=== PATIENT | female | born 1940 | race Caucasian/White ===

== ENCOUNTER 2016-06-12 11:41 | Day surgery (SDC) | payer OTHER, BC ==
[2016-06-12] VITALS (8 sets, daily range): BP systolic 108–136; BP diastolic 51–63; PULSE 60–67; TEMP 36.4–36.7; O2SAT 94–99; Ht 170.2 cm; Wt 59.0 kg
[~2016-06-12] VITALS: Ht 170.2 cm; Wt 59.0 kg
[~2016-06-12 11:41] MED LIST: CEFAZOLIN 1000MG/55 ML D5W IV SCH; CYTM25 PO; FOSAMAX; LACTATED RINGER'S 1000ML 1,000 ML IV SCH; LITH300T2 PO; SYN100 PO
[2016-06-12] MEDS ORDERED: MULT-506 PO (12:14)
[2016-06-12] MEDS ORDERED: CYAN100073 PO (12:14)
[2016-06-12 12:57] LABS: HEMATOCRIT 35.7 % (37-47); MEAN CELL VOLUME 89.7 fL (80-100); MEAN CORPUSCULAR HEMOGLOBIN 29.6 pg (25-34); PLATELET COUNT 189 K/uL (130-400); RED BLOOD COUNT 3.98 M/uL (4.2-5.4); WHITE BLOOD COUNT 7.19 K/uL (4.8-10.8)
[2016-06-12 13:12] LABS: PARTIAL THROMBOPLASTIN RATIO 1.1
[2016-06-12 13:18] LABS: MEAN CORPUSCULAR HGB CONC 33.1 g/dl (32-36)
[2016-06-12 13:20] LABS: BUN/CREATININE RATIO 25.8 (10-20); CALCIUM 9.2 mg/dl (8.5-10.1); CREATININE 0.73 mg/dl (0.60-1.20); POTASSIUM 4.4 mmol/L (3.5-5.1)
[2016-06-12] MEDS ORDERED: BACITRACIN 50000 UNIT VIAL ONE (13:53)
[2016-06-12] MEDS ORDERED: BACITRACIN OINT 0.9 GM PKT ONE (13:53)
[2016-06-12] MEDS ORDERED: LIDOCAINE HCL 1% 20 ML VIAL ONE (13:53)
--- NOTE | 2016-06-12 14:09 | Procedure Note ---
Pre-Mod Sedation Assessment General Date of Moderate Sedation: Jun 12, 2016. Vital Signs: Vital Signs Past 12 Hours Date Time Temp Pulse Resp B/P Pulse Ox O2 Delivery O2 Flow Rate FiO2 06/12/16 11:45 36.4 67 18 108/53 94 Room Air Review Cardiovascular: regular rate, rhythm Abdomen: normal bowel sounds Lungs: lungs clear Pre-Sedation Airway Assessment Oral Cavity: Capped Teeth Smoking Status: Never Smoker Procedure Planning Contraindications-for Mod Sed: None Yes Notes The planned sedation has been discussed with the patient and consent obtained. I have identified the patient, determined the appropriateness of sedation and have assessed the patient immediately prior to the procedure. All medicine(s) and interventions are by my order.
--- NOTE | 2016-06-12 14:09 | History & Physical Bridge Note ---
H&P Re-Evaluation Bridge Note: I have examined the patient, reviewed the History & Physical and in the interval since the performance of the History & Physical I have noted the following changes of clinical significance: No changes noted
[2016-06-12] MEDS ORDERED: MIDAZOLAM HCL 5 MG/ML 1 ML VIAL ONE (14:17)
[2016-06-12] MEDS ORDERED: FENTANYL CITRATE INJ 50 MCG/1 ML 2 ML VIAL ONE (14:17)
--- NOTE | 2016-06-12 15:12 | Procedure Note ---
Post-Mod Sedation Assessment General Date of Moderate Sedation Jun 12, 2016. Vital Signs: Vital Signs Past 12 Hours Date Time Temp Pulse Resp B/P Pulse Ox O2 Delivery O2 Flow Rate FiO2 06/12/16 11:45 36.4 67 18 108/53 94 Room Air Review - Discharge Criteria Vital Signs Stable: Yes Alert/Oriented/Conversant: Yes Returned to Baseline Mental St: Yes Nausea Absent/Minimal: Yes Pain/Discomfort/Absent/Minimal: Yes Normal/Baseline Respirations: Yes Active Bleeding?: No
[2016-06-12] MEDS ORDERED: KETOROLAC TROMETHAMINE 10 MG TAB PO PRN (15:15)
[2016-06-12] MEDS ORDERED: ACETAMINOPHEN 325 MG TAB PO PRN (15:15)
--- NOTE | 2016-06-12 15:15 | Cardiology Procedure Brief Nt ---
Preliminary Cardiology Note Procedure Date Jun 12, 2016. Pre-Procedure Diagnosis pacemaker GURMEET, lateral pacemaker position Post-Procedure Diagnosis same Procedure(s) Performed 1. Dual-chamber pacemaker replacement 2. Pacemaker relocation medially Gold [employer] Dr. Arora Mold Sander(s) none Estimated Blood Loss 10 cc Preliminary Findings Good chronic lead measurements Recommendations Monitor briefly and discharge Specimens Old pacemaker, return to Medtronic Anesthesia local with sedation Complication(s) None Disposition MTU
--- NOTE | 2016-06-12 16:13 | OPERATIVE REPORT ---
DATE OF OPERATION: 06/12/2016 DATE OF PROCEDURE: 06/12/2016. PREOPERATIVE DIAGNOSES: 1. Pacemaker at elective replacement indicator. 2. Pacemaker located laterally in the chest wall causing discomfort. POSTOPERATIVE DIAGNOSIS: Same. PROCEDURE: 1. Dual chamber pacemaker replacement. 2. Pocket location moved medial. SURGEON: Kvng Aorra M.D. ANESTHESIA: Local with sedation. HISTORY OF PRESENT ILLNESS: This is a 76-year-old woman who has a history of sick sinus syndrome for which she had a dual chamber pacemaker implanted 12/05/2007. That device reached recommended replacement time on 02/16/2016. She has been feeling fatigued with exertion since, most likely due to lack of rate response. She is brought to the laboratory for device replacement. She also notes that when she holds an against her chest she has discomfort at her pacemaker site which is nearly touching her left humerus in the lateral position. She is therefore brought to the laboratory for device replacement and moving the pacemaker more medial. OPERATION: After obtaining informed consent for the procedure, she was brought to the laboratory on the afternoon of 06/12/2016 being n.p.o. after midnight. She was identified in the laboratory, prepped and draped in standard sterile manner for a left-sided pacemaker revision. The left prepectoral region was anesthetized with 1% lidocaine local anesthetic and a 5 cm incision was made through the old scar and carried down to the pacemaker generator. The generator was dissected free of tissue and explanted. The pacemaker was disconnected from the leads. The old pacemaker was confirmed to be a Medtronic model ADDR01, serial number [id number], implanted 12/05/2007. This device will be returned to [employer]. The atrial lead is a Medtronic model 5076, serial number [id number] implanted 12/05/2007. This lead was evaluated in bipolar configuration at a pulse width of 0.5 milliseconds. Final atrial pacing threshold was 0.7 volts with a current of 1.6 milliamp, 5-volt lead impedance was 411 ohms and P-waves were sensed at 1.2 millivolts. This is a good threshold and this lead can be used. The ventricular lead is a Medtronic model 4092, serial number [id number], implanted 12/05/2007. This lead was evaluated in bipolar configuration at a pulse width of 0.5 milliseconds. The pacing threshold was 1.7 volts with a current of 4.3 milliamp, 5-volt lead impedance was 485 ohms and R-waves were sensed at 6.1 millivolts. Diaphragmatic pacing was not evaluated. This is a good threshold and this lead can be used. A new pacemaker (Medtronic Adapta) was attached to the leads and found to be functioning normally. The pacemaker pocket was enlarged in the medial direction about 3 cm through the pacemaker pocket. The pacemaker was then placed in the new pocket and the pocket was closed on the lateral end of the pacemaker to ensure that it did not migrate laterally. This was done with a 3-0 Vicryl suture. The incision was then closed with a running double subcutaneous closure of 3-0 Vicryl followed by running subcuticular skin closure of 4-0 Vicryl. Bacitracin ointment was placed on incision and a pressure dressing applied. The patient tolerated the procedure well, there were no complications and estimated blood loss was 10 mL. The patient was transferred to the ambulatory unit for brief monitoring and discharged. Details of the explanted pacemaker and the chronic leads are noted above. The new pacemaker is a Medtronic Adapta ADDR01, serial number [id number]. The lead was reprogrammed in the laboratory to final settings which are identical to her last device. This is not an MRI compatible system due to the presence of a timed ventricular lead. JAMSHID
[2016-06-12] MEDS ORDERED: CEPH500C2 PO (18:42)
--- NOTE | 2016-06-12 18:46 | Discharge Instructions ---
Discharge Instructions Admission Reason for Admission: Pacer GURMEET Discharge Discharge Diagnosis / Problem: Pacer replacement Discharge Goals Goal(s): Improve disease control Activity Recommendations Activity Limitations: resume your previous activity . Instructions / Follow-Up Instructions / Follow-Up ACTIVITY RECOMMENDATIONS: * Do not raise affected arm over head for 2 weeks. SPECIAL CARE INSTRUCTIONS: * If bleeding occurs, apply direct pressure to area for 5 minutes. * Call your doctor if you have severe pain, fever, drainage or bleeding at site. * Keep dressing on and dry.. * Keep any scheduled doctor's appointment. * Implant Card - hand held device with website information given. SKIN IRRITATION: * You may experience some redness and/or swelling in the area where radiation was administered. If any skin irritation occurs, please contact your family physician. FOLLOW UP VISIT: Dr. Arora Monday June 13, 2016 1:00 PM Current Hospital Diet Patient's current hospital diet: AHA Diet (Heart Healthy) Discharge Diet Recommended Diet: AHA Diet (Heart Healthy) Pending Studies Studies pending at discharge: no Medical Emergencies . Who to Call and When: Medical Emergencies: If at any time you feel your situation is an emergency, please call 911 immediately. . Non-Emergent Contact Non-Emergency issues call your: Primary Care Provider . . "Provider Documentation" section prepared by Kvng Arora. VTE Core Measure Inpt VTE Proph given/why not?: Treatment not indicated
[2016-10-17] MEDS ORDERED: CHOL100010 PO (08:43)
[2016-10-17] MEDS ORDERED: CYAN10005 PO (08:43)
[2016-10-17] MEDS ORDERED: LITHIUM PO (08:43)
[2016-10-17] MEDS ORDERED: B-CO1TAB53 PO (08:43)
[2016-10-17] MEDS ORDERED: LEVO112T4 PO (08:43)
[2016-10-17] MEDS ORDERED: CETI10TA84 PO (08:44)
== END 2016-06-12 18:55 | disposition home or self-care (01) ==
LOC: C.ACU 11:41
PROVIDERS: ATTEND Internal Medicine Cardiovascular Disease
DX: R07.89 Other chest pain (principal); Z95.0 Presence of cardiac pacemaker; I49.5 Sick sinus syndrome; F30.9 Manic episode, unspecified; E03.9 Hypothyroidism, unspecified; M85.80 Other specified disorders of bone density and structure, unspecified site; Z80.3 Family history of malignant neoplasm of breast; Z82.3 Family history of stroke

== ENCOUNTER → 2016-07-12 | Outpatient (CLI) | payer OTHER, BC ==
[~2016-07-12] MED LIST changes: +B-CO1TAB53 PO; -CEFAZOLIN 1000MG/55 ML D5W IV SCH; +CEPH500C2 PO; +CETI10TA84 PO; +CHOL100010 PO; +CYAN10005 PO; +CYAN100073 PO; -CYTM25 PO; -FOSAMAX; -LACTATED RINGER'S 1000ML 1,000 ML IV SCH; +LEVO112T4 PO; +LITHIUM PO; +MULT-506 PO
[2016-07-12 09:43] LABS: BASO % 0.2 %; BASO ABS # 0.01 K/uL (0-0.2); COMPLETE YES; EOS % 6.3 %; HEMATOCRIT 39.8 % (37-47); IG% 0.2 %; MEAN CELL VOLUME 92.1 fL (80-100); MEAN CORPUSCULAR HEMOGLOBIN 29.2 pg (25-34); MEAN CORPUSCULAR HGB CONC 31.7 g/dl (32-36); MEAN PLATELET VOLUME 10.8 fL (7.4-10.4); NEUT % 55.3 %; PLATELET COUNT 190 K/uL (130-400); RED BLOOD COUNT 4.32 M/uL (4.2-5.4); WHITE BLOOD COUNT 6.07 K/uL (4.8-10.8)
[2016-07-12 09:59] LABS: ESTIMATED AVERAGE GLUCOSE 97 mg/dl; HA1C FLAG Normal (Normal)
[2016-07-12 10:01] LABS: ALB/GLOB RATIO 1.1 (0.9-2); ALKALINE PHOSPHATASE 60 U/L (45-117); ALT/SGPT 25 U/L (12-78); AST/SGOT 16 U/L (15-37); BLOOD UREA NITROGEN 23 mg/dl (7-18); BUN/CREATININE RATIO 28.2 (10-20); CALCIUM 9.1 mg/dl (8.5-10.1); CARBON DIOXIDE 25 mmol/L (21-32); CHLORIDE 111 mmol/L (98-107); CHOLESTEROL 233 mg/dl (0-200); CHOLESTEROL/HDL RATIO 2.9; CREATININE 0.83 mg/dl (0.60-1.20); GLUCOSE 77 mg/dl (70-99); HDL CHOLESTEROL 79 mg/dl; LDL CHOLESTEROL CALCULATED 139 mg/dl; PHOSPHORUS 2.7 mg/dl (2.5-4.9); SODIUM 143 mmol/L (136-145); TRIGLYCERIDES 77 mg/dl (0-150); VERY LOW DENSITY LIPOPROT CALC 15 mg/dl
[2016-07-12 10:04] LABS: THYROID STIMULATING HORMONE 0.068 uIu/ml (0.300-4.500)
[2016-07-13 11:01] LABS: C-REACTIVE PROT HIGHSEN 1.1 MG/L
== END | disposition home or self-care (01) ==
LOC: C.LAB 07:18
PROVIDERS: ATTEND Family Medicine
DX: F06.31 Mood disorder due to known physiological condition with depressive features (principal); R73.09 Other abnormal glucose

== ENCOUNTER → 2016-10-11 | Outpatient (CLI) | payer OTHER, BC ==
[2016-10-11 07:58] LABS: BASO % 0.3 %; BASO ABS # 0.02 K/uL (0-0.2); COMPLETE YES; EOS % 6.8 %; HEMATOCRIT 39.6 % (37-47); IG% 0.3 %; LYMPH % 24.1 %; LYMPH ABS # 1.46 K/uL (1.2-3.4); MEAN CELL VOLUME 92.5 fL (80-100); MEAN CORPUSCULAR HEMOGLOBIN 29.4 pg (25-34); MEAN CORPUSCULAR HGB CONC 31.8 g/dl (32-36); MONO % 9.6 %; NEUT % 58.9 %; PLATELET COUNT 218 K/uL (130-400); RED BLOOD COUNT 4.28 M/uL (4.2-5.4); WHITE BLOOD COUNT 6.07 K/uL (4.8-10.8)
[2016-10-11 08:30] LABS: ALT/SGPT 20 U/L (12-78); BLOOD UREA NITROGEN 18 mg/dl (7-18); BUN/CREATININE RATIO 23.3 (10-20); CARBON DIOXIDE 27 mmol/L (21-32); CHLORIDE 110 mmol/L (98-107); CHOLESTEROL 227 mg/dl (0-200); CREATININE 0.79 mg/dl (0.60-1.20); GLUCOSE 80 mg/dl (70-99); POTASSIUM 4.2 mmol/L (3.5-5.1); SODIUM 142 mmol/L (136-145); TRIGLYCERIDES 81 mg/dl (0-150); VERY LOW DENSITY LIPOPROT CALC 16 mg/dl
[2016-10-11 08:40] LABS: ALKALINE PHOSPHATASE 63 U/L (45-117); AST/SGOT 14 U/L (15-37); CHOLESTEROL/HDL RATIO 3.2; HDL CHOLESTEROL 70 mg/dl; LDL CHOLESTEROL CALCULATED 141 mg/dl; THYROID STIMULATING HORMONE 0.024 uIu/ml (0.300-4.500)
== END | disposition home or self-care (01) ==
LOC: C.LAB 06:36
PROVIDERS: ATTEND Family Medicine
DX: E03.9 Hypothyroidism, unspecified (principal); M81.0 Age-related osteoporosis without current pathological fracture; F31.9 Bipolar disorder, unspecified

== ENCOUNTER → 2017-03-06 | Outpatient (CLI) | payer OTHER, BC ==
[~2017-03-06] MED LIST changes: -CEPH500C2 PO; -CYAN100073 PO; -LITH300T2 PO; -MULT-506 PO; -SYN100 PO
[2017-03-06 09:36] LABS: BASO % 0.4 %; BASO ABS # 0.02 K/uL (0-0.2); COMPLETE YES; EOS % 6.6 %; HEMATOCRIT 37.2 % (37-47); IG% 0.2 %; LYMPH % 24.6 %; MEAN CELL VOLUME 93.5 fL (80-100); MEAN CORPUSCULAR HEMOGLOBIN 29.4 pg (25-34); MEAN CORPUSCULAR HGB CONC 31.5 g/dl (32-36); MEAN PLATELET VOLUME 10.3 fL (7.4-10.4); MONO % 8.7 %; NEUT % 59.5 %; PLATELET COUNT 203 K/uL (130-400); RED BLOOD COUNT 3.98 M/uL (4.2-5.4); WHITE BLOOD COUNT 5.29 K/uL (4.8-10.8)
[2017-03-06 09:45] LABS: INR 0.9 (0.9-1.1); PARTIAL THROMBOPLASTIN RATIO 1.1
[2017-03-06 09:49] LABS: ALT/SGPT 17 U/L (12-78); BLOOD UREA NITROGEN 17 mg/dl (7-18); CALCIUM 9.5 mg/dl (8.5-10.1); CARBON DIOXIDE 24 mmol/L (21-32); CHLORIDE 113 mmol/L (98-107); CHOLESTEROL 191 mg/dl (0-200); CREATININE 0.74 mg/dl (0.60-1.20); GLUCOSE 84 mg/dl (70-99); POTASSIUM 4.2 mmol/L (3.5-5.1); SODIUM 142 mmol/L (136-145); TRIGLYCERIDES 66 mg/dl (0-150); URIC ACID 4.3 mg/dl (2.6-7.2); VERY LOW DENSITY LIPOPROT CALC 13 mg/dl
[2017-03-06 09:59] LABS: ALKALINE PHOSPHATASE 61 U/L (45-117); AST/SGOT 12 U/L (15-37); CHOLESTEROL/HDL RATIO 2.9; HDL CHOLESTEROL 67 mg/dl; LDL CHOLESTEROL CALCULATED 111 mg/dl; THYROID STIMULATING HORMONE 0.032 uIu/ml (0.300-4.500); TOTAL IRON BINDING CAPACITY 233 mcg/dl (250-450)
[2017-03-06 10:03] LABS: ESTIMATED AVERAGE GLUCOSE 103 mg/dl; HA1C FLAG Normal (Normal)
== END | disposition home or self-care (01) ==
LOC: C.LAB 07:04
PROVIDERS: ATTEND Family Medicine
DX: Z01.818 Encounter for other preprocedural examination (principal); R73.09 Other abnormal glucose; E55.9 Vitamin D deficiency, unspecified; D51.9 Vitamin B12 deficiency anemia, unspecified; E78.9 Disorder of lipoprotein metabolism, unspecified; R53.83 Other fatigue; Z51.81 Encounter for therapeutic drug level monitoring; Z79.899 Other long term (current) drug therapy

== ENCOUNTER → 2017-05-29 | Day surgery (SDC) | payer OTHER, BC ==
[2016-10-17 08:43] VITALS: BMI 19.0
[2017-05-21 13:00] VITALS: Ht 170.2 cm; Wt 55.5 kg
[~2017-05-29] VITALS: Ht 170.2 cm; Wt 55.5 kg
[~2017-05-29] MED LIST changes: -B-CO1TAB53 PO; -CETI10TA84 PO; -CHOL100010 PO; -CYAN10005 PO; +GLUC10007 PO; +LIDOCAINE HCL 2% 2 ML VIAL (20MG/ML) ONE; +LITH150C PO; -LITHIUM PO; +MIDAZOLAM HCL 1 MG/ML 2ML VIAL ONE; +ONDANSETRON INJ 2 MG/ML 2 ML VIAL ONE; +PROPOFOL IV EMULSION 10 MG/ML 20 ML VIAL IV ONE; +SODIUM CHLORIDE 0.9% 500ML 500 ML IV ONE; +VITAMIN B12 PO; +VITAMIN D PO
--- NOTE | 2017-05-29 14:50 | Endo History and Physical ---
History & Physical Date of Service: May 29, 2017. Chief Complaint: Screening colonoscopy. Referring Physician: Dr. Noel History of Present Illness 77 yo CF who presents for screening colonoscopy. Past Surgical History Hx Cardiac Surgery: No Hx Internal Defibrillator: No Hx Pacemaker: Yes (8 YEAR AGO AND BATTERY REPLACEMENT -2016) Hx Abdominal Surgery: No Hx of Implantable Prosthesis: No Hx Post-Op Nausea and Vomiting: No Hx Cancer Surgery: No Hx Thoracic Surgery: No Hx Orthopedic: No Hx Urinary Tract Surgery: No Family History None Social History Smoking Status: Never Smoker Hx Substance Use: No Hx Alcohol Use: No Allergies Coded Allergies: NO KNOWN DRUG ALLERGIES (Verified Allergy, Unknown, ., 05/21/17) Current Medications Reported Home Medications Medications Dose Route/Sig Max Daily Dose Days Date Category [Vitamin B12] 1 Tab PO HS 05/21/17 Reported Glucosamine (Glucosamine Sulfate) 1,000 Mg Tab 1,000 Mg PO HS 05/21/17 Reported [Vitamin D] 1 Tab PO HS 05/21/17 Reported Levothyroxine Sodium 112 Mcg Tab 1 Tab PO HS 05/21/17 Reported [place] Carbonate 150 Mg Cap 1 Cap PO BID 05/21/17 Reported Vital Signs Weight (Kilograms): 55.45 Height (Feet): 5 Height (Inches): 7 Physical Exam General Appearance: WD/WN, no apparent distress Respiratory/Chest: Auscultation: breath sounds normal Cardiovascular: Heart Auscultation: RRR Abdomen: Bowel Sounds: normal Inspection & Palpation: soft, non-distended, no tenderness, guarding & rebound Assessment and Plan Assessment: 77 yo CF who presents for screening colonoscopy. Plan: Proceed with colonoscopy.
--- NOTE | 2017-05-29 15:35 | GI REPORT ---
Procedure Date: 05/29/2017 2:47 PM Procedure: Colonoscopy Indications: Screening for colorectal malignant neoplasm Medicines: Monitored Anesthesia Care Complications: No immediate complications. Estimated Blood Loss: Estimated blood loss: none. Procedure: Pre-Anesthesia Assessment: - Prior to the procedure, a History and Physical was performed, and patient medications and allergies were reviewed. The patient's tolerance of previous anesthesia was also reviewed. The risks and benefits of the procedure and the sedation options and risks were discussed with the patient. All questions were answered, and informed consent was obtained. Prior Anticoagulants: The patient has taken no previous anticoagulant or antiplatelet agents. ASA Grade Assessment: III - A patient with severe systemic disease. After reviewing the risks and benefits, the patient was deemed in satisfactory condition to undergo the procedure. After I obtained informed consent, the scope was passed under direct vision. Throughout the procedure, the patient's blood pressure, pulse, and oxygen saturations were monitored continuously. The scope was introduced through the anus and advanced to the terminal ileum. The colonoscopy was performed without difficulty. The patient tolerated the procedure well. The quality of the bowel preparation was good. The terminal ileum, ileocecal valve, appendiceal orifice, and rectum were photographed. Findings: The perianal and digital rectal examinations were normal. Multiple small-mouthed diverticula were found in the sigmoid colon. Non-bleeding internal hemorrhoids were found during retroflexion. The hemorrhoids were small. Impression: - Diverticulosis in the sigmoid colon. - Non-bleeding internal hemorrhoids. - No specimens collected. Recommendation: - Resume previous diet. - Continue present medications. - No repeat colonoscopy due to age and the absence of advanced adenomas. - Return to primary care physician as previously scheduled. Saurabh Colbert, 05/29/2017 3:35:42 PM This report has been signed electronically. Note Initiated On: 05/29/2017 2:47 PM I attest to the content of the Intraoperative Record and orders documented therein, exceptions below
--- NOTE | 2017-05-29 15:37 | Discharge Instructions ---
Endoscopy Patient Instructions Date / Procedure(s) Performed May 29, 2017. Colonoscopy Allergy Information Coded Allergies: NO KNOWN DRUG ALLERGIES (Verified Allergy, Unknown, ., 05/21/17) Discharge Date / Findings May 29, 2017. Diverticulosis Internal hemorrhoids Medication Instructions OK to resume all medications today as prescribed Reported Home Medications Medications Dose Route/Sig Max Daily Dose Days Date Category [Vitamin B12] 1 Tab PO HS 05/21/17 Reported Glucosamine (Glucosamine Sulfate) 1,000 Mg Tab 1,000 Mg PO HS 05/21/17 Reported [Vitamin D] 1 Tab PO HS 05/21/17 Reported Levothyroxine Sodium 112 Mcg Tab 1 Tab PO HS 05/21/17 Reported [place] Carbonate 150 Mg Cap 1 Cap PO BID 05/21/17 Reported Provider Instructions Activity Restrictions - No exercising or heavy lifting for 24 hours. - Do not drink alcohol the day of the procedure. - Do not drive a car or operate machinery until the day after the procedure. - Do not make any important decisions or sign important papers in 24 hours after the procedure. Following Day: - Return to full activity which may include returning to work/school. Diet Start your diet with liquids and light foods (jello, soup, juice, toast). Then eat your usual diet if not nauseated. Treatment For Common After Affects For mild abdominal pain, bloating, or excessive gas: - Rest - Eat lightly - Lie on right side Follow-Up Information Follow-up with Dr Noel as scheduled Anesthesia Information What You Should Know You have had a procedure that required some medicine to reduce anxiety and discomfort. This treatment is called moderate sedation. After receiving the treatment, you may be sleepy, but you will be able to breathe on your own. The effects of the treatment may last for several hours. Follow these instructions along with Activity/Diet recommendations noted above: * Do NOT do anything where dizziness or clumsiness would be dangerous. * Rest quietly at home today, then you can be up and about tomorrow. * Have a responsible person stay with you the rest of today. * You may have had an I.V. today. If so, you may take the dressing off later today. Recommendations Call your doctor if: * Trouble breathing * Continuous vomiting for more than 24 hours * Temperature above 101 degrees * Severe abdominal pain or bloating * Pain not relieved by pain medicine ordered * There is increased drainage or redness from any incision * A large amount of rectal bleeding greater than 2-3 tablespoons. (If you had a polyp/s removed or have hemorrhoids, a small amount of blood - from the rectum is to be expected.) * You have any unanswered questions or concerns. IN THE EVENT OF A SERIOUS EMERGENCY, GO TO THE NEAREST EMERGENCY ROOM Your discharge instructions were prepared by provider Saurabh Colbert. Patient Instructions Signature Page Sonia Carey Patient (or Guardian) Signature/Date: I have read and understand the instructions given to me by my caregivers. Caregiver/RN/Doctor Signature/Date: The above-named patient and/or guardian has received patient instructions on this date. + Original Patient Signature Page (only) stays with chart. Please make copy for patient.
--- NOTE | 2017-05-29 15:42 | Anesthesiology Progress Note ---
Anesthesia Post Op Note Date & Time May 29, 2017 at 15:42 Vital Signs Vital Signs Past 12 Hours Date Time Temp Pulse Resp B/P (MAP) Pulse Ox O2 Delivery O2 Flow Rate FiO2 05/29/17 15:35 66 2 125/59 (81) 99 Room Air 05/29/17 14:53 36.7 66 18 121/61 (81) 99 Room Air Notes Mental Status: alert / awake / arousable, participated in evaluation Pt Amnestic to Procedure: Yes Nausea / Vomiting: adequately controlled Pain: adequately controlled Airway Patency, RR, SpO2: stable & adequate BP & HR: stable & adequate Hydration State: stable & adequate Anesthetic Complications: no major complications apparent
[2017-05-29 16:05] VITALS: BP 119/52; PULSE 66; O2SAT 99
== END | disposition home or self-care (01) ==
LOC: C.GI 14:18
PROVIDERS: ATTEND Internal Medicine
DX: Z12.11 Encounter for screening for malignant neoplasm of colon (principal); K57.30 Diverticulosis of large intestine without perforation or abscess without bleeding; K64.8 Other hemorrhoids; Z95.0 Presence of cardiac pacemaker; K21.9 Gastro-esophageal reflux disease without esophagitis; M19.90 Unspecified osteoarthritis, unspecified site; E03.9 Hypothyroidism, unspecified; F31.9 Bipolar disorder, unspecified

== ENCOUNTER → 2017-09-18 | Outpatient (CLI) | payer OTHER, BC ==
[~2017-09-18] MED LIST changes: -LIDOCAINE HCL 2% 2 ML VIAL (20MG/ML) ONE; -MIDAZOLAM HCL 1 MG/ML 2ML VIAL ONE; -ONDANSETRON INJ 2 MG/ML 2 ML VIAL ONE; -PROPOFOL IV EMULSION 10 MG/ML 20 ML VIAL IV ONE; -SODIUM CHLORIDE 0.9% 500ML 500 ML IV ONE
[2017-09-18 09:37] LABS: BASO % 0.2 %; BASO ABS # 0.01 K/uL (0-0.2); EOS % 4.8 %; EOS ABS # 0.29 K/uL (0-0.5); HEMATOCRIT 40.1 % (37-47); HEMOGLOBIN 12.9 g/dL (12.0-16.0); IG# 0.01 K/uL (0.00-0.02); LYMPH % 22.6 %; LYMPH ABS # 1.35 K/uL (1.2-3.4); MEAN CELL VOLUME 92.4 fL (80-100); MEAN CORPUSCULAR HEMOGLOBIN 29.7 pg (25-34); MEAN CORPUSCULAR HGB CONC 32.2 g/dl (32-36); MEAN PLATELET VOLUME 10.6 fL (7.4-10.4); MONO % 9.7 %; MONO ABS # 0.58 K/uL (0.11-0.59); NEUT % 62.5 %; NEUT ABS # 3.74 K/uL (1.4-6.5); PLATELET COUNT 189 K/uL (130-400); RED CELL DISTRIBUTION WIDTH SD 47.7 fL (36.4-46.3); WHITE BLOOD COUNT 5.98 K/uL (4.8-10.8)
[2017-09-18 09:49] LABS: ALBUMIN 3.7 gm/dl (3.4-5.0); ALT/SGPT 19 U/L (12-78); AST/SGOT 13 U/L (15-37); BLOOD UREA NITROGEN 21 mg/dl (7-18); CALCIUM 9.5 mg/dl (8.5-10.1); CARBON DIOXIDE 24 mmol/L (21-32); CHOLESTEROL 218 mg/dl (0-200); CREATININE 0.83 mg/dl (0.60-1.20); GLUCOSE 75 mg/dl (70-99); POTASSIUM 4.2 mmol/L (3.5-5.1); SODIUM 139 mmol/L (136-145); URIC ACID 4.2 mg/dl (2.6-7.2)
[2017-09-18 09:54] LABS: HEMOGLOBIN A1C 5.2 % (4.5-5.6)
[2017-09-18 09:58] LABS: ALKALINE PHOSPHATASE 58 U/L (45-117); LDL CHOLESTEROL CALCULATED 128 mg/dl; TOTAL PROTEIN 6.8 gm/dl (6.4-8.2); TRANSFERRIN 242 mg/dl (200-360)
== END | disposition home or self-care (01) ==
LOC: C.LAB 07:08
PROVIDERS: ATTEND Family Medicine
DX: E88.81 Metabolic syndrome and other insulin resistance (principal); E55.9 Vitamin D deficiency, unspecified; D51.9 Vitamin B12 deficiency anemia, unspecified; E78.9 Disorder of lipoprotein metabolism, unspecified; R53.83 Other fatigue

== ENCOUNTER → 2017-10-22 | Outpatient (CLI) | payer OTHER, BC | END | disposition home or self-care (01) | LOC: C.MAMM 08:24 | PROVIDERS: ATTEND Family Medicine | DX: M85.88 Other specified disorders of bone density and structure, other site (principal) ==

== ENCOUNTER → 2017-10-28 | Outpatient (CLI) | payer OTHER, BC ==
--- NOTE | 2017-10-29 13:18 | MAMMOGRAPHY REPORT ---
BILATERAL DIGITAL SCREENING MAMMOGRAM TOMOSYNTHESIS WITH CAD: 10/28/2017 CLINICAL HISTORY: Routine screening. Patient has no complaints. TECHNIQUE: Breast tomosynthesis in addition to standard 2D mammography was performed. Current study was also evaluated with a Computer Aided Detection (CAD) system. COMPARISON: Comparison is made to exams dated: 10/13/2015 mammogram, 09/27/2014 mammogram, 09/21/2013 ma mmogram, 08/15/2012 mammogram, 07/25/2011 mammogram - [facility], and 11/24/2008. BREAST COMPOSITION: There are scattered areas of fibroglandular density in both breasts. FINDINGS: A metallic cardiac device projects over the superior left pectoralis muscle on the MLO view . There are stable grouped round and stable nodular asymmetry in the slightly medial, posterior left breast on the cc view. Punctate microcalcifications in the left upper outer quadrant. No suspiciou s mass, architectural distortion or new cluster of microcalcifications is seen. IMPRESSION: ACR BI-RADS CATEGORY 1: NEGATIVE There is no mammographic evidence of malignancy. A 1 year screening mammogram is recommended. The pa tient will receive written notification of the results. Approximately 10% of breast cancers are not detected with mammography. A negative mammographic report should not delay biopsy if a clinically suggestive mass is present. Loretta Pollock M.D. ay/:10/28/2017 16:46:09 Toe Puncher: Do VIRAMONTES)(Luiza), [facility] letter sent: Normal 1/2 BI-RADS Code: ACR BI-RADS Category 1: Negative
== END | disposition home or self-care (01) ==
LOC: C.MAMM 13:35
PROVIDERS: ATTEND Family Medicine
DX: Z12.31 Encounter for screening mammogram for malignant neoplasm of breast (principal)

== ENCOUNTER 2020-10-05 13:47 | Inpatient (IN) ==
[2020-10-05] MEDS ORDERED: DIPHTHERIA/TETANUS/PERTUSSIS 0.5 ML SYR/VIAL IM ONE (14:02)
[2020-10-05] MEDS ORDERED: fentaNYL citrate 100 MCG/2 ML VIAL IV STA (14:02)
[2020-10-05] MEDS ORDERED: ceFAZolin 2000MG 2,000 MG/15 ML SYR IV STA (14:02)
--- NOTE | 2020-10-05 14:10 | Emergency Department Note ---
History of Present Illness General Chief complaint: Wrist Pain Stated complaint: RIGHT WRIST PAIN Time Seen by Provider: 10/05/20 13:56 Source: patient Mode of arrival: ambulatory Limitations: no limitations History of Present Illness Maximum Pain Intensity: 8 This patient is a 80-year-old female who presents to the emergency department for evaluation of a right wrist injury. Patient states that she was walking w ith friends and was not looking at the ground, causing her to trip and fall. She injured her right wrist/hand. She denies striking her head or any other injuries. There is a laceration to the wrist and significant pain in the wrist. She is not able to move it. She rates her pain an 8/10. The injury occurred about 30 minutes prior to arrival. She is unsure when her last tetanus vaccine was. Denies numbness. Home Medications Medication Instructions Recorded Confirmed Type levothyroxine 112 mcg tablet 112 mcg PO DAILY #90 tab 03/13/19 10/05/20 History alendronate 70 mg PO WK 10/05/20 10/05/20 History lithium carbonate 150 mg PO DAILY 10/05/20 10/05/20 History lithium carbonate 300 mg PO DAILY 10/05/20 10/05/20 History acetaminophen 1,000 mg PO Q8 #30 tab 10/07/20 Rx docusate sodium 100 mg PO BID #20 cap 10/07/20 Rx tramadol 50 - 100 mg PO Q4H PRN #10 tab 10/07/20 Rx Allergies Allergy/AdvReac Type Severity Reaction Status Date / Time No Known Drug Allergies Allergy Unknown . Verified 10/05/20 14:57 Past Med/Surg History Medical History Cardiac pacemaker Hypothyroidism Social History Smoking Status: Never smoker Hx Alcohol Use: No Hx Substance Use: No Preferred Language: Albanian Communication Ability: Effective Beliefs That Will Affect Care: None Current Living Situation: Spouse Feels Safe at Home: Yes Assistive Devices: Brace/Splint/Immobilizer Review of Systems A total of 10 systems reviewed and were otherwise negative Physical Exam Vital Signs Vital Signs - 24 hr 10/05/20 13:51 10/05/20 14:02 10/05/20 14:46 Temperature 36.9 C Temperature Source Temporal Artery Scan Pulse Rate 76 Pulse Rate [Apical] 61 Pulse Rhythm [Apical] Regular Respiratory Rate 20 14 Respiratory Effort / Characteristics Non-Labored Respiratory Depth Normal Respiratory Pattern Regular Blood Pressure 134/71 Blood Pressure [Left Arm] 118/68 Blood Pressure Mean 92 Blood Pressure Mean [Left Arm] 84 Blood Pressure Position [Left Arm] Lying Pulse Oximetry 99 98 Oxygen Delivery Method Room Air Room Air Room Air Sepsis Recent Fever Within 48 Hours No Sepsis New/Unexplained Change in Mental Status No Sepsis Action Taken by Nursing No Action Required 10/05/20 16:04 Temperature Temperature Source Pulse Rate Pulse Rate [Apical] 64 Pulse Rhythm [Apical] Respiratory Rate 16 Respiratory Effort / Characteristics Non-Labored Respiratory Depth Normal Respiratory Pattern Blood Pressure Blood Pressure [Left Arm] 118/69 Blood Pressure Mean Blood Pressure Mean [Left Arm] 85 Blood Pressure Position [Left Arm] Pulse Oximetry 97 Oxygen Delivery Method Room Air Sepsis Recent Fever Within 48 Hours Sepsis New/Unexplained Change in Mental Status Sepsis Action Taken by Nursing VITALS: Vitals are noted on the nurse's note and reviewed by myself. GENERAL: This is a 80-year-old female, in no acute distress but uncomfortable appearing, well-developed well-nourished. SKIN: There is a small, 1 cm laceration to the ventral aspect of the right wrist with mild oozing bleeding. EYES: PERRLA, EOMs intact. EARS: No hemotympanum. MOUTH: Mucous membranes moist, normal oropharynx. NECK: No cervical spine tenderness. HEART: Regular rate and rhythm, no murmurs, gallops or rubs. LUNGS: Clear to auscultation throughout all lung verdugo. ABDOMEN: Soft, nontender to palpation. MUSCULOSKELETAL: Obvious deformity of the right wrist with significant tenderness to palpation of the wrist. Full range of motion of the fingers. Minimal tenderness of the right elbow. Laceration to the ventral aspect of the wrist as described in the skin section. NEURO: Patient was alert and oriented to person place and time. Distal sensation is intact. Course Course Splint placement: Splint: Ortho-Glass volar right wrist splint Indication: Open right wrist fracture Ortho-Glass splint was applied by the ED bone density technician under my supervision. Neurovascular status reassessed by myself status post splint placement and was intact. Consultations Consultation #1: Dr. Gillis - [facility] Dr. Gillis recommended placing a dressing and splint on the wrist and will send someone to evaluate the patient. Administered Medications Discontinued Medications Acetaminophen (Acetaminophen 500 Mg Tab) 1,000 mg PO Q8 PETER Stop: 11/04/20 21:59 Last Admin: 10/07/20 06:26 Dose: 1,000 mg Documented by: [id number] Admin: 10/06/20 21:09 Dose: 1,000 mg Documented by: [id number] Admin: 10/06/20 14:00 Dose: 1,000 mg Documented by: [id number] Admin: 10/06/20 05:35 Dose: 1,000 mg Documented by: [id number] Admin: 10/05/20 22:17 Dose: 1,000 mg Documented by: [id number] Bupivacaine HCl (Bupivacaine 0.5 % 5 Mg/1 Ml Mpf 30ml Vial) Confirm Administered Dose 30 ml .ROUTE .STK-MED ONE Stop: 10/05/20 16:12 Last Admin: 10/05/20 20:08 Dose: 10 ml Documented by: [id number] Dexamethasone (Dexamethasone 4 Mg Tab) 8 mg PO TODAY@08 PETER Stop: 10/06/20 08:01 Last Admin: 10/06/20 08:40 Dose: 8 mg Documented by: [id number] Diphenhydramine HCl (Diphenhydramine 50 Mg/Ml Vial) 25 mg IV Q8H PRN PRN Reason: Itching Stop: 11/04/20 20:28 Last Admin: 10/06/20 23:31 Dose: 25 mg Documented by: [id number] Diphtheria/Pertussis/Tetanus Vacc (Diphtheria/Tetanus/Pertussis 0.5 Ml Syr/Vial) 0.5 ml IM .ONCE ONE Stop: 10/05/20 14:03 Last Admin: 10/05/20 14:30 Dose: 0.5 ml Documented by: [id number] Docusate Sodium (Docusate Sodium 100 Mg Cap) 100 mg PO BID PETER Stop: 11/04/20 20:59 Last Admin: 10/07/20 07:58 Dose: Not Given Documented by: [id number] Admin: 10/06/20 21:10 Dose: Not Given Documented by: [id number] Admin: 10/06/20 08:41 Dose: 100 mg Documented by: [id number] Admin: 10/05/20 22:17 Dose: 100 mg Documented by: [id number] Ergocalciferol (Ergocalciferol 50,000 Units 1250 Mcg Cap) 50,000 units PO NOW ONE Stop: 10/06/20 13:31 Last Admin: 10/06/20 19:45 Dose: 50,000 units Documented by: [id number] Fentanyl Citrate (Fentanyl Citrate 100 Mcg/2 Ml Vial) 50 mcg IV NOW STA Stop: 10/05/20 14:03 Last Admin: 10/05/20 14:27 Dose: 50 mcg Documented by: [id number] Cefazolin Sodium (Ancef 2000mg) 2,000 mg in 15 mls @ 3.75 mls/min IV NOW STA Stop: 10/05/20 14:05 Last Admin: 10/05/20 14:32 Dose: 3.75 mls/min Documented by: [id number] Lactated Ringer's (Lr) 1,000 mls @ 60 mls/hr IV .[id number] PETER Stop: 10/06/20 10:09 Last Admin: 10/05/20 23:52 Dose: Not Given Documented by: [id number] Cefazolin Sodium (Ancef 1000mg) 1,000 mg in 7.5 mls @ 2.5 mls/min IV PREOP PETER; Protocol Stop: 10/05/20 20:00 Last Admin: 10/05/20 17:53 Dose: 2.5 mls/min Documented by: [id number] Sodium Chloride (Nss 1000ml) 1,000 mls @ 100 mls/hr IV .Q10H PETER Stop: 10/06/20 06:00 Last Infusion: 10/06/20 05:41 Dose: 0 mls/hr Documented by: [id number] Admin: 10/05/20 22:16 Dose: 100 mls/hr Documented by: [id number] Cefazolin Sodium (Ancef 1000mg) 1,000 mg in 7.5 mls @ 2.5 mls/min IV Q8H PETER; Protocol Stop: 10/06/20 18:02 Last Admin: 10/06/20 18:26 Dose: 2.5 mls/min Documented by: [id number] Admin: 10/06/20 11:37 Dose: 2.5 mls/min Documented by: [id number] Admin: 10/06/20 01:38 Dose: 2.5 mls/min Documented by: [id number] Levothyroxine Sodium (Levothyroxine Sodium 112 Mcg Tablet) 112 mcg PO DAILYBB [facility] Stop: 11/05/20 06:29 Last Admin: 10/07/20 06:26 Dose: 112 mcg Documented by: [id number] Admin: 10/06/20 05:35 Dose: 112 mcg Documented by: [id number] Lidocaine HCl (Lidocaine Hcl 1% 20 Ml Vial) Confirm Administered Dose 20 ml .ROUTE .STK-MED ONE Stop: 10/05/20 17:49 Last Admin: 10/05/20 20:08 Dose: 10 ml Documented by: [id number] Mesic Carbonate (Mesic Carbonate 300 Mg Tab) 450 mg PO DAILY PETER Stop: 11/05/20 08:59 Last Admin: 10/07/20 07:59 Dose: 450 mg Documented by: [id number] Admin: 10/06/20 08:41 Dose: 450 mg Documented by: [id number] Morphine Sulfate (Morphine Sulfate 4 Mg/Ml 1 Ml Carp\Vial) 4 mg IV NOW STA Stop: 10/05/20 15:18 Last Admin: 10/05/20 15:24 Dose: 4 mg Documented by: [id number] Multivitamins (Multivitamin Tab) 1 tab PO QAM [facility] Stop: 11/05/20 08:59 Last Admin: 10/07/20 07:59 Dose: 1 tab Documented by: [id number] Admin: 10/06/20 08:41 Dose: 1 tab Documented by: [id number] Ondansetron HCl (Ondansetron Inj 2 Mg/Ml 2 Ml Vial) 4 mg IV NOW STA Stop: 10/05/20 15:18 Last Admin: 10/05/20 15:24 Dose: 4 mg Documented by: [id number] Sennosides (Senna 8.6 Mg Tab) 17.2 mg PO HS [facility] Stop: 11/04/20 20:59 Last Admin: 10/06/20 21:10 Dose: Not Given Documented by: [id number] Admin: 10/05/20 22:17 Dose: 17.2 mg Documented by: [id number] Medical Decision Making Differential Diagnosis Differential diagnosis includes radius fracture, ulnar fracture, contusion, dislocation, open fracture, among others. Home Medications Current Medication List: was personally reviewed by me Laboratory Data Attestation: I reviewed the patient's lab results. Result diagrams: 10/06/20 06:58 10/06/20 06:58 Lab Results 10/05/20 10/05/20 10/05/20 Range/Units 14:15 14:15 15:03 WBC 8.51 (4.8-10.8) K/uL RBC 4.10 L (4.2-5.4) M/uL Hgb 12.3 (12.0-16.0) g/dL Hct 38.3 (37-47) % MCV 93.4 (80-100) fL MCH 30.0 (25-34) pg MCHC 32.1 (32-36) g/dL RDW Std Deviation 49.0 H (36.4-46.3) fL RDW Coeff of Aly 14.2 (11.5-14.5) % Plt Count 242 (130-400) K/uL MPV 11.0 H (7.4-10.4) fL Immature Gran % (Auto) 0.1 % Neut % (Auto) 62.8 % Lymph % (Auto) 25.3 % Brown % (Auto) 8.2 % Eos % (Auto) 3.4 % Baso % (Auto) 0.2 % Neut # (Auto) 5.34 (1.4-6.5) K/uL Lymph # (Auto) 2.15 (1.2-3.4) K/uL Brown # (Auto) 0.70 H (0.11-0.59) K/uL Eos # (Auto) 0.29 (0-0.5) K/uL Baso # (Auto) 0.02 (0-0.2) K/uL Immature Gran # (Auto) 0.01 (0.00-0.02) K/uL Sodium 139 (136-145) mmol/L Potassium 4.7 (3.5-5.1) mmol/L Chloride 112 H (98-107) mmol/L Carbon Dioxide 24 (21-32) mmol/L Anion Gap 3.0 (3-11) BUN 31 H (7-18) mg/dl Creatinine 1.16 (0.6-1.2) mg/dl Est Cr Clr Drug Dosing 36.6 ml/min Est GFR ( Amer) 51.9 Est GFR (Non-Af Amer) 44.7 BUN/Creatinine Ratio 26.4 H (10-20) Glucose 101 H (70-99) mg/dl Calcium 10.3 H (8.5-10.1) mg/dl Total Bilirubin 0.3 (0.2-1) mg/dl AST 25 (15-37) U/L ALT 33 (12-78) U/L Alkaline Phosphatase 60 (45-117) U/L Total Protein 6.9 (6.4-8.2) gm/dl Albumin 3.8 (3.4-5.0) gm/dl Globulin 3.1 (2.5-4.0) gm/dl Albumin/Globulin Ratio 1.2 (0.9-2) COVID-19 Eval Order CovFluRsv at [facility] SARS-CoV-2 (PCR) (Negative) Influenza Type A (PCR) (Neg) Influenza Type B (PCR) (Neg) RSV (RT-PCR) (Neg) Blood Type Antibody Screen 10/05/20 10/05/20 10/05/20 Range/Units 15:03 16:25 16:25 WBC (4.8-10.8) K/uL RBC (4.2-5.4) M/uL Hgb (12.0-16.0) g/dL Hct (37-47) % MCV (80-100) fL MCH (25-34) pg MCHC (32-36) g/dL RDW Std Deviation (36.4-46.3) fL RDW Coeff of Aly (11.5-14.5) % Plt Count (130-400) K/uL MPV (7.4-10.4) fL Immature Gran % (Auto) % Neut % (Auto) % Lymph % (Auto) % Brown % (Auto) % Eos % (Auto) % Baso % (Auto) % Neut # (Auto) (1.4-6.5) K/uL Lymph # (Auto) (1.2-3.4) K/uL Brown # (Auto) (0.11-0.59) K/uL Eos # (Auto) (0-0.5) K/uL Baso # (Auto) (0-0.2) K/uL Immature Gran # (Auto) (0.00-0.02) K/uL Sodium (136-145) mmol/L Potassium (3.5-5.1) mmol/L Chloride (98-107) mmol/L Carbon Dioxide (21-32) mmol/L Anion Gap (3-11) BUN (7-18) mg/dl Creatinine (0.6-1.2) mg/dl Est Cr Clr Drug Dosing ml/min Est GFR ( Amer) Est GFR (Non-Af Amer) BUN/Creatinine Ratio (10-20) Glucose (70-99) mg/dl Calcium (8.5-10.1) mg/dl Total Bilirubin (0.2-1) mg/dl AST (15-37) U/L ALT (12-78) U/L Alkaline Phosphatase (45-117) U/L Total Protein (6.4-8.2) gm/dl Albumin (3.4-5.0) gm/dl Globulin (2.5-4.0) gm/dl Albumin/Globulin Ratio (0.9-2) COVID-19 Eval Order SARS-CoV-2 (PCR) NEGATIVE (Negative) Influenza Type A (PCR) Negative (Neg) Influenza Type B (PCR) Negative (Neg) RSV (RT-PCR) Negative (Neg) Blood Type O Positive Cancelled Antibody Screen NEGATIVE Cancelled Imaging Data Attestation: I personally reviewed and interpreted this imaging study as follows: Radiologist's Impression: Wrist X-Ray 10/05/20 14:02 XR wrist RT 2V CLINICAL HISTORY: right wrist injury, deformity COMPARISON: None FINDINGS: There is a markedly displaced, comminuted distal right radial fracture with intra-articular extension. Multiple bone fragments are present. There is dorsal tilt of the distal component. There is also a displaced fracture of the ulnar styloid. No carpal bone fracture is present. Wrist soft tissue swelling is present. Note is made of multiple locules of gas within the forearm and wrist. This could be due to a displaced fracture fragment along the palmar aspect of the wrist. IMPRESSION: 1. Markedly displaced, comminuted distal right radial fracture with multiple locules of soft tissue gas suggestive of an open fracture. 2. Displaced fracture of the ulnar styloid. ACT 112: Negative or not required by law. Electronically signed by: Saturnino Thrasher M.D. 10/05/2020 2:32 PM Elbow X-Ray 10/05/20 14:04 XR elbow RT 2V, XR forearm RT 2V HISTORY: 80 years-old Female right arm injury acute pain of the right elbow and forearm status post trauma COMPARISON: Right wrist radiographs of same day TECHNIQUE: 2 views of the right forearm and 2 views of the right elbow FINDINGS: ELBOW: Demineralized appearance of the bones. Mild marginal spurring of the elbow. No acute fracture or dislocation. No opaque foreign body. FOREARM: Demineralized appearance of the bones. There is an acute comminuted, displaced, angulated and impacted fracture of the distal radius with fracture components approximating the volar skin surface. Subcutaneous emphysema deep tissue air the forearm suggests open fracture component. Acute mildly displaced fracture of the ulnar styloid. IMPRESSION: 1. Acute distal radial fracture with suggested open component. 2. No acute fracture of the right elbow or proximal forearm. ACT 112: Negative or not required by law. The above report was generated using voice recognition software. It may contain grammatical, syntax or spelling errors. Electronically signed by: Kin Ayala M.D. 10/05/2020 2:34 PM Forearm X-Ray 10/05/20 14:04 XR elbow RT 2V, XR forearm RT 2V HISTORY: 80 years-old Female right arm injury acute pain of the right elbow and forearm status post trauma COMPARISON: Right wrist radiographs of same day TECHNIQUE: 2 views of the right forearm and 2 views of the right elbow FINDINGS: ELBOW: Demineralized appearance of the bones. Mild marginal spurring of the elbow. No acute fracture or dislocation. No opaque foreign body. FOREARM: Demineralized appearance of the bones. There is an acute comminuted, displaced, angulated and impacted fracture of the distal radius with fracture components approximating the volar skin surface. Subcutaneous emphysema deep tissue air the forearm suggests open fracture component. Acute mildly displaced fracture of the ulnar styloid. IMPRESSION: 1. Acute distal radial fracture with suggested open component. 2. No acute fracture of the right elbow or proximal forearm. ACT 112: Negative or not required by law. The above report was generated using voice recognition software. It may contain grammatical, syntax or spelling errors. Electronically signed by: Kin Ayala M.D. 10/05/2020 2:34 PM MDM Narrative This patient is a 80-year-old female who presents to the emergency department for evaluation of a right wrist injury. Further evaluation reveals an open fracture of the right wrist with significant displacement and angulation. Patient was given a tetanus vaccine, IV Ancef and IV pain medication. Dressing and splint were applied. Orthopedics was consulted and did come to the ER to evaluate the patient. They elected to take the patient for operative management of the fracture. Covid testing performed was negative. Impression & Plan Open fracture of right radius, Fracture of distal end of right ulna Discharge Plan Visit Data Chief Complaint: Wrist Pain Stated Complaint: RIGHT WRIST PAIN ED Provider: Rashid Montgomery ED Midlevel Provider: Sandie Clement Discharge Problem: Open fracture of right radius, Fracture of distal end of right ulna Patient Disposition: Still a Patient Discharge Instructions Interventions: ED Discharge Assessment Last Done: 10/05/20 16:53 Discharge Problem: Open fracture of right radius Qualifiers: Encounter type: initial encounter Radius location: distal
--- NOTE | 2020-10-05 14:30 | Emergency Department Note ---
ED Visit Note I have seen and examined this patient with Sandie Perez and generally agree with the treatment plan as discussed. . : Open fracture of right radius Qualifiers: Encounter type: initial encounter Radius location: distal
--- NOTE | 2020-10-05 14:33 | XRay Report ---
XR wrist RT 2V CLINICAL HISTORY: right wrist injury, deformity COMPARISON: None FINDINGS: There is a markedly displaced, comminuted distal right radial fracture with intra-articula r extension. Multiple bone fragments are present. There is dorsal tilt of the distal component. There is also a displaced fracture of the ulnar styloid. No carpal bone fracture is present. Wrist soft ti ssue swelling is present. Note is made of multiple locules of gas within the forearm and wrist. This could be due to a displaced fracture fragment along the palmar aspect of the wrist. IMPRESSION: 1. Markedly displaced, comminuted distal right radial fracture with multiple locules of soft tissue g as suggestive of an open fracture. 2. Displaced fracture of the ulnar styloid. ACT 112: Negative or not required by law. Electronically signed by: Saturnino Thrasher M.D. 10/05/2020 2:32 PM
--- NOTE | 2020-10-05 14:36 | XRay Report ---
XR elbow RT 2V, XR forearm RT 2V HISTORY: 80 years-old Female right arm injury acute pain of the right elbow and forearm status post trauma COMPARISON: Right wrist radiographs of same day TECHNIQUE: 2 views of the right forearm and 2 views of the right elbow FINDINGS: ELBOW: Demineralized appearance of the bones. Mild marginal spurring of the elbow. No acute fracture or disl ocation. No opaque foreign body. FOREARM: Demineralized appearance of the bones. There is an acute comminuted, displaced, angulated and impacte d fracture of the distal radius with fracture components approximating the volar skin surface. Subcut aneous emphysema deep tissue air the forearm suggests open fracture component. Acute mildly displaced fracture of the ulnar styloid. IMPRESSION: 1. Acute distal radial fracture with suggested open component. 2. No acute fracture of the right elbow or proximal forearm. ACT 112: Negative or not required by law. The above report was generated using voice recognition software. It may contain grammatical, syntax o r spelling errors. Electronically signed by: Kin Ayala M.D. 10/05/2020 2:34 PM
[2020-10-05] MEDS ORDERED: ONDANSETRON INJ 2 MG/ML 2 ML VIAL IV STA (15:17)
[2020-10-05] MEDS ORDERED: MoRPHine SULFATE 4 MG/ML 1 ML CARP\\VIAL IV STA (15:17)
[2020-10-05 15:49] LABS: Influenza A virus by PCR Negative (Neg); Influenza B virus by PCR Negative (Neg); RSV by PCR Negative (Neg); SARS CoV2 RNA(COVID-19) InHosp NEGATIVE (Negative)
[2020-10-05] MEDS ORDERED: BUPIVACAINE 0.5 % 5 MG/1 ML MPF 30ML VIAL ONE (16:11)
--- NOTE | 2020-10-05 16:36 | History & Physical Report ---
Date of Service October 05, 2020 Assessment & Plan Admission and Anticipated Discharge Date Admission Date: Procedure: Open reduction internal fixation versus closed reduction external fixation of open right distal radius fracture with irrigation and debridement. Plan: Discussed options with the patient in the emergency department today and she requests to have surgical intervention as soon as possible. OR was contacted and room was booked for the surgical procedure stated above. Dr. Noah Gillis will be the attending physician. Risks and complications of the procedure were discussed with the patient. These will again be reviewed with the patient by Dr. Gillis and informed consent will be signed with him present. Patient will most likely be admitted for overnight stay for pain control. We will obtain a set of x-rays in the recovery room following the procedure. History of Present Illness Chief Complaint: Open right distal radius fracture Primary Care Provider: Marcin Noel MD This 80-year-old female was seen in the emergency department this afternoon. Patient states that she was walking in [facility] earlier today and tripped on a rock causing her to fall on her outstretched right upper extremity. Patient states that she had an obvious deformity of her wrist and they proceeded to the emergency department for evaluation. Patient does not think that she struck her head she states that most of her pain is in her wrist. She is unable to move the wrists since the injury. She states she is able to move her fingers. She denies numbness or tingling in her right hand. She states she seems to have full movement of her elbow. Currently she denies chest pain, raoul rtness of breath, fever, chills, sweats, lethargy or weakness. Patient states that she would like to have this fracture fixed as soon as possible. Allergies Allergy/AdvReac Type Severity Reaction Status Date / Time No Known Drug Allergies Allergy Unknown . Verified 10/05/20 14:57 Home Medications Medication Instructions Recorded Confirmed Type levothyroxine 112 mcg tablet 112 mcg PO DAILY #90 tab 03/13/19 10/05/20 History alendronate 70 mg PO WK 10/05/20 10/05/20 History lithium carbonate 150 mg PO DAILY 10/05/20 10/05/20 History lithium carbonate 300 mg PO DAILY 10/05/20 10/05/20 History Past Med/Surg History Medical History Cardiac pacemaker Hypothyroidism Social History Smoking Status: Never smoker Feels Safe at Home: Yes Review of Systems All systems reviewed & are unremarkable except as noted in Subjective Physical Exam Constitutional: well developed, well nourished, + thin and healthy appearing Eyes: PERRL, conjunctivae normal, anicteric sclerae EOM intact bilaterally Respiratory: normal respiratory effort, lungs clear to auscultation Auscultation: lungs clear to auscultation bilaterally Cardiovascular: RRR, no murmur, no edema Extremities: normal capillary refill Gastrointestinal (Abdomen): normal bowel sounds, soft, nontender, no hepatosplenomegaly Musculoskeletal: Right wrist: Splint in place. There is visible deformity about the distal radius. Patient has exquisite tenderness to palpation over the dorsum of the wrist. She has full range of motion her elbow. Appropriate dexterity of her fingers. She is able to depict light sensation to touch over the pads of all digits. Capillary refill is less than 2 seconds. Patient is neurovascularly intact in the right upper extremity. Skin: Per nursing there is a small 1 cm laceration over the dorsal surface of the wrist with slight venous bleeding. I was not able to visualize this laceration due to the placement of the splint. Neurologic: CN's II-XI intact bilaterally Psychiatric: A+Ox3, euthymic affect Results & Data ([facility]) Vital Signs (Past 12 Hours) Vital Signs Temp Pulse Pulse Resp BP BP Pulse Ox 10/05/20 16:04 64 16 118/69 97 10/05/20 14:46 61 14 118/68 98 10/05/20 13:51 36.9 C 76 20 134/71 99 Laboratory Results Lab Results 10/05/20 10/05/20 Range/Units 15:03 15:03 COVID-19 Eval Order [facility] at [facility] SARS-CoV-2 (PCR) NEGATIVE (Negative) Influenza Type A (PCR) Negative (Neg) Influenza Type B (PCR) Negative (Neg) RSV (RT-PCR) Negative (Neg)
[2020-10-05] MEDS ORDERED: fentaNYL citrate 100 MCG/2 ML VIAL ONE ×2 (16:43→18:39)
[2020-10-05] MEDS ORDERED: ONDANSETRON INJ 2 MG/ML 2 ML VIAL ONE (16:43)
[2020-10-05] MEDS ORDERED: DEXAMETHASONE SOD INJ 4 MG/ML VIAL ONE (16:43)
[2020-10-05] MEDS ORDERED: MIDAZOLAM HCL 1 MG/ML 2ML VIAL ONE (16:43)
[2020-10-05] MEDS ORDERED: LIDOCAINE HCL 2% 2 ML VIAL/AMP(20MG/ML) INFIL ONE (16:43)
[2020-10-05] MEDS ORDERED: PROPOFOL IV EMULSION 10 MG/ML 20 ML VIAL IV ONE (16:43)
[2020-10-05 16:44] LABS: Albumin Level 3.8 gm/dl (3.4-5.0); BUN Creatinine Ratio 26.4 (10-20); Calcium 10.3 mg/dl (8.5-10.1); Creatinine Clr Calc Pharmacy 36.6 ml/min; Est GFR (African American) 51.9; Est GFR (Non-African American) 44.7; Potassium 4.7 mmol/L (3.5-5.1)
[2020-10-05 16:47] LABS: Albumin Globulin Ratio 1.2 (0.9-2); Bilirubin,Total 0.3 mg/dl (0.2-1); Globulin 3.1 gm/dl (2.5-4.0); Total Protein 6.9 gm/dl (6.4-8.2)
--- NOTE | 2020-10-05 17:19 | Orthopedic Consultation ---
Date of Consultation October 05, 2020 History of Present Illness History of Present Illness Sonia is 80. She was walking and fell injuring her right dominant wrist earlier today. She was brought to the ER where she was diagnosed with an open distal radius fracture. She has no prior history of wrist injuries. She denies any other injuries and has no tingling or numbness. Her past medical history significant for osteoporosis hypothyroidism and cardiac arrhythmia status post pacemaker. In terms of review of systems she is not had cancer diabetes lung disease heart attack stroke blood clots embolisms bleeding problems. She is not allergic to anything including metals. She has not had MRSA. Other than her pacemaker she has not had surgery. On examination there is a 1 cm wound on the volar central aspect of the wrist which is bleeding. She has a grossly deformed wrist. Capillary refill less than 2 seconds. She has 4 out of 5 palmar abduction of the thumb. 4 out of 5 finger abduction. 4-5 thumb extension. Radial pulses 1+. There is tenderness and deformity of the wrist. Finger movement is limited. There is no tenderness of the forearm elbow humerus or shoulder. Radiographs of the elbow forearm and wrist reviewed. There is a comminuted and displaced fracture of the distal radius otherwise the forearm and elbow are negative. Reports noted. She has a a grade 1 open fracture of her right distal radius. Operative treatment is recommended with irrigation debridement and fixation. This will likely be an external fixator due to the comminuted nature of this injury. She will be hospitalized afterwards for intravenous antibiotics. She is educated about the treatment options we talked about risks benefits rehab and recovery and she agreed to proceed. She has gotten tetanus. Ancef and splint. Her labs done so far are acceptable and she has a CBC type and screen chest x-ray EKG pending. Her Covid test is negative. Informed consent was obtained. Allergies Allergy/AdvReac Type Severity Reaction Status Date / Time No Known Drug Allergies Allergy Unknown . Verified 10/05/20 14:57 Home Medications Medication Instructions Recorded Confirmed Type levothyroxine 112 mcg tablet 112 mcg PO DAILY #90 tab 03/13/19 10/05/20 History alendronate 70 mg PO WK 10/05/20 10/05/20 History lithium carbonate 150 mg PO DAILY 10/05/20 10/05/20 History lithium carbonate 300 mg PO DAILY 10/05/20 10/05/20 History Patient History Medical History Cardiac pacemaker Hypothyroidism Social History Smoking Status: Never smoker Feels Safe at Home: Yes Results & Data ([facility] [place]) Vital Signs (Past 12 Hours) Vital Signs Temp Pulse Pulse Resp BP BP Pulse Ox 10/05/20 16:04 64 16 118/69 97 10/05/20 14:46 61 14 118/68 98 10/05/20 13:51 36.9 C 76 20 134/71 99
--- NOTE | 2020-10-05 17:29 | XRay Report ---
XR chest 1V portable CLINICAL HISTORY: preop COMPARISON STUDY: Chest radiograph December 30, 2009. FINDINGS: Lung volumes are normal. Lungs are clear. There is no pneumothorax or pleural effusion. Car diac size is normal. Mediastinal contours are normal. There is no evidence for pulmonary edema. Left subclavian pacer remains in place. IMPRESSION: No acute cardiopulmonary findings. ACT 112: Negative or not required by law. Electronically signed by: Saturnino Thrasher M.D. 10/05/2020 5:27 PM
[2020-10-05] MEDS ORDERED: LACTATED RINGER'S 1,000 ML IV SCH (17:30)
[2020-10-05] MEDS ORDERED: ceFAZolin 1000MG 1,000 MG/7.5 ML SYR IV SCH (17:30)
--- NOTE | 2020-10-05 17:36 | Anesthesiology Consultation ---
Date of Service October 05, 2020 Assessment & Plan Chart Review Chart Review: Acceptable Risk for Surgery Consults Requested none History Surgery Operation Date: 10/05/20 08:50 Proposed Procedures p Right Wrist Open Reduction Internal Fixation Versus - Noah Gillis MD s External Fixator Application - Noah Gillis MD Height/Weight Height: 5 ft 6 in Weight: 59 kg Allergies Allergy/AdvReac Type Severity Reaction Status Date / Time No Known Drug Allergies Allergy Unknown . Verified 10/05/20 14:57 Medications Home Medications Medication Instructions Recorded Confirmed Last Taken levothyroxine 112 mcg tablet 112 mcg PO DAILY #90 tab 03/13/19 10/05/20 Unknown alendronate 70 mg PO WK 10/05/20 10/05/20 Unknown lithium carbonate 150 mg PO DAILY 10/05/20 10/05/20 Unknown lithium carbonate 300 mg PO DAILY 10/05/20 10/05/20 Unknown NPO Date Last Intake of Fluids: 10/05/20 Time Last Intake of Fluids: 11:30 Date Last Intake of Solids: 10/05/20 Time Last Intake of Solids: 11:30 Past Medical History Medical History Cardiac pacemaker Hypothyroidism Social History Smoking Status: Never smoker Hx Alcohol Use: No Hx Substance Use: No Physical Exam Vital Signs Last Vital Signs Temp 36.6 C 10/05/20 17:18 Pulse 64 10/05/20 17:18 Resp 22 10/05/20 17:18 BP 118/68 10/05/20 17:18 Pulse Ox 95 10/05/20 17:18 Testing Laboratory Results 10/05/20 14:15
[2020-10-05] MEDS ORDERED: LIDOCAINE HCL 1% 20 ML VIAL ONE (17:48)
[2020-10-05] MEDS ORDERED: LARYING-O-JET KIT (LTA) ONE (18:14)
[2020-10-05] MEDS ORDERED: METOCLOPRAMIDE HCL INJ 5 MG/ML 2 ML VIAL IV PRN ×2 (18:14→20:29)
[2020-10-05] MEDS ORDERED: ONDANSETRON INJ 2 MG/ML 2 ML VIAL IV PRN ×2 (18:14→20:29)
[2020-10-05] MEDS ORDERED: HYDROmorphone INJ 2 MG/ML SYR/VIAL IV PRN (18:14)
[2020-10-05] MEDS ORDERED: fentaNYL citrate 100 MCG/2 ML VIAL IV PRN (18:14)
[2020-10-05] MEDS ORDERED: PROMETHAZINE HCL 12.5 MG in SODIUM CHLORIDE 0.9% 50 ML IV PRN (18:14)
[2020-10-05] MEDS ORDERED: GLYCOPYRROLATE 0.2 MG/ML VIAL ONE (18:14)
[2020-10-05] MEDS ORDERED: ePHEDrine sulfate 50 MG/ML AMP IV PRN (18:14)
[2020-10-05] MEDS ORDERED: ATROPINE SULFATE 0.1 MG/ML 10ML SYR IV PRN (18:14)
[2020-10-05] MEDS ORDERED: ROCURONIUM BROMIDE 10 MG/ML 5 ML VIAL IV ONE (18:14)
[2020-10-05] MEDS ORDERED: NEOSTIGMINE METHYLSULFATE 5 MG/5 ML SYR ONE (18:14)
[2020-10-05 18:26] LABS: Basophils # (auto) 0.02 K/uL (0-0.2); Basophils % (auto) 0.2 %; Eosinophils # (auto) 0.29 K/uL (0-0.5); Eosinophils % (auto) 3.4 %; Hematocrit (blood only) 38.3 % (37-47); Hemoglobin 12.3 g/dL (12.0-16.0); Immature Granulocytes # (auto) 0.01 K/uL (0.00-0.02); Immature Granulocytes % (auto) 0.1 %; Lymphocytes # (auto) 2.15 K/uL (1.2-3.4); Lymphocytes % (auto) 25.3 %; Mean Corpuscular Hgb Conc 32.1 g/dL (32-36); Mean Corpuscular Volume 93.4 fL (80-100); Monocytes % (auto) 8.2 %; Neutrophils # (auto) 5.34 K/uL (1.4-6.5); Neutrophils % (auto) 62.8 %; Platelet Count 242 K/uL (130-400); RDW Coefficient of Variation 14.2 % (11.5-14.5); White Blood Count 8.51 K/uL (4.8-10.8)
[2020-10-05] MEDS ORDERED: ePHEDrine sulfate 50 MG/ML SYR ONE (18:34)
[2020-10-05] MEDS ORDERED: HYDROmorphone INJ 0.5 MG/0.5 ML SYR IV PRN (20:29)
[2020-10-05] MEDS ORDERED: ALUMINUM/MAGNESIUM SUSP 30 ML UDC PO PRN (20:29)
[2020-10-05] MEDS ORDERED: bisacodyL 10 MG SUPP PR PRN (20:29)
[2020-10-05] MEDS ORDERED: traMADol HCL 50 MG TABLET PO PRN (20:29)
[2020-10-05] MEDS ORDERED: NALOXONE HCL 0.4 MG/1 ML VIAL/CARP IV PRN ×2 (20:29)
[2020-10-05] MEDS ORDERED: MAGNESIUM HYDROXIDE SUSP 30 ML UDC PO PRN (20:29)
[2020-10-05] MEDS ORDERED: diphenhydrAMINE 50 MG/ML VIAL IV PRN (20:29)
--- NOTE | 2020-10-05 20:29 | Operative Report ---
Post Operative Report Pre & Post Diagnosis Operation Date: 10/05/20 08:50 Pre-Op Diagnosis: Grade 1 Open Fracture of Right Distal Radius and Ulna Post-Op Diagnosis: Grade 1 Open Fracture of Right Distal Radius and Ulna I identified the patient and participated in the time-out.: Yes Procedure Operation Date: 10/05/20 08:50 Actual Procedures p Right Wrist External Fixator Application, Percutaneous Pinning, Irrigation and Debridement(Right) - Noah Gillis MD Surgeon Noah Gillis MD Certified Dietary Manager Alen Rogers MD; Mary Jane Henao PA-C Estimated Blood Loss 15 Findings Consistent with Post-Op Diagnosis Specimens none Complications none Disposition Accompanied Patient To Recovery: No Disposition: Surgical ICU Description of Procedure I was present during the entire case assisting with positioning, prepping, draping, wound retraction, wound closure and dressing application. Fellow also present. I served as an extra set of hands during the case. Please see Dr. Gillis procedure note for specifics of the case. I attest to the content of the Intraoperative Record and any orders documented therein. Any exceptions are noted below.
--- NOTE | 2020-10-05 20:29 | Operative Report ---
Post Operative Report Pre & Post Diagnosis Operation Date: 10/05/20 08:50 Pre-Op Diagnosis: Grade 1 Open Fracture of Right Distal Radius and Ulna Post-Op Diagnosis: Grade 1 Open Fracture of Right Distal Radius and Ulna I identified the patient and participated in the time-out.: Yes Procedure Operation Date: 10/05/20 08:50 Actual Procedures p Right Wrist External Fixator Application, Percutaneous Pinning, Irrigation and Debridement(Right) - Noah Gillis MD Surgeon Noah Gillis MD Defensive Driving Instructor Alen Salazar Estimated Blood Loss 15 Findings Consistent with Post-Op Diagnosis Specimens None Drains None Anesthesia Type General Complications none Disposition Accompanied Patient To Recovery: No Disposition: Recovery Room Indications Patient 80. She fell and sustained a grade 1 open fracture of her right distal radius. She is taken to the operating room for irrigation debridement and surgical stabilization. Description of Procedure Informed consent obtained. Patient identified. She identified the operative site as the right wrist. I marked with my initials. A preoperative surgical timeout was performed. A preop dose of IV antibiotics was given. She received tetanus as well as antibiotics promptly upon diagnosis of the open fracture. She was positioned supine on the operating room table with a tourniquet on the right arm and the right arm on a hand table. The limb was prescrubbed and then prepped with Betadine and draped in usual sterile fashion. DVT prophylaxis with early mobility postoperatively. She will also be continued on a 24-hour 3 dose course of intravenous antibiotics for her open fracture. Prior to the start of the procedure and after the timeout gentle longitudinal traction was performed resulting in good mosque of alignment in both the AP and lateral planes as assessed fluoroscopically. The fracture was grossly unstable. There was a tr ansverse 1 cm laceration just to the radial border of the ulna located several centimeters proximal to the distal wrist flexion crease. Fluoroscopic guidance was utilized throughout the procedure. Local anesthetic was injected into the surgical incisions at the conclusion of the operation. The limb was exsanguinated with gravity. The tourniquet inflated to 225 mmHg. A 5 to 6 cm incision was made for an FCR approach to the distal radius. The skin was incised followed by the fascia of the volar and dorsal aspects of the FCU. It was retracted radialward. It was immediately noted that the flexor pollicis longus muscle was encountered with some trauma. It was retracted ulnarward and directly beneath it was disruption of the pronator quadratus with fracture. No fracture stripping was performed. The fracture was identified. Longitudinal traction was applied. Soft tissue was teased out of the fracture defect and then 2 L of saline bulb syringe irrigation were performed. I then op ened up the ulnar laceration 1 cm proximal and distal. This went down to the surface of the ulna but communicated with the distal radius. This was likewise irrigated. At the conclusion the procedure meticulous hemostasis was performed and these 2 incisions were loosely approximated with 4-0 and 3-0 nylon. An external fixator was applied. An incision was made over the base of the second metacarpal. Under direct visualization using fluoroscopic guidance 2 guide pins were inserted into the base of the second metacarpal. They were angled slightly distal to proximal. They were centered in the bone. They were adjusted for depth to be just past bicortical with a full threads of the screw. Likewise well proximal to the fracture a longitudinal incision was made over the radius. The superficial radial nerve was identified. The brachioradialis was identified its muscle was carefully split down to the level of the bone and 2 screws were inserted centrally. Position was confirmed fluoroscopically in depth adjusted as necessary. The fixator was applied with a bar dorsal. Longitudinal traction was applied with gentle manipulation which resulted in mosque of anatomic alignment on both AP and lateral views. There was substantial comminution of the fracture. Radial height was restored with slightly positive ulnar variance and minimal distraction of the carpus. The hand could be fisted. There was neutral alignment on the lateral view. This was then reinforced with 2 radial styloid 0.045 inch K wires going from dorsal to volar and volar to dorsal engaging the intact proximal cortex of the radius. An additional transverse pin was applied just beneath the subchondral bone to lock in the radius and ulnar facet fragments. Portrait Studio Photographer images were obtained. Irrigation of the surgical incision was performed. Relaxing incisions were made in the skin was closed for the fixator with 4-0 nylon. This was a Synthes small wrist external fixator. The pins were bent short outside the skin cut and Jurgan balls applied. Local anesthetic was injected into the incisions. The radial and ulnar pulses were palpable at the conclusion of the procedure with capillary refill less than 2 seconds in all of the fingers. The fracture was stable. Xeroform 4 x 4's cast padding Kerlix applied along with Pako wrap. She was awakened from anesthesia without difficulty taken to recovery stable condition. There were no specimens or complications. Counts were correct. Blood loss estimated to be 15 cc. At the conclusion of the operation spoke to patient's informed him my findings. Postop instructions were given. Plan is to admit her to the hospital for elevation wound monitoring and intravenous antibiotics. I attest to the content of the Intraoperative Record and any orders documented therein. Any exceptions are noted below.
[2020-10-05] MEDS ORDERED: SODIUM CHLORIDE 0.9% 1000ML 1,000 ML IV SCH (20:30)
--- NOTE | 2020-10-05 20:31 | Fluoroscopy Report ---
FL wrist RT 2V CLINICAL HISTORY: ORIF RIGHT WRIST COMPARISON STUDY: Right wrist radiographs performed earlier today. FLUOROSCOPY TIME: 61 seconds. FLUOROSCOPIC IMAGES: 6 FINDINGS: Fluoroscopy was provided during irrigation and debridement and percutaneous pinning with pl acement of external fixator for the distal right radial fracture. K wires fixate the fracture. Fractu re alignment has markedly improved. Ulnar styloid fracture is noted. IMPRESSION: Fluoroscopy provided during percutaneous pinning and external fixation of the distal rig ht radial fracture. ACT 112: Negative or not required by law. Electronically signed by: Saturnino Thrasher M.D. 10/05/2020 8:30 PM
[2020-10-05] MEDS: SENNA 8.6 MG TAB PO SCH (22:17)
[2020-10-05] MEDS: DOCUSATE SODIUM 100 MG CAP PO SCH (22:17)
[2020-10-05] MEDS: ACETAMINOPHEN 500 MG TAB PO SCH (22:17)
--- NOTE | 2020-10-05 22:19 | Anesthesiology Progress Note ---
Date of Service October 05, 2020 Anesthesia Post Procedure Vital Signs Vital Signs: Temp Pulse Pulse Pulse Resp BP BP 10/05/20 21:55 36.6 C 61 16 123/63 10/05/20 21:25 36.9 C 63 16 116/66 10/05/20 21:10 60 18 114/54 L 10/05/20 21:00 36.4 C L 60 17 120/52 L 10/05/20 20:50 60 18 120/53 L 10/05/20 20:40 60 17 113/50 L 10/05/20 20:33 36.4 C L 62 15 108/51 L 10/05/20 17:18 36.6 C 64 22 118/68 10/05/20 16:04 64 16 118/69 10/05/20 14:46 61 14 118/68 10/05/20 13:51 36.9 C 76 20 134/71 Pulse Ox 10/05/20 21:55 100 10/05/20 21:25 99 10/05/20 21:10 100 10/05/20 21:00 99 10/05/20 20:50 100 10/05/20 20:40 100 10/05/20 20:33 98 10/05/20 17:18 95 10/05/20 16:04 97 10/05/20 14:46 98 10/05/20 13:51 99 Pain Intensity Right Wrist: Pain Intensity: 5 Transfer of Care Handoff Completed per policy Notes Mental Status: alert / awake / arousable and participated in evaluation Patient Amnestic to Procedure: Yes Nausea / Vomiting: adequately controlled Pain: adequately controlled Airway Patency, RR, SpO2: stable & adequate BP & HR: stable & adequate Hydration State: stable & adequate Anesthetic Complications: no major complications apparent
[2020-10-06] MEDS: ceFAZolin 1000MG 1,000 MG/7.5 ML SYR IV SCH ×3 (01:38→18:26)
[2020-10-06] MEDS: ACETAMINOPHEN 500 MG TAB PO SCH ×3 (05:35→21:09)
[2020-10-06] MEDS: LEVOTHYROXINE SODIUM 112 MCG TABLET PO SCH (05:35)
[2020-10-06 07:18] LABS: Hematocrit (blood only) 33.6 % (37-47); Hemoglobin 10.7 g/dL (12.0-16.0); Immature Granulocytes # (auto) 0.01 K/uL (0.00-0.02); Immature Granulocytes % (auto) 0.1 %; Lymphocytes # (auto) 0.79 K/uL (1.2-3.4); Lymphocytes % (auto) 9.2 %; Mean Corpuscular Hemoglobin 29.6 pg (25-34); Mean Corpuscular Hgb Conc 31.8 g/dL (32-36); Mean Corpuscular Volume 93.1 fL (80-100); Mean Platelet Volume 10.5 fL (7.4-10.4); Monocytes # (auto) 0.69 K/uL (0.11-0.59); Neutrophils # (auto) 7.11 K/uL (1.4-6.5); Neutrophils % (auto) 82.7 %; Platelet Count 187 K/uL (130-400); RDW Coefficient of Variation 14.3 % (11.5-14.5); Red Blood Count 3.61 M/uL (4.2-5.4)
[2020-10-06 07:56] LABS: BUN Creatinine Ratio 26.1 (10-20); Calcium 9.2 mg/dl (8.5-10.1); Creatinine Clr Calc Pharmacy 51.8 ml/min; Est GFR (African American) 78.9; Est GFR (Non-African American) 68.1; Potassium 4.8 mmol/L (3.5-5.1)
[2020-10-06] MEDS ORDERED: dexAMETHasone 4 MG TAB PO SCH (08:00)
[2020-10-06] MEDS: MULTIVITAMIN TAB PO SCH (08:41)
[2020-10-06] MEDS: DOCUSATE SODIUM 100 MG CAP PO SCH ×2 (08:41→21:10)
[2020-10-06] MEDS: LITHIUM CARBONATE 300 MG TAB PO SCH (08:41)
[2020-10-06] MEDS ORDERED: LITHIUM CARBONATE 300 MG TAB PO SCH (09:00)
[2020-10-06] MEDS ORDERED: ERGOCALCIFEROL 50,000 UNITS 1250 MCG CAP PO ONE (13:30)
--- NOTE | 2020-10-06 14:03 | Progress Notes ---
DATE: 10/06/2020 SUBJECTIVE: The patient is sitting in her chair. No complaints. Surgery results discussed and x-rays reviewed. OBJECTIVE: She is awake and alert and oriented. No acute distress. Her vital signs are stable. Labs today are noted. Hemoglobin 11, hematocrit 33, platelets are 187. We will need to check vitamin D level and administer vitamin D as appropriate. She has almost full extension and at least 50% composite digital flexion. There is a slight bit of numbness throughout the hand minor in nature, but she has intact median, radial and ulnar motor and sensory functions. Capillary refill is less than 2 seconds. Her strength in all areas tested is 5-/5. The external fixator is in place. IMPRESSION: She has a grade 1 open right distal radius and ulna fracture. She is status post irrigation, debridement, closed reduction, external fixation and pinning. PLAN: Work on finger range of motion, elevate and control pain. She is neurovascularly intact. She will complete a 24-hour course of IV antibiotics. We will reassess her tomorrow. DVT prophylaxis is not necessary.
--- NOTE | 2020-10-06 20:07 | Electrocardiogram Report ---
Test Reason : Blood Pressure : / mmHG Vent. Rate : 062 BPM Atrial Rate : 062 BPM P-R Int : 210 ms QRS Dur : 092 ms QT Int : 416 ms P-R-T Axes : -05 006 059 degrees QTc Int : 422 ms Atrial-paced rhythm with prolonged AV conduction Nonspecific T wave abnormality Abnormal ECG When compared with ECG of 12-JUN-2016 16:15, Nonspecific T wave abnormality has replaced inverted T waves in Anterior leads Confirmed by Price Simmons ([id number]) on 10/06/2020 8:07:13 PM Referred By: REFERRED SELF Confirmed By:Price Simmons
[2020-10-06] MEDS: SENNA 8.6 MG TAB PO SCH (21:10)
[2020-10-07] MEDS: ACETAMINOPHEN 500 MG TAB PO SCH (06:26)
[2020-10-07] MEDS: LEVOTHYROXINE SODIUM 112 MCG TABLET PO SCH (06:26)
[2020-10-07] MEDS: DOCUSATE SODIUM 100 MG CAP PO SCH (07:58)
[2020-10-07] MEDS: LITHIUM CARBONATE 300 MG TAB PO SCH (07:59)
[2020-10-07] MEDS: MULTIVITAMIN TAB PO SCH (07:59)
--- NOTE | 2020-10-07 08:53 | Orthopedic Progress Note ---
Date of Service October 07, 2020 Assessment & Plan (1) Open fracture of right radius: Doing well. Plan is to discharge home. She will follow-up next week for dressing change and physical therapy. Talked about elevating and icing. We also reviewed exercises for the fingers. If there is any problems with pain fever swelling tingling tingling numbness or any other issues please call my office or go to the emergency room. Take a stool softener if she is using a pain medication which will be provided to her. Vitamin D low. 18. Vitamin D supplementation has been given. Will need to continue this as an outpatient. Present on Admission?: Yes (2) Fracture of distal end of right ulna: Present on Admission?: Yes Admission and Anticipated Discharge Date Admission Date: October 05, 2020 Subjective No problems reported. Less pain and better feeling. Physical Exam Physical Exam: Dressing intact. Mild swelling of the fingers. Capillary refill less than 2 seconds. Sensation intact and more closer to normal in all fingers. She can perform all motor functions but has 5- out of 5 strength in all positions. Probably the strongest with median nerve and weakest with ulnar nerve but could just be related to positioning and discomfort. Everything appears to be intact. Almost full finger extension and at least 50% flexion. Results & Data ([facility]) Vital Signs (Past 12 Hours) Vital Signs Temp Pulse Resp BP Pulse Ox 10/07/20 06:54 36.6 C 63 16 124/61 100 10/06/20 23:04 36.5 C 63 16 111/59 L 96 Laboratory Results 10/06/20 Range/Units 13:50 25-OH Vitamin D Total 18.6 L (30-100) ng/ml (1) Open fracture of right radius Encounter type: initial encounter Radius location: distal
--- NOTE | 2020-10-07 09:53 | Discharge Summary ---
Date of Service October 07, 2020 Admission HPI Per Admitting Provider This 80-year-old female was seen in the emergency department this afternoon. Patient states that she was walking in [facility] earlier today and tripped on a rock causing her to fall on her outstretched right upper extremity. Patient states that she had an obvious deformity of her wrist and they proceeded to the emergency department for evaluation. Patient does not think that she struck her head she states that most of her pain is in her wrist. She is unable to move the wrists since the injury. She states she is able to move her fingers. She denies numbness or tingling in her right hand. She states she seems to have full movement of her elbow. Currently she denies chest pain, shortness of breath, fever, chills, sweats, lethargy or weakness. Patient states that she would like to have this fracture fixed as soon as possible. Discharge Data Consultations 10/05/20 16:44 Consult Hospitalist Stat Procedures Performed Operation Date: 10/05/20 08:50 Actual Procedures p Right Wrist External Fixator Application, Percutaneous Pinning, Irrigation and Debridement(Right) - Noah Gillis MD Hospital Course (1) Open fracture of right radius: Patient came into the emergency room after injuring her right wrist. She was found to have an open right distal radius and ulna fracture, grade 1. X- rays were obtained. She was referred to orthopedics. She was seen by Dr. Gillis in the emergency room and urgent surgical intervention was recommended due to her open fracture. She was made NPO. She was taken to the operating room on October 05, 2020 to undergo an irrigation and debridement, closed reduction percutaneous pinning, external fixation of her right distal radius and ulna fracture. Her surgery was performed with general anesthesia. She was given IV Ancef for surgical prophylaxis and this was also continued for 48 hours after her surgery due to the open fracture. She tolerated the procedure well without any intraoperative complications. Postoperatively she was given a regular diet. She was allowed out of bed, ambulate as tolerated. She was instructed to be nonweightbearing of her right upper extremity. Her regular home medications were continued. She was also placed on vitamin D supplementation. Her pain was controlled with oral Tylenol and tramadol. Encouraged ice and elevation as well as finger range of motion. Orders for physical therapy were placed and she was seen and evaluated by them. She was also seen by case management for disposition needs. She does live with her and feels that she is able to go home at the time of her discharge. She was given AV impulse boots and ALEAH stockings, as well as early mobilization for DVT prophylaxis. She tolerated regular diet. Her vital signs remained stable during her stay. She did not develop any postoperative nausea, vomiting, chest pain or shortness of breath. Her pain was well controlled. Her dressings from surgery remained intact at the time of discharge. She will follow up with outpatient physical therapy early next week and with Dr. Gillis approximately 10 to 14 days after her procedure. All questions were answered. Discharge instructions were provided. She was discharged to her home in stable condition on October 07, 2020. (2) Fracture of distal end of right ulna: Please see above, treatment is the same as indicated above. Discharge Instructions DIET: * Resume previous diet. MEDICATIONS: * Please take your prescriptions as instructed at your pre-op appointment and/or see medication discharge instructions listed above. * If concerns develop, call your physician's office at . SPECIAL CARE INSTRUCTIONS: * Ice to right wrist as needed for pain/swelling. * elevate right upper extremity to prevent pain and swelling. * do full range of motion fingers right hand. Also do full ROM of right elbow. * No heavy pushing, pulling or lifting with right arm. * Keep dressing clean, dry, intact. Do not remove, if you have issues with the dressings, please call Dr. Gillis's office. * Your dressings with get changed at your first physical therapy appointment in our office. See follow up appointments. * Sling right arm for comfort. * Your surgical extremity may be discolored due to prepping agents used on the skin. A bluish-green tint is a normal variant and should not cause alarm. Call your doctor at [phone] if: * Temperature above 101 degrees * Pain not relieved by pain medicine ordered * There is increased drainage or redness from any incision * You have any unanswered questions, problems or concerns. FOLLOW UP VISIT: * If not already scheduled, please call the office at to schedule a follow-up appointment.
[2020-10-08] MEDS ORDERED: ALENDRONATE SODIUM 70 MG TAB PO SCH (06:30)
== END 2020-10-07 11:03 | disposition home or self-care (01) | DRG 512 ==
LOC: ED 13:47 → 3W 16:53

== ENCOUNTER 2024-03-07 11:01 | Inpatient (IN) ==
[2024-03-07] MEDS: HYDROmorphone INJ 0.5 MG/0.5 ML SYR ONE (11:18)
[2024-03-07] MEDS: HYDROmorphone INJ 0.5 MG/0.5 ML SYR IV STA ×2 (11:18→13:03)
--- NOTE | 2024-03-07 11:31 | Emergency Department Note ---
Impression & Plan Closed hip fracture, Fracture of humeral head ED Provider Note NAME: YAMILET GEE AGE: 84 SEX: F : 1940 ARRIVES VIA: Ambulance INFORMANT: Patient, ED PROVIDER(S): Lucila Granger MD CHIEF COMPLAINT: Fall, hip pain HPI: This is a an 84-year-old female senting for hip pain. Patient notes that she fell today after her fell on top of her. She notes she struck the right side of her body against the ground. She notes no head strike, neck pain. She notes associating right hip pain. She notes no blood thinners. ROS: See above HPI for pertinent positives & negatives. A total of 10 systems reviewed and were otherwise negative. PAST MEDICAL HISTORY: See Below PAST SURGICAL HISTORY: See Below FAMILY HISTORY: See Below SOCIAL HISTORY: See Below HOME MEDICATIONS: See Below ALLERGIES: See Below VITALS: See Below PHYSICAL EXAMINATION: General: resting comfortably in no acute distress Head: Normocephalic and atraumatic Eyes: Normal inspection, extraocular muscles intact Ear, nose, throat: Normal external exam Neck: Normal range of motion Respiratory: lungs clear to auscultation bilaterally Cardiovascular: Regular rate/rhythm, no murmur GI: soft, nontender, no guarding or rebound Extremities: Shortened, externally rotated right hip, deformity to the right hip, 2+ pulses Neuro: The patient awake and alert, appropriately conversive, no focal deficits, symmetric faces Skin: Warm, dry, and intact MEDICAL DECISION MAKING: This is a 84-year-old male presenting for hip pain. Patient likely has a hip fracture clinically. Will do x-ray to confirm. With high suspicion, with your chest x-ray, EKG and basic blood work for preop planning. -Hip x-ray as independently interpreted by read reveals an intertrochanteric hip fracture on the right -Ordered for preop clearance. On this x-ray there appears to be a humeral head fracture as well. Dedicated film ordered. -Chest Xray independently interpreted by me showing a humeral head fracture, no pneumothorax, focal opacity, or pleural effusions. -Humeral x-ray as independently interpreted by me reveals right humeral neck fracture -Discussed with Dr. Wiseman, stated surgery on-call, who recommends admission, pain control, preop clearance and admission to medicine -Care discussed with hospitalist service for admission Differential diagnosis: Hip fracture, hip dislocation, bruise, intracranial hemorrhage, shoulder fracture ER treatment provided: See below Independent History obtained from: Diagnostics interpreted by me: ECG: ECG independently interpreted by me with atrial paced rhythm with a rate of 61, normal CT, normal QRS, normal QTc, no ST segment elevations consistent with STEMI criteria Cardiac Monitoring: An order was placed for continuous cardiac monitoring. The monitor shows a rate of 84 with sinus rhythm. Laboratory studies: As stated above and show below. Imaging studies: See below. Past Med/Surg History Problem List (Updated 03/08/24 @ 19:53 by Lucila Granger MD) Fracture of humeral head (Acute) Closed hip fracture (Acute) Leukocytosis Closed fracture of right proximal humerus Intertrochanteric fracture of right femur Dehydration Vasomotor rhinitis Chronic kidney disease (CKD) stage G3a/A1, moderately decreased glomerular filtration rate (GFR) between 45-59 mL/min/1.73 square meter and albuminuria creatinine ratio less than 30 mg/g COVID Hand pain, right Abnormality of gait due to impairment of balance Wrist pain, right Rhinorrhea Chronic rhinitis Carpal tunnel syndrome of right wrist Post herpetic neuralgia Bipolar disorder in full remission Osteoporosis Hypothyroidism Fall Open fracture of right radius (Acute) Fracture of distal end of right ulna (Acute) Cardiac pacemaker Sinus node dysfunction Medical History Bipolar I disorder, single manic episode Arthritis Internal hemorrhoids Diverticulosis Surgical History History of breast lump removal H/O wrist surgery R wrist Family History Mother Breast cancer Denies family history of Ovarian cancer Prostate cancer Diabetes Myocardial infarction Colorectal cancer Social History Smoking Status: Never smoker Second Hand Exposure: No; Do You Dip or Chew Tobacco: No; Hx Alcohol Use: No Hx Substance Use: No Preferred Language: Hebrew Communication Ability: Effective Visual Impairment: Limited Hearing Ability: Normal 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 Room 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 Required: No Beliefs That Will Affect Care: None marital status: Current Living Situation: Spouse 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 How many Children do You have: 1 How many Children do You have Comment: adopted child Other Information That Helps Us Care for You: No Feels Safe at Home: Yes Childhood Exposure to Second-Hand Smoke: No Diet: regular Diet Comment: very little meat caffeine: Yes during the past year weight has: remained stable Dental Care, Regularly: Yes Physical Activity Frequency: 3-4 Times per Week Physical Activity Frequency Comment: walking Seatbelt Use: always Sunscreen Use: Yes Assistive Devices: Glasses Allergies Allergies Allergy/AdvReac Type Severity Reaction Status Date / Time No Known Drug Allergies Allergy Unknown . Verified 01/27/24 10:18 Home Meds Home Medications Medication Instructions Recorded Confirmed Nasal Standard 1 spray intranasal DIRECTED 03/07/24 03/07/24 ergocalciferol (vitamin D2) 1,250 1,250 mcg PO UD 03/07/24 03/07/24 mcg (50,000 unit) capsule (Vitamin D2) gabapentin 100 mg capsule 200 mg PO UD 03/07/24 03/07/24 levothyroxine 100 mcg tablet 100 mcg PO UD 03/07/24 03/07/24 lithium carbonate 150 mg capsule 150 mg PO HS 03/07/24 03/07/24 lithium carbonate 300 mg capsule 300 mg PO HS 03/07/24 03/07/24 multivitamin 1 tab PO DAILY 03/07/24 03/07/24 Previous Rx's Medication Instructions Recorded ipratropium bromide 21 mcg (0.03 2 spray intranasal TID PRN runny 11/14/22 %) nasal spray nose #30 mL Results & Data (ED) Laboratory Data 03/08/24 05:29 03/08/24 05:29 Lab Results 03/07/24 Range/Units 12:05 Urine Color Yellow Urine Appearance Clear (Clear) Urine pH 7.0 (4.5-7.5) Ur Specific [place] 1.019 (1.000-1.030) Urine Protein Negative (Negative) Urine Glucose (UA) Negative (Negative) Urine Ketones 1+ H (Negative) Urine Blood Trace H (Negative) Urine Nitrite Negative (Negative) Urine Bilirubin Negative (Negative) Urine Urobilinogen Negative (Negative) Ur Leukocyte Esterase Negative (Negative) Urine WBC (Auto) 0-5 (0-5) /hpf Urine RBC (Auto) 6-10 H (0-2) /hpf U Hyaline Cast (Auto) 3-5 H (0-2) /lpf U Epithel Cells (Auto) 0-2 (0-2) /hpf Urine Bacteria (Auto) None Seen (None Seen) Administered Medications Ergocalciferol (Ergocalciferol 1250 Mcg (50,000 Units) Cap) 1,250 mcg PO Q7D PETER Stop: 04/07/24 14:59 Last Admin: 03/08/24 15:46 Dose: 1,250 mcg Documented By: BENJAMIN Hydromorphone HCl (Hydromorphone Inj 0.5 Mg/0.5 Ml Syr) 0.5 mg IV Q3H PRN PRN Reason: Pain (6,7,8,9,10) Stop: 03/21/24 12:52 Last Admin: 03/08/24 17:13 Dose: 0.5 mg Documented By: Admin: 03/08/24 09:06 Dose: 0.5 mg Documented By: Admin: 03/08/24 05:09 Dose: 0.5 mg Documented By: Admin: 03/08/24 01:20 Dose: 0.5 mg Documented By: Admin: 03/07/24 19:43 Dose: 0.5 mg Documented By: PHYLLIS Cefazolin Sodium (Ancef 2000mg) 2,000 mg in 15 mls @ 3.75 mls/min IV Q8H PETER; Protocol Stop: 03/09/24 03:03 Last Admin: 03/08/24 18:41 Dose: 3.75 mls/min Documented By: BENJAMIN Sodium Chloride (Nss) 1,000 mls @ 80 mls/hr IV .[id number] PETER Stop: 03/09/24 15:36 Last Admin: 03/08/24 15:18 Dose: 80 mls/hr Documented By: BENJAMIN [place] Carbonate ([place] Carbonate 300 Mg Tab) 300 mg PO HS PETER Stop: 04/06/24 20:59 Last Admin: 03/07/24 20:37 Dose: 300 mg Documented By: JETHRO [place] Carbonate ([place] Carbonate 300 Mg Tab) 150 mg PO HS PETER Stop: 04/06/24 20:59 Last Admin: 03/07/24 20:38 Dose: 150 mg Documented By: JETHRO Discontinued Medications Acetaminophen (Acetaminophen 325 Mg Tab) 650 mg PO Q6H PETER Stop: 04/06/24 15:59 Last Admin: 03/08/24 14:52 Dose: Not Given Documented By: Admin: 03/08/24 03:54 Dose: 650 mg Documented By: Admin: 03/07/24 21:30 Dose: 650 mg Documented By: Admin: 03/07/24 19:21 Dose: 650 mg Documented By: PHYLLIS Bupivacaine HCl/Epinephrine Bitart (Bupivacaine/Epinephrine 0.5% Mpf 1:200,000 30 Ml Vial) Confirm Administered Dose 30 ml .ROUTE .STK-MED ONE Stop: 03/08/24 12:13 Last Admin: 03/08/24 12:29 Dose: 30 ml Documented By: [id number] Fentanyl Citrate (Fentanyl Citrate Pf 100 Mcg/2 Ml Vial) 50 mcg IV Q5M PRN PRN Reason: PACU Use Only-Pain Stop: 03/08/24 18:24 Last Admin: 03/08/24 13:17 Dose: 50 mcg Documented By: Admin: 03/08/24 13:05 Dose: 50 mcg Documented By: RADHA Hydromorphone HCl (Hydromorphone Inj 0.5 Mg/0.5 Ml Syr) 0.5 mg IV NOW STA Stop: 03/07/24 11:17 Last Admin: 03/07/24 11:18 Dose: 0.5 mg Documented By: DANIELA Hydromorphone HCl (Hydromorphone Inj 0.5 Mg/0.5 Ml Syr) Confirm Administered Dose 0.5 mg .ROUTE .STK-MED ONE Stop: 03/07/24 11:18 Last Admin: 03/07/24 11:18 Dose: Not Given Documented By: DANIELA Hydromorphone HCl (Hydromorphone Inj 0.5 Mg/0.5 Ml Syr) 0.5 mg IV NOW STA Stop: 03/07/24 12:44 Last Admin: 03/07/24 13:03 Dose: 0.5 mg Documented By: DANIELA Hydromorphone HCl (Hydromorphone Inj 1 Mg/Ml Syringe) 0.25 mg IV Q5M PRN PRN Reason: PACU Use Only-Pain Stop: 03/08/24 18:24 Last Admin: 03/08/24 13:49 Dose: 0.25 mg Documented By: Admin: 03/08/24 13:44 Dose: 0.25 mg Documented By: RADHA Acetaminophen (Ofirmev) 1,000 mg in 100 mls @ 400 mls/hr IV NOW STA Stop: 03/07/24 12:57 Last Infusion: 03/07/24 13:27 Dose: Infused Documented By: Admin: 03/07/24 13:04 Dose: 400 mls/hr Documented By: DANIELA Tranexamic Acid (Tranexamic Acid / 0.7% Nacl) 1,000 mg in 100 mls @ 600 mls/hr IV TODAY@06 PETER Stop: 04/07/24 05:59 Last Infusion: 03/08/24 11:15 Dose: Infused Documented By: Admin: 03/08/24 11:03 Dose: 600 mls/hr Documented By: [id number] Cefazolin Sodium (Ancef 2000mg) 2,000 mg in 15 mls @ 3.75 mls/min IV PREOP PETER; Protocol Stop: 03/09/24 05:59 Last Admin: 03/08/24 10:55 Dose: 3.75 mls/min Documented By: [id number] Tranexamic Acid (Tranexamic Acid / 0.7% Nacl) 1,000 mg in 100 mls @ 12.5 mls/hr IV .Q8H ONE Stop: 03/07/24 21:29 Last Infusion: 03/08/24 02:02 Dose: Infused Documented By: Admin: 03/07/24 15:17 Dose: 12.5 mls/hr Documented By: PURNIMA Lactated Ringer's (Lr) 1,000 mls @ 999 mls/hr IV .Q1H1M ONE Stop: 03/07/24 15:52 Last Infusion: 03/07/24 16:25 Dose: Infused Documented By: Admin: 03/07/24 15:23 Dose: 999 mls/hr Documented By: PURNIMA Ceftriaxone Sodium (Rocephin) 2,000 mg in 50 mls @ 100 mls/hr IV NOW STA Stop: 03/07/24 16:18 Last Admin: 03/07/24 20:08 Dose: Not Given Documented By: JETHRO Parenteral Electrolytes (Plasma-Lyte A Ph 7.4) 500 mls @ 999 mls/hr IV .Q31M ONE Stop: 03/07/24 16:19 Last Infusion: 03/07/24 16:35 Dose: Infused Documented By: Admin: 03/07/24 16:00 Dose: 999 mls/hr Documented By: PURNIMA Ceftriaxone Sodium (Rocephin) 2,000 mg in 50 mls @ 100 mls/hr IV NOW STA Stop: 03/07/24 20:16 Last Infusion: 03/07/24 20:52 Dose: Infused Documented By: Admin: 03/07/24 20:11 Dose: 100 mls/hr Documented By: RES Discharge Plan Visit Data Chief Complaint: Fall Stated Complaint: FALL, KNEE PAIN ED Provider: Lucila Granger Discharge Problem: Closed hip fracture, Fracture of humeral head Patient Disposition: Admitted As Inpatient Discharge Instructions Interventions: ED Discharge Assessment Last Done: 03/07/24 16:51
[2024-03-07 12:01] LABS: Basophils # (auto) 0.06 K/uL (0.00-0.20); Basophils % (auto) 0.3 %; Eosinophils # (auto) 0.36 K/uL (0.00-0.50); Eosinophils % (auto) 1.7 %; Hematocrit (blood only) 37.3 % (37.0-47.0); Hemoglobin 11.4 g/dl (12.0-16.0); Immature Granulocytes # (auto) 0.23 K/uL (0.01-0.20); Immature Granulocytes % (auto) 1.1 %; Lymphocytes # (auto) 1.95 K/uL (1.20-3.40); Lymphocytes % (auto) 9.2 %; Mean Corpuscular Hemoglobin 30.2 pg (25.0-34.0); Mean Corpuscular Hgb Conc 30.6 g/dL (32.0-36.0); Mean Corpuscular Volume 98.9 fL (80.0-100.0); Mean Platelet Volume 9.8 fL (9.4-12.4); Monocytes # (auto) 1.34 K/uL (0.11-0.59); Monocytes % (auto) 6.3 %; Neutrophils # (auto) 17.27 K/uL (1.40-6.50); Neutrophils % (auto) 81.4 %; Platelet Count 251 K/uL (130-400); RDW Coefficient of Variation 13.5 % (11.5-14.5); RDW Standard Deviation 49.1 fL (36.4-46.3); Red Blood Count 3.77 M/uL (4.20-5.40); White Blood Count 21.21 K/ul (4.8-10.8)
[2024-03-07 12:17] LABS: Anion Gap 9 (3-11); Blood Urea Nitrogen 20 mg/dl (6-23); Calcium 10.1 mg/dl (8.6-10.3); Carbon Dioxide 21 mmol/L (21-32); Chloride 107 mmol/L (98-107); Est GFR (African American) 60.3 ml/min; Est GFR (Non-African American) 52.1 ml/min; Glucose 121 mg/dl (70-99(Fasting)); Potassium 4.8 mmol/L (3.5-5.1); Sodium 137 mmol/L (136-145)
--- NOTE | 2024-03-07 12:23 | XRay Report ---
RIGHT SHOULDER 2 VIEWS CLINICAL HISTORY: Right shoulder injury. Fall. FINDINGS: 2 views of the right shoulder are obtained. No prior studies are available for comparison a t the time of dictation. The skeletal structures are osteopenic. There is impacted and comminuted fra cture of the right humeral head and neck with displaced fragments. There is mild offset of the elizabeth l shaft. Overlying soft tissue edema is observed. No additional fracture is identified. There is no s houlder dislocation. Productive degenerative change is noted at the acromioclavicular joint. The imag ed right lung parenchyma appears clear. Pacemaker leads are noted. IMPRESSION: Impacted and comminuted right humeral head/neck fracture as above. Electronically signed by: Julien Ledesma M.D. 03/07/2024 12:21 PM
--- NOTE | 2024-03-07 12:24 | XRay Report ---
SINGLE VIEW PELVIS; 2 VIEWS RIGHT HIP CLINICAL HISTORY: Fall. Right hip injury. FINDINGS: An AP supine view of the pelvis with AP and crosstable lateral views of the right hip are o btained. No prior studies are available for comparison at the time of dictation. The skeletal structu res are osteopenic. There is an impacted and comminuted intertrochanteric fracture of the right proxi mal femur. There is angulation and offset at the fracture site with medial displacement of the lesser trochanter. Overlying soft tissue edema is noted. No additional acute fracture is seen involving the left hip or the bony pelvis. Gjda-[id number]-tbtleflc arthritic change and joint space narrowing is seen in the hips. Degenerative sclerosis is observed in the sacroiliac joints. IMPRESSION: Intertrochanteric fracture of the right proximal femur as above. Electronically signed by: Julien Ledesma M.D. 03/07/2024 12:23 PM
--- NOTE | 2024-03-07 12:27 | XRay Report ---
SINGLE VIEW CHEST CLINICAL HISTORY: Preoperative examination. Hip and shoulder fractures. FINDINGS: An AP, portable, upright chest radiograph is compared to study dated 12/09/2023. A 2-lead car diac pacemaker is unchanged in position. The mildly enlarged and atherosclerotic calcification of the thoracic aorta. The pulmonary vasculature is noncongested. Chronic interstitial thickening is simila r to previous. There is bibasilar scarring/atelectasis. The lungs and pleural spaces are otherwise cl ear. No pneumothorax is seen. The skeletal structures are osteopenic. There is an acute impacted and comminuted right humeral head/neck fracture with displaced fragments. There is chronic posttraumatic deformity of the left proximal humerus. IMPRESSION: 1. Cardiomegaly and cardiac pacemaker without radiographic evidence of congestive failure. 2. No airspace consolidation or large pleural effusion is identified. 3. Right humeral head/neck fracture as above. ACT 112: Negative or not required by law. Electronically signed by: Julien Ledesma M.D. 03/07/2024 12:26 PM
[2024-03-07 12:36] LABS: Appearance Urine Clear (Clear); Bacteria Urine Automated None Seen (None Seen); Bilirubin Urine Negative (Negative); Blood Urine Trace (Negative); Color Urine Yellow; Epithelial Cell Urine Auto 0-2 /hpf (0-2); Glucose Urine UA Negative (Negative); Ketones Urine 1+ (Negative); Leukocyte Esterase Urine Negative (Negative); Nitrite Urine Negative (Negative); Protein Urine Negative (Negative); Specific Gravity Urine 1.019 (1.000-1.030); Urobilinogen Urine Negative (Negative); WBC Urine Automated 0-5 /hpf (0-5)
--- NOTE | 2024-03-07 12:52 | Orthopedic Consultation ---
Date of Service March 07, 2024 Assessment & Plan (1) Intertrochanteric fracture of right femur: (2) Closed fracture of right proximal humerus: Plan 84-year-old female who is healthy and active enjoys walking unfortunately fell from a standing height on 03/07 resulting in a proximal humerus fracture amenable to nonsurgical management and a right displaced intertrochanteric femur fracture requiring surgery. I reviewed the diagnosis, prognosis, and treatment recommendations with the patient and her and her daughter. I recommend surgical stabilization with a trochanteric fixation nail. I reviewed the implant, expectations for outcome, required rehabilitation, and potential complications. I reviewed the complications may include, but are not limited to, infection, nerve or vessel injury, arthrofibrosis of the hip or knee, need for repeat or revision surgery, symptomatic hardware, nonunion, malunion, need for additional surgery, pain syndromes and complications related anesthesia. She asked appropriate questions demonstrating good understanding, and wanted to proceed with surgery. Informed consent was obtained in the clinic, as all were in agreement to proceed with the hip surgery, which will be right hip closed or open reduction and internal fixation. The proximal humerus can be treated nonoperatively - sling and NWBing for at least 6 weeks. History of Present Illness Reason for Consultation: Right hip and shoulder injuries Requesting Physician: . 84-year-old female who is relatively healthy and active and enjoys walking with her unfortunately slipped as he slipped resulting in her falling down onto her right side. She had immediate pain and inability to ambulate. She was taken to the emergency room where a proximal humerus fracture and intertrochanteric femur fracture were discovered by x-ray. She has been to the hospital for medical optimization and pain control. No prior history of hip fracture. Denies any numbness or tingling. This morning she said she had a bit of knee pain. Allergies Allergy/AdvReac Type Severity Reaction Status Date / Time No Known Drug Allergies Allergy Unknown . Verified 01/27/24 10:18 Home Medications Medication Instructions Recorded Confirmed Type ipratropium bromide 21 mcg (0.03 2 spray intranasal TID PRN runny 11/14/22 03/07/24 Rx %) nasal spray nose #30 mL Nasal [place] 1 spray intranasal DIRECTED 03/07/24 03/07/24 History ergocalciferol (vitamin D2) 1,250 1,250 mcg PO UD 03/07/24 03/07/24 History mcg (50,000 unit) capsule (Vitamin D2) gabapentin 100 mg capsule 200 mg PO UD 03/07/24 03/07/24 History levothyroxine 100 mcg tablet 100 mcg PO UD 03/07/24 03/07/24 History lithium carbonate 150 mg capsule 150 mg PO HS 03/07/24 03/07/24 History lithium carbonate 300 mg capsule 300 mg PO HS 03/07/24 03/07/24 History multivitamin 1 tab PO DAILY 03/07/24 03/07/24 History Past Med/Surg History Problem List Leukocytosis Closed fracture of right proximal humerus Intertrochanteric fracture of right femur Dehydration Vasomotor rhinitis Chronic kidney disease (CKD) stage G3a/A1, moderately decreased glomerular filtration rate (GFR) between 45-59 mL/min/1.73 square meter and albuminuria creatinine ratio less than 30 mg/g COVID Hand pain, right Abnormality of gait due to impairment of balance Wrist pain, right Rhinorrhea Chronic rhinitis Carpal tunnel syndrome of right wrist Post herpetic neuralgia Bipolar disorder in full remission Osteoporosis Hypothyroidism Fall Open fracture of right radius (Acute) Fracture of distal end of right ulna (Acute) Cardiac pacemaker Sinus node dysfunction Medical History Bipolar I disorder, single manic episode Arthritis Internal hemorrhoids Diverticulosis Surgical History History of breast lump removal H/O wrist surgery R wrist Family History Mother Breast cancer Denies family history of Ovarian cancer Prostate cancer Diabetes Myocardial infarction Colorectal cancer Social History Smoking Status: Never smoker Second Hand Exposure: No; Do You Dip or Chew Tobacco: No; Hx Alcohol Use: No Hx Substance Use: No Preferred Language: Latvian Communication Ability: Effective Visual Impairment: Limited Hearing Ability: Normal 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: No Beliefs That Will Affect Care: None marital status: Current Living Situation: Spouse 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 Physical Exam Right lower extremity: The limb is held shortened and in external rotation. No knee effusion. Neurovascular intact positive DF/PF/EHL. Sensation grossly intact to light touch. 2+ DP/PT pulses. Constitutional WD/WN, vitals as above no acute distress and not intoxicated appearing Respiratory normal respiratory effort; no labored breathing Cardiovascular Extremities: normal capillary refill Results & Data Results & Data Laboratory Results H & H 03/07/24 03/08/24 Range/Units Unknown 05:29 Hgb 11.4 L 8.3 L D (12.0-16.0) g/dl Hct 37.3 27.2 L (37.0-47.0) % Coagulation 03/08/24 Range/Units 05:29 INR 1.0 (0.9-1.1) Diagnostic Findings X-rays of the pelvis and the right femur demonstrated intertrochanteric fracture with displacement. Minimal degenerative joint disease of the hip. Radiographs of the right humerus as well as the right shoulder demonstrate a comminuted at least 4 part proximal humerus fracture in acceptable impacted alignment. There is a greater tuberosity fragment that is displaced. PG Care Time/CCT Total # of Minutes Spent Total Time Spent with Patient: Total time spent is greater than 50% in coordination of care (as documented) at patient's floor/unit and/or counseling patient: Coding Level of Care Code 75280 IN/OBS CONSULT LVL 4,60M (57 - DECISION FOR SURGERY) Diagnoses Intertrochanteric fracture of right femur S72.141A Closed fracture of right proximal humerus S42.201A
--- NOTE | 2024-03-07 12:52 | History & Physical Report ---
Date of Service March 07, 2024 Assessment & Plan (1) Intertrochanteric fracture of right femur: Plan: Admit to [facility] on pulse oximetry Currently stable nontoxic-appearing Presented to the ED via EMS after sustaining a fall while walking on a wet wooden bridge with her this a.m., patient's initially slipped causing her to fall as well Landed on her right side, denies hitting her head or losing consciousness Sustained a impacted and comminuted intertrochanteric fracture of the right proximal femur with angulation and offset at the fracture site No other trauma on exam besides her right hip/humerus fracture Orthopedics has been consulted and will evaluate the patient later today or early tomorrow morning, confirmed patient will likely be taken to the OR tomorrow morning for surgical repair of the right hip fracture Continue scheduled Tylenol and as needed hydromorphone for pain Bilateral SCDs for DVT prophylaxis until after her procedure tomorrow Aspiration/fall precautions Vivar catheter was placed in the ED continue for now as patient should be strict bedrest until repair for acute fractures Will start heart healthy diet until midnight then n.p.o. in preparation for the OR tomorrow with orthopedics Patient does not have a history of CA, heart failure, no signs of volume overload on exam or chest x-ray, renal function is stable, does not require preoperative treatment with insulin, and will not be undergoing elevated risk surgery > Patient is a class I risk on the revised cardiac risk index giving her a 3.9% 30-day risk of , CA, or cardiac arrest after surgical repair She is deemed stable for surgical repair at this time AM CBC, CMP, mag, PT/INR (2) Leukocytosis: Plan: Patient noted to have a leukocytosis of 21 with neutrophil predominance of 17 on arrival Confirms she has been without fever/chills, respiratory, GI, urinary symptoms No recent wounds No signs of infection on chest x-ray or UA Suspect leukocytosis is likely reactive from trauma this a.m. Continue to monitor daily CBC for now, will hold empiric antibiotics at this time as she is stable and nontoxic-appearing (3) Closed fracture of right proximal humerus: Plan: Sustained an impacted and comminuted right humeral head/neck fracture during her fall this morning Follow orthopedic surgery consult Patient will be placed in right shoulder sling in the near future as recommended by orthopedics, they do not believe she will need surgical repair of this fracture at this time Rest of care per right femur fracture plan (4) Fall: Plan: Patient and confirm fall was mechanical in nature while walking this morning, patient fell due to her falling causing her to lose her balance No other acute trauma on exam besides her right hip and right proximal humeral neck fracture PT/OT consults, fall/aspiration precautions Rest of care per right hip fracture plan (5) Bipolar disorder in full remission: Plan: Currently stable and without exacerbation of chronic symptoms Confirmed she is still on daily lithium Will obtain lithium level at time of admission and plan to continue home dose of lithium at this time (6) Hypothyroidism: Plan: Continue levothyroxine Plan The patient was discussed with Dr. Higginbotham at the time of the admission History of Present Illness Chief Complaint: Fall, right hip/shoulder pain Primary Care Provider: Marcin Noel MD Sonia is an 84-year-old female with a past medical history significant for bipolar disorder (on lithium), hypothyroidism, sinus node dysfunction status post cardiac pacemaker placement, stage III CKD who presented [facility] ED on 03/07/2024 via ALS after sustaining a fall while walking on a wooden bridge at [facility] this morning. Patient reportedly slipped and fell on her right side with resultant right shoulder and hip pain. Remained stable in the ED. Labs were significant for a leukocytosis of 21 with neutrophil predominance of 17, and UA with 1+ ketones, trace blood, 6-10 RBC, 35 hyaline cast, but otherwise unremarkable. Chest x-ray was read as cardiomegaly and cardiac pacemaker without radiographic evidence of congestive failure. No airspace consolidation or large pleural effusion is identified. Right humeral head/neck fracture as above. X-ray of the right shoulder noted an impacted and comminuted right humeral head/neck fracture. X-ray of the right hip/pelvis noted an intertrochanteric fracture of the right proximal femur which was noted to be impacted and comminuted. The ED spoke with orthopedics who confirmed the patient could remain at facility and will likely undergo surgical repair of the tomorrow. Recommended sling placement of the right upper arm for her right humeral neck fracture. Prior to admission the patient was given 1 g IV Tylenol, 2 doses of 0.5 mg IV Dilaudid. Patient is lying in bed in mild distress due to right hip pain at the time of exam with her and daughter bedside, history is obtained from all. The patient and her confirmed that they were walking in [facility] this morning, the patient had been in her normal state of health when she woke this morning. Her explains that they were walking on the wooden bridge at [facility] on a decline when he slipped due to the wooden bridge being slick along with having wet leaves on top. He excellently grabbed the while falling causing her to fall as well, they confirmed that she landed on her right shoulder/hip. She denies hitting her head or losing consciousness. Since the fall she has been experiencing severe right hip and right shoulder pain. Denies head, neck, thoracic/lumbar back pain, left upper or lower extremity pain. No new paresthesias, changes in vision, hearing, taste, smell, chest pain, shortness of breath, abdominal pain, nausea/vomiting, dysuria/hematuria, diarrhea, lower extremity swelling. Understands that she will require surgical repair of the right hip but will likely only require a sling for the right humeral neck fracture. Confirms she had her a.m. doses of medications and is not on anticoagulation. She is a full code and want her and daughter to make medical decisions for her if she cannot make them herself. Please refer to Dr. Yi's attestation for any changes to the treatment plan Allergies Allergy/AdvReac Type Severity Reaction Status Date / Time No Known Drug Allergies Allergy Unknown . Verified 01/27/24 10:18 Home Medications Medication Instructions Recorded Confirmed Type ipratropium bromide 21 mcg (0.03 2 spray intranasal TID PRN runny 11/14/22 03/07/24 Rx %) nasal spray nose #30 mL Nasal [place] 1 spray intranasal DIRECTED 03/07/24 03/07/24 History ergocalciferol (vitamin D2) 1,250 1,250 mcg PO UD 03/07/24 03/07/24 History mcg (50,000 unit) capsule (Vitamin D2) gabapentin 100 mg capsule 200 mg PO UD 03/07/24 03/07/24 History levothyroxine 100 mcg tablet 100 mcg PO UD 03/07/24 03/07/24 History lithium carbonate 150 mg capsule 150 mg PO HS 03/07/24 03/07/24 History lithium carbonate 300 mg capsule 300 mg PO HS 03/07/24 03/07/24 History multivitamin 1 tab PO DAILY 03/07/24 03/07/24 History Past Med/Surg History Problem List (Updated 03/07/24 @ 13:23 by Rashid Montgomery PA-C) Leukocytosis Closed fracture of right proximal humerus Intertrochanteric fracture of right femur Dehydration Vasomotor rhinitis Chronic kidney disease (CKD) stage G3a/A1, moderately decreased glomerular filtration rate (GFR) between 45-59 mL/min/1.73 square meter and albuminuria creatinine ratio less than 30 mg/g COVID Hand pain, right Abnormality of gait due to impairment of balance Wrist pain, right Rhinorrhea Chronic rhinitis Carpal tunnel syndrome of right wrist Post herpetic neuralgia Bipolar disorder in full remission Osteoporosis Hypothyroidism Fall Open fracture of right radius (Acute) Fracture of distal end of right ulna (Acute) Cardiac pacemaker Sinus node dysfunction Medical History Arthritis Bipolar I disorder, single manic episode Cardiac pacemaker Chronic rhinitis Diverticulosis Hypothyroidism Internal hemorrhoids Rhinorrhea Surgical History H/O wrist surgery History of breast lump removal Family History Mother Breast cancer Denies family history of Ovarian cancer Prostate cancer Diabetes Myocardial infarction Colorectal cancer Social History (Updated 04/15/23 @ 09:22 by Grecia Kaye LPN) Smoking Status: Never smoker Second Hand Exposure: No; Do You Dip or Chew Tobacco: No; Hx Alcohol Use: No Hx Substance Use: No Preferred Language: Syriac Communication Ability: Effective Visual Impairment: Limited Hearing Ability: Normal Beliefs That Will Affect Care: None marital status: Current Living Situation: Spouse 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 How many Children do You have: 1 How many Children do You have Comment: adopted child Feels Safe at Home: Yes Childhood Exposure to Second-Hand Smoke: No Diet: regular Diet Comment: very little meat caffeine: Yes during the past year weight has: remained stable Dental Care, Regularly: Yes Physical Activity Frequency: 3-4 Times per Week Physical Activity Frequency Comment: walking Seatbelt Use: always Sunscreen Use: Yes Assistive Devices: Glasses Physical Exam Physical Exam: Physical Exam: General: In mild distress due to pain, stated age, well-nourished, good hygiene HEENT: Normocephalic, atraumatic, no scleral icterus, pupils around round, symmetrical, and reactive to light, dry mucus membranes, trachea midline, no thyromegaly Chest/Pulm: No respiratory distress, symmetrical chest expansion, clear breath sounds throughout Cardiac: RRR, no murmurs noted Abdomen: Negative for ascites and bruising, normoactive bowel sounds, soft, non-tender to palpation throughout Musculoskeletal: Patient with tenderness to palpation of the right shoulder/right upper humerus, right lower extremity is shortened and externally rotated with tenderness to palpation of the right hip, otherwise no acute trauma on inspection and palpation of the face, head, cervical spine, chest, abdomen/pelvis, left upper extremity and left lower extremity Extremities: Radial, dorsalis pedis, and posterior tibial pulses are intact and symmetrical, no edema noted in the BL LE's Skin: Warm, dry, no rashes , lesions, or scars noted Neuro: Alert and oriented to person, place, month, year, and president, no focal defects, patient with intact sensation and motor function in the right hand and right foot Psych: Mild distress, calm and cooperative during the exam Results & Data Results & Data Vital Signs (Past 12 Hours) Vital Signs Temp Pulse Resp BP Pulse Ox O2 Del Method 03/07/24 12:10 71 03/07/24 11:55 62 16 114/56 L 100 03/07/24 11:01 36.6 C 67 18 133/58 L 93 Room Air Laboratory Results Abnormal lab results 03/07/24 03/07/24 Range/Units 12:05 Unknown WBC 21.21 H (4.8-10.8) K/ul RBC 3.77 L (4.20-5.40) M/uL Hgb 11.4 L (12.0-16.0) g/dl MCHC 30.6 L (32.0-36.0) g/dL RDW Std Deviation 49.1 H (36.4-46.3) fL Neut # (Auto) 17.27 H (1.40-6.50) K/uL [place] # (Auto) 1.34 H (0.11-0.59) K/uL Immature Gran # (Auto) 0.23 H (0.01-0.20) K/uL Glucose 121 H (70-99(Fasting)) mg/dl Urine Ketones 1+ H (Negative) Urine Blood Trace H (Negative) Urine RBC (Auto) 6-10 H (0-2) /hpf U Hyaline Cast (Auto) 3-5 H (0-2) /lpf Diagnostic Findings Hip/Pelvis X-Ray 03/07/24 11:08 SINGLE VIEW PELVIS; 2 VIEWS RIGHT HIP CLINICAL HISTORY: Fall. Right hip injury. FINDINGS: An AP supine view of the pelvis with AP and crosstable lateral views of the right hip are obtained. No prior studies are available for comparison at the time of dictation. The skeletal structures are osteopenic. There is an impacted and comminuted intertrochanteric fracture of the right proximal femur. There is angulation and offset at the fracture site with medial displacement of the lesser trochanter. Overlying soft tissue edema is noted. No additional acute fracture is seen involving the left hip or the bony pelvis. [id number] arthritic change and joint space narrowing is seen in the hips. Degenerative sclerosis is observed in the sacroiliac joints. IMPRESSION: Intertrochanteric fracture of the right proximal femur as above. Electronically signed by: Julien Ledesma M.D. 03/07/2024 12:23 PM Chest X-Ray 03/07/24 11:22 SINGLE VIEW CHEST CLINICAL HISTORY: Preoperative examination. Hip and shoulder fractures. FINDINGS: An AP, portable, upright chest radiograph is compared to study dated 12/09/2023. A 2-lead cardiac pacemaker is unchanged in position. The mildly enlarged and atherosclerotic calcification of the thoracic aorta. The pulmonary vasculature is noncongested. Chronic interstitial thickening is similar to previous. There is bibasilar scarring/atelectasis. The lungs and pleural spaces are otherwise clear. No pneumothorax is seen. The skeletal structures are osteopenic. There is an acute impacted and comminuted right humeral head/neck fracture with displaced fragments. There is chronic posttraumatic deformity of the left proximal humerus. IMPRESSION: 1. Cardiomegaly and cardiac pacemaker without radiographic evidence of congestive failure. 2. No airspace consolidation or large pleural effusion is identified. 3. Right humeral head/neck fracture as above. ACT 112: Negative or not required by law. Electronically signed by: Julien Ledesma M.D. 03/07/2024 12:26 PM Shoulder X-Ray 03/07/24 11:32 RIGHT SHOULDER 2 VIEWS CLINICAL HISTORY: Right shoulder injury. Fall. FINDINGS: 2 views of the right shoulder are obtained. No prior studies are available for comparison at the time of dictation. The skeletal structures are osteopenic. There is impacted and comminuted fracture of the right humeral head and neck with displaced fragments. There is mild offset of the humeral shaft. Overlying soft tissue edema is observed. No additional fracture is identified. There is no shoulder dislocation. Productive degenerative change is noted at the acromioclavicular joint. The imaged right lung parenchyma appears clear. Pacemaker leads are noted. IMPRESSION: Impacted and comminuted right humeral head/neck fracture as above. Electronically signed by: Julien Ledesma M.D. 03/07/2024 12:21 PM ECG Additional Comments: Atrial-paced rhythm Ventricular sensing Abnormal ECG When compared with ECG of 09-Dec-2023 12:02, No significant change was found Confirmed by María Elena Brown ([id number]) on 03/07/2024 12:55:51 PM Code Status & VTE Plan Code Status Full code VTE Prophylaxis Plan VTE Prophylaxis will be ordered: Yes Supervising Physician Co-Signing Physician Notes Patient seen and examined, chart reviewed, case discussed with Rashid Montgomery PA-C and I agree with the assessment and plan as above except as otherwise noted Labs and images reviewed 84-year-old female with mechanical fall who presents with a intertrochanteric fracture of the right femur. RCRI class I risk. Surgery consulted for impacted/comminuted right humeral head/neck fracture and intertrochanteric right femur fracture. She does have a leukocytosis which may be from demargination however this does have a immature granulocytic expansion and she is transiently hypotensive in the ER which are inconsistent with just demargination. Obtain blood cultures, and give additional fluids to make 30 cc/kg recommendations. Lactate added. She denies localizing infectious symptoms including dysuria, shortness of breath, chest pain, cough, GI symptoms. She does note that she had dental work performed the last month, and had 2 teeth pulled within our surgeon. She does not have any jaw pain, dental pain, or swelling. Examination of the oropharynx shows intact prosthetic anchors over there is some slight hyperemia on the right upper gumline. Given leukocytosis with slight left shift and recent dental work will switch antibiotics to Unasyn. Agree with above. Shortened, externally rotated right hip. Right proximal humeral tenderness to palpation. Last x-ray is clear. Lungs are clear. Agree with above. PG Care Time/CCT Total # of Minutes Spent Total Time Spent with Patient: Total time spent is greater than 50% in coordination of care (as documented) at patient's floor/unit and/or counseling patient: Coding [place] [address] INT INP/OBS CARE 3/75MIN Patient Type Established Medical Decision Making High Complexity Diagnoses Intertrochanteric fracture of right femur S72.141A Leukocytosis D72.829 Closed fracture of right proximal humerus S42.201A Fall, subsequent encounter W19.XXXD Encounter type: subsequent encounter Bipolar disorder in full remission, most recent episode unspecified type F31.70 Most recent bipolar episode type: unspecified type Hypothyroidism E03.9 (4) Fall Encounter type: subsequent encounter Qualified Code(s): W19.XXXD - Uns pecified fall, subsequent encounter (5) Bipolar disorder in full remission Most recent bipolar episode type: unspecified type Qualified Code(s): F31.70 - Bipolar disorder, currently in remission, most recent episode unspecified
[2024-03-07] MEDS ORDERED: NALOXONE HCL 0.4 MG/1 ML VIAL/CARP IV PRN (12:53)
[2024-03-07] MEDS ORDERED: bisacodyL 10 MG SUPP PR PRN (12:53)
[2024-03-07] MEDS ORDERED: MAGNESIUM HYDROXIDE SUSP 30 ML UDC PO PRN (12:53)
[2024-03-07] MEDS ORDERED: HYDROmorphone INJ 0.5 MG/0.5 ML SYR IV PRN (12:53)
--- NOTE | 2024-03-07 12:56 | Electrocardiogram Report ---
Test Reason : Blood Pressure : */* mmHG Vent. Rate : 61 BPM Atrial Rate : 61 BPM P-R Int : 182 ms QRS Dur : 80 ms QT Int : 414 ms P-R-T Axes : -12 16 65 degrees QTcB Int : 416 ms Atrial-paced rhythm Ventricular sensing Abnormal ECG When compared with ECG of 09-Dec-2023 12:02, No significant change was found Confirmed by María Elena Brown (Nany) on 03/07/2024 12:55:51 PM Referred By: REFERRED SELF Confirmed By: María Elena Bronw
[2024-03-07] MEDS: ACETAMINOPHEN 1,000 MG/100 ML VIAL IV STA (13:04)
[2024-03-07] MEDS ORDERED: COUGH DROP (SUGAR FREE) LOZ 24 LOZ/1 BOX BUCCAL PRN (13:19)
[2024-03-07] MEDS: TRANEXAMIC ACID / 0.7% NACL 1,000 MG/100 ML BAG IV ONE (14:28)
--- NOTE | 2024-03-07 14:42 | XRay Report ---
RIGHT SHOULDER 3 VIEWS CLINICAL HISTORY: Right humeral fracture. FINDINGS: 3 views of the right shoulder are compared to study performed earlier the same day 4. The skeletal structures are osteopenic. Again seen is an impacted and comminuted fracture of the r ight humeral head and neck with displaced fragments. A 2.5 cm fragment is seen superior to the elizabeth l head. There is approximately 1 cm of lateral offset of the humeral shaft. Overlying soft tissue benjamin ma is observed. No additional fracture is identified. There is no shoulder dislocation. Ctdk-wy-dvnzb ate arthritic change is seen at the glenohumeral articulation. Productive degenerative change is note d at the acromioclavicular joint. The imaged right lung parenchyma appears clear. IMPRESSION: Impacted and comminuted right humeral head/neck fracture as above. Electronically signed by: Julien Ledesma M.D. 03/07/2024 2:40 PM
[2024-03-07] MEDS: LACTATED RINGER'S 1,000 ML IV ONE (15:23)
[2024-03-07] MEDS: PLASMA-LYTE A 500 ML IV ONE (16:00)
[2024-03-07] MEDS: ACETAMINOPHEN 325 MG TAB PO SCH (19:21)
[2024-03-07] MEDS: HYDROmorphone INJ 0.5 MG/0.5 ML SYR IV PRN (19:43)
[2024-03-07] MEDS: cefTRIAXone SODIUM 2,000 MG/50 ML BAG IV STA ×2 (20:08→20:11)
[2024-03-07] MEDS: LITHIUM CARBONATE 300 MG TAB PO SCH ×2 (20:37→20:38)
[2024-03-08 06:17] LABS: Albumin Globulin Ratio 1.6 (0.9-2); Albumin Level 3.1 gm/dl (3.4-5.0); BUN Creatinine Ratio 20.7 (10-20); Bilirubin,Total 0.4 mg/dl (0.2-1.0); Calcium 9.2 mg/dl (8.6-10.3); Creatinine Clr Calc Pharmacy 29.4 ml/min; Est GFR (Non-African American) 36.2 ml/min; Magnesium 2.2 mg/dl (1.7-2.4); Total Protein 5.1 gm/dl (6.0-8.3)
[2024-03-08 06:25] LABS: Prothrombin Time 10.6 Seconds (9.0-12.0)
[2024-03-08 07:44] LABS: Basophils # (auto) 0.03 K/uL (0.00-0.20); Basophils % (auto) 0.3 %; Eosinophils # (auto) 0.21 K/uL (0.00-0.50); Eosinophils % (auto) 1.9 %; Hematocrit (blood only) 27.2 % (37.0-47.0); Hemoglobin 8.3 g/dl (12.0-16.0); Immature Granulocytes # (auto) 0.06 K/uL (0.01-0.20); Immature Granulocytes % (auto) 0.5 %; Lymphocytes # (auto) 1.17 K/uL (1.20-3.40); Lymphocytes % (auto) 10.5 %; Mean Corpuscular Hemoglobin 30.1 pg (25.0-34.0); Mean Corpuscular Hgb Conc 30.5 g/dL (32.0-36.0); Mean Corpuscular Volume 98.6 fL (80.0-100.0); Mean Platelet Volume 9.9 fL (9.4-12.4); Monocytes # (auto) 1.39 K/uL (0.11-0.59); Monocytes % (auto) 12.5 %; Neutrophils # (auto) 8.28 K/uL (1.40-6.50); Neutrophils % (auto) 74.3 %; Platelet Count 207 K/uL (130-400); RDW Coefficient of Variation 14.1 % (11.5-14.5); RDW Standard Deviation 50.6 fL (36.4-46.3); Red Blood Count 2.76 M/uL (4.20-5.40); White Blood Count 11.14 K/ul (4.8-10.8)
[2024-03-08] MEDS ORDERED: PROPOFOL IV EMULSION 10 MG/ML 20 ML VIAL IV ONE (10:16)
[2024-03-08] MEDS ORDERED: ONDANSETRON INJ 2 MG/ML 2 ML VIAL ONE (10:16)
[2024-03-08] MEDS ORDERED: LIDOCAINE 2% 2 ML VIAL/AMP(20MG/ML) INFIL ONE (10:16)
[2024-03-08] MEDS ORDERED: DEXAMETHASONE SOD INJ 4 MG/ML VIAL ONE (10:16)
[2024-03-08] MEDS ORDERED: fentaNYL citrate PF 100 MCG/2 ML VIAL ONE ×2 (10:18→11:40)
[2024-03-08] MEDS ORDERED: MIDAZOLAM HCL 1 MG/ML 2ML VIAL ONE (10:18)
[2024-03-08] MEDS ORDERED: ATROPINE SULFATE 0.1 MG/ML 10ML SYR IV PRN (10:23)
[2024-03-08] MEDS ORDERED: ePHEDrine sulfate 50 MG/ML AMP IV PRN (10:23)
[2024-03-08] MEDS ORDERED: ONDANSETRON INJ 2 MG/ML 2 ML VIAL IV PRN (10:23)
--- NOTE | 2024-03-08 10:23 | Anesthesiology Consultation ---
Date of Service March 08, 2024 Assessment & Plan Chart Review Chart Review: Acceptable Risk for Surgery and Patient NOT seen in Pre Admission Testing ASA ASA3 Proposed Anesthesia Anesthesia Type: General Risk / Benefits Reviewed With: PT / POA / Parent / Guardian, Accepts Plan and Informed Consent Obtained History Surgery Operation Date: 03/08/24 09:30 Proposed Procedures p Intramedullary Elan Femur - Rashid Wiseman MD Height/Weight Height: 5 ft 7 in Weight: 59 kg Allergies Allergy/AdvReac Type Severity Reaction Status Date / Time No Known Drug Allergies Allergy Unknown . Verified 01/27/24 10:18 Medications Home Medications Medication Instructions Recorded Confirmed Last Taken ipratropium bromide 21 mcg (0.03 2 spray intranasal TID PRN runny 11/14/22 03/07/24 Unknown %) nasal spray nose #30 mL Nasal [place] 1 spray intranasal DIRECTED 03/07/24 03/07/24 Unknown ergocalciferol (vitamin D2) 1,250 1,250 mcg PO UD 03/07/24 03/07/24 Unknown mcg (50,000 unit) capsule (Vitamin D2) gabapentin 100 mg capsule 200 mg PO UD 03/07/24 03/07/24 Unknown levothyroxine 100 mcg tablet 100 mcg PO UD 03/07/24 03/07/24 Unknown lithium carbonate 150 mg capsule 150 mg PO HS 03/07/24 03/07/24 Unknown lithium carbonate 300 mg capsule 300 mg PO HS 03/07/24 03/07/24 Unknown multivitamin 1 tab PO DAILY 03/07/24 03/07/24 Unknown Active Medications Generic Name Dose Route Start Last Admin Trade Name Freq PRN Reason Stop Dose Admin Acetaminophen 650 mg 03/07/24 16:00 03/08/24 03:54 Acetaminophen 325 Mg Tab PO 04/06/24 15:59 650 mg Q6H PETER Administration Hydromorphone HCl 0.5 mg 03/07/24 12:53 03/08/24 09:06 Hydromorphone Inj 0.5 Mg/0.5 Ml Syr IV 03/21/24 12:52 0.5 mg Q3H PRN Administration Pain (6,7,8,9,10) [place] Carbonate 300 mg 03/07/24 21:00 03/07/24 20:37 [place] Carbonate 300 Mg Tab PO 04/06/24 20:59 300 mg HS PETER Administration [place] Carbonate 150 mg 03/07/24 21:00 03/07/24 20:38 [place] Carbonate 300 Mg Tab PO 04/06/24 20:59 150 mg HS PETER Administration NPO Date Last Intake of Fluids: 03/07/24 Time Last Intake of Fluids: 23:59 Date Last Intake of Solids: 03/07/24 Time Last Intake of Solids: 23:59 Past Medical History Medical History Bipolar I disorder, single manic episode Arthritis Internal hemorrhoids Diverticulosis Exercise / Class Metabolic Activity II 4-5 Yardwork/Stairs/Walk up hill Past Family History Family History Mother Breast cancer Denies family history of Ovarian cancer Prostate cancer Diabetes Myocardial infarction Colorectal cancer Past Surgical History Surgical History History of breast lump removal H/O wrist surgery R wrist Past Anesthesia History No Hx of Anesthesia Complications and No Family Hx of Anesthesia Complications History of PONV No Hx of PONV and No Hx of Motion Sickness Social History Smoking Status: Never smoker Do You Dip or Chew Tobacco: No Hx Alcohol Use: No Hx Substance Use: No Review of Systems denies fever/cough/ colds/ chest pain/ SOB/ GABY denies GABY Physical Exam Vital Signs Last Vital Signs Temp 36.7 C 03/08/24 07:36 Pulse 61 03/08/24 07:36 Resp 16 03/08/24 07:36 BP 105/57 L 03/08/24 08:58 Pulse Ox 99 03/08/24 07:36 O2 Del Method Nasal Cannula 03/08/24 08:13 O2 Flow Rate 2 03/08/24 07:36 ENMT Mouth: no TMJ abnormality and no dentition abnormality Thyromental Distance: > or= 3.5 Finger Breadths Mallampati Class: II Neck neck extension not limited Respiratory normal respiratory effort; no respiratory distress Auscultation: lungs clear to auscultation bilaterally Cardiovascular Rate/Rhythm: regular rate and regular rhythm Neurologic moves all extremities Psychiatric Orientation: alert and oriented x 3 Testing Laboratory Results 03/08/24 05:29 03/08/24 05:29 PT 10.6 Seconds (9.0-12.0) 03/08/24 05:29 INR 1.0 (0.9-1.1) 03/08/24 05:29 Urine Color Yellow 03/07/24 12:05 Urine Appearance Clear (Clear) 03/07/24 12:05 Urine pH 7.0 (4.5-7.5) 03/07/24 12:05 Ur Specific [place] 1.019 (1.000-1.030) 03/07/24 12:05 Urine Protein Negative (Negative) 03/07/24 12:05 Urine Glucose (UA) Negative (Negative) 03/07/24 12:05 Urine Ketones 1+ (Negative) H 03/07/24 12:05 Urine Nitrite Negative (Negative) 03/07/24 12:05 Ur Leukocyte Esterase Negative (Negative) 03/07/24 12:05 Urine WBC (Auto) 0-5 /hpf (0-5) 03/07/24 12:05 Urine RBC (Auto) 6-10 /hpf (0-2) H 03/07/24 12:05 U Hyaline Cast (Auto) 3-5 /lpf (0-2) H 03/07/24 12:05 U Epithel Cells (Auto) 0-2 /hpf (0-2) 03/07/24 12:05 Urine Bacteria (Auto) None Seen (None Seen) 03/07/24 12:05
--- NOTE | 2024-03-08 10:23 | Hospitalist Progress Note ---
Date of Service March 08, 2024 Assessment & Plan (1) Intertrochanteric fracture of right femur: Plan: Patient Presented to the ED via EMS after sustaining a fall while walking on a wet wooden bridge with her this a.m., patient's initially slipped causing her to fall as well Landed on her right side, denies hitting her head or losing consciousness Sustained a impacted and comminuted intertrochanteric fracture of the right proximal femur with angulation and offset at the fracture site Orthopedics has been consulted and plan is for nail fixation in the Or today (2) Leukocytosis: Plan: Likely reactive, no sign of infection, continue to monitor off antibiotics (3) Closed fracture of right proximal humerus: Plan: Sustained an impacted and comminuted right humeral head/neck fracture during her fall this morning Follow orthopedic surgery consult Patient will be placed in right shoulder sling in the near future as recommended by orthopedics, they do not believe she will need surgical repair of this fracture at this time Rest of care per right femur fracture plan (4) Fall: Plan: Patient and confirm fall was mechanical in nature while walking this morning, patient fell due to her falling causing her to lose her balance No other acute trauma on exam besides her right hip and right proximal humeral neck fracture PT/OT consults, fall/aspiration precautions Rest of care per right hip fracture plan (5) Bipolar disorder in full remission: Plan: Currently stable and without exacerbation of chronic symptoms Confirmed she is still on daily lithium Will obtain lithium level at time of admission and plan to continue home dose of lithium at this time (6) Hypothyroidism: Plan: Continue levothyroxine Plan Full code DVT scd Admission and Anticipated Discharge Date Admission Date: March 07, 2024 Subjective patient seen and examined, family by the bedside, plan is for OR this morning Review of Systems Review of Systems: All systems reviewed are negative, apart from the ones contained in the history. Physical Exam Physical Exam: The patient is awake, alert and oriented 3, well developed and well nourished, normocephalic and atraumatic, lying in bed and in no acute distress. HEENT--PERRL, EOMI, mucous membranes and oropharynx mildly dry Neck--supple. No JVD. No bruits. Thyroid normal, trachea midline, no adenopathy. Heart--normal S1 and S2. No murmurs, rubs or gallops. Lungs--clear bilaterally, no respiratory distress, no accessory muscle use. Abdomen--normal bowel sounds and soft. Extremities--right arm in sling Dermatologic--normal skin turgor, normal color, no abnormal lymph nodes, no rash. Neurologic--cranial nerves II through XII grossly intact. Rheumatologic--normal range of motion. Psychiatric--normal affect. Results & Data Results & Data Vital Signs (Past 12 Hours) Vital Signs Temp Pulse Resp BP Pulse Ox O2 Del Method O2 Flow Rate 03/08/24 08:58 105/57 L 03/08/24 08:13 Nasal Cannula 03/08/24 07:36 98.1 F 61 16 90/50 L 99 Nasal Cannula 2 03/08/24 06:34 98.2 F 62 16 90/49 L 100 Nasal Cannula 2 03/08/24 00:27 61 98/61 L 100 Nasal Cannula 2 03/07/24 23:09 87/67 L PG Care Time/CCT Total # of Minutes Spent Total Time Spent with Patient: Total time spent is greater than 50% in coordination of care (as documented) at patient's floor/unit and/or counseling patient: Coding Level of Care Code 03550 SUB INP/OBS CARE 2/35MIN Diagnoses Intertrochanteric fracture of right femur S72.141A Leukocytosis D72.829 Closed fracture of right proximal humerus S42.201A Fall, subsequent encounter W19.XXXD Encounter type: subsequent encounter Bipolar disorder in full remission, most recent episode unspecified type F31.70 Most recent bipolar episode type: unspecified type Hypothyroidism E03.9 Time Spent (min) 35 (4) Fall Encounter type: subsequent encounter Qualified Code(s): W19.XXXD - Unspecified fall, subsequent encounter (5) Bipolar disorder in full remission Most recent bipolar episode type: unspecified type Qualified Code(s): F31.70 - Bipolar disorder, currently in remission, most recent episode unspecified
--- NOTE | 2024-03-08 10:26 | History & Physical Bridge Note ---
Date of Service March 08, 2024 History & Physical Bridge Note I have examined the patient, reviewed the History & Physical and in the interval since the performance of the History & Physical I have noted the following changes of clinical significance: no changes noted
[2024-03-08] MEDS ORDERED: ceFAZolin 330 MG/ML 1 GM VIAL ONE (10:55)
[2024-03-08] MEDS: ceFAZolin 2000MG 2,000 MG/15 ML SYR IV SCH ×2 (10:55→18:41)
[2024-03-08] MEDS: TRANEXAMIC ACID / 0.7% NACL 1,000 MG/100 ML BAG IV SCH (11:03)
[2024-03-08] MEDS ORDERED: PHENYLEPHRINE 100MCG/ML 10ML SYR IV ONE (11:11)
[2024-03-08] MEDS: BUPIVACAINE/EPINEPHRINE 0.5% MPF 1:200,000 30 ML VIAL ONE (12:29)
--- NOTE | 2024-03-08 12:35 | Fluoroscopy Report ---
INTRAOPERATIVE RADIOGRAPHS CLINICAL HISTORY: Open reduction and internal fixation of a right femoral fracture. Fluoro time: 133 seconds Ka,r: 24.92 mGy FINDINGS: 6 spot fluoroscopic views of the right femur are compared to radiographs dated 03/07/2024. T here has been intertrochanteric and intramedullary nail fixation of a comminuted intertrochanteric ri ght femoral fracture with buddhism of near-anatomic alignment. A single cortical lag screw transfi xes the distal end of the intramedullary nail. There is persistent medial displacement of the lesser trochanter. Overlying soft tissue edema is observed. IMPRESSION: Intraoperative images from open reduction and internal fixation of a right femoral fractu re as above. Electronically signed by: Julien Ledesma M.D. 03/08/2024 12:34 PM
[2024-03-08] MEDS: fentaNYL citrate PF 100 MCG/2 ML VIAL IV PRN (13:05)
--- NOTE | 2024-03-08 13:09 | Operative Report ---
PG Post Operative Report Pre & Post Diagnosis Operation Date: 03/08/24 09:30 Pre-Op Diagnosis: Intertrochanteric Fracture of Right Femur Post-Op Diagnosis: Intertrochanteric Fracture of Right Femur I identified the patient and participated in the time-out.: Yes Procedure Operation Date: 03/08/24 09:30 Actual Procedures p Right hip fracture closed reduction and internal fixation with long trochanteric fixation nail(Right) - Rashid Wiseman MD Surgeon Rashid Wiseman MD [employer] Operator None Estimated Blood Loss 50 Findings See Below Comminuted intratrochanteric fracture with subtrochanteric extension. All [employer] implants:. 11mm/130 degree titanium cannulated trochanteric fixation nail of 380 mm length. 11.0 mm titanium helical blade of 95 mm length. Distal interlock screw measuring 46 mm. Specimens none Anesthesia Type MAC Spinal Regional Complications none Disposition Accompanied Patient To Recovery: No Disposition: Surgical ICU Indications 84-year-old female sustained a slip and fall yesterday while walking resulting in a intertrochanteric femur fracture. I reviewed the diagnosis, prognosis and treatment recommendations with the patient and her . I recommended surgical stabilization with a trochanteric fixation nail. I reviewed the risk, benefits, and alternatives to surgery in detail. Informed consent was obtained in the preoperative area, as the patient and her and daughter were all agreeable to proceed with the surgery that I had described. Description of Procedure On the day of surgery should be was greeted in the preoperative holding area and the informed consent was reviewed and confirmed. The surgical site was then identified by the patient and signed by myself. The patient was taken to the operating placed by the OR table and anesthesia was induced. The patient is then positioned on the fracture table. All alfred prominences were well padded. The operative foot was placed in the fracture boot with abundant padding. The well leg was secured. We then positioned the lower extremities in a scissor fashion with a non-op leg flexed down to allow visualization with fluoroscopy which was confirmed before we prepped and draped. Surgical timeout was called and verified by all present. Antibiotics were infused, and equipment was available and functional. The procedure was initiated with a closed reduction maneuvers. Gentle in-line traction pulled the fracture out to length. The limb was then internally rotated to reduce the proximal femur. Flexion and adduction were used to adjust the reduction and allow access to the greater trochanter. The fracture pattern had some subtrochanteric extension so femoral shaft elevation was required to light up the femoral neck with the peritrochanteric region. We had adequate reduction prior to prepping and draping. The leg was then prepped and draped in usual sterile fashion. Surgical timeout was reconfirmed. We initiated the surgical internal fixation portion with finding the start point with the tip of the greater trochanter. Fluoroscopic guidance was used and a small poke hole was established. The start point was confirmed on fluoroscopy in AP and lateral planes and the pin was advanced using a mallet. An incision was made about the pin to allow access for the reamers. The pin was then advanced past the lesser trochanter, and its position was confirmed using AP and lateral fluoroscopy. With the wire across the fracture, still remained some sag through the trochanteric region. Using the protective sleeve, the opening reamer was advanced under power with fluoroscopic guidance over the guidepin while elevating the trochanteric region with manual pressure. The reduction wire was then advanced down the distal femur to the level of the superior pole of the patella. Measurement was taken from the tip of the trochanter down to the end of the guidewire, and the nail length was selected. Given the canal measurements, I opted to go 11 mm nail without the need for reaming of the diaphysis. An 11 mm nail was loaded onto the jig and advanced manually down the canal, while ensuring maintenance of the reduction on fluoroscopy. We then tapped it down into place until we achieve the good position for our cephalo-medullary screw. Femoral neck remained in flexion with respect to the shaft after the nail was put down. The peritrochanteric incision was extended. A heavy Garcia was then advanced over the proximal femoral neck. Fluoroscopy was used to visualize well I performed reduction with a Garcia to bring the neck out of flexion and lined up with the peritrochanteric region for the cephalomedullary screw. The Garcia was held to reduce this neck flexion during the screw placement The cannula was placed on the jig to allow positioning of the cephalo-medullary screw. The skin incision was made in the appropriate spot. The jig cannulas were then placed against the lateral cortex. The cephalo-medullary screw guidepin was advanced towards the femoral head. The center-center position was confirmed on fluoroscopy in AP and lateral planes. The pin placement was adjusted more anteriorly for center center targeting. The length of the screw was measured off the guide. The helical blade screw was then opened on the back table and prepared on the screwdriver. The lateral cortical opening drill, followed by the triple drill reamer for the helical blade was advanced under fluoroscopic guidance. The helical blade was advanced over the guidepin to appropriate position while holding the neck reduction. The helical blade was locked in rotation and then the traction was taken off. We had acceptable alignment of the fracture including that flexion of the neck that was reduced. Fluoroscopy confirmed maintenance of reduction and adequate position of the implant. The compression sleeve was then advanced against the lateral femur to improve the trochanteric-shaft reduction and compress the intertrochanteric region fracture. Attention was then directed distally to perform the interlock screws in using perfect confed[place] salish technique. 1 interlock screw was placed with a 5 mm diameter. The length was measured using a depth gauge, with fluoroscopic guidance. This completed the fixation. This completed the fixation of the fracture. Fluoroscopy was used in both AP a nd lateral planes to evaluate the entirety of the fracture and implant. Reduction and implant positions were acceptable. The wounds were then thoroughly irrigated with bulb syringe and normal saline. The deep fascial layer was approximated with 0 Vicryl suture. The dermal layer was approximated using 2-0 Vicryl suture. The final skin closure was completed with hyacinth. Wounds were dressed with sterile Xeroform, sterile gauze, and Tegaderms over ABDs. The patient tolerated procedure well, awoke from anesthesia without complication, was extubated in the operating room, and transferred to the PACU in stable condition. Disposition: The patient be weightbearing as tolerated. I recommended routine DVT prophylaxis consisting of oral aspirin, if tolerable. DVT prophylaxis should last 6 weeks. 24 hours of antibiotic prophylaxis should be continued. I attest to the content of the Intraoperative Record and any orders documented therein. Any exceptions are noted below.
--- NOTE | 2024-03-08 13:26 | XRay Report ---
RIGHT FEMUR 2 VIEWS CLINICAL HISTORY: Postoperative examination. FINDINGS: AP and crosstable lateral views of the right femur are compared to study dated 03/07/2024. T here has been intertrochanteric and intramedullary nail fixation of a comminuted intertrochanteric fr acture of the right femur. Near-anatomic alignment is restored. There is persistent medial displaceme nt of the lesser trochanter. A single cortical lag screw transfixes the distal end of the intramedull darya nail. No new fracture is identified. The hip and knee joints are grossly intact. Soft tissue chavo a, subcutaneous gas, and skin clips in the right thigh are expected postsurgical changes. The imaged right hemipelvis appears intact. IMPRESSION: Expected postoperative findings status post open reduction and internal fixation of a rig ht proximal femoral fracture as above. Electronically signed by: Julien Ledesma M.D. 03/08/2024 1:25 PM
[2024-03-08] MEDS: HYDROmorphone INJ 1 MG/ML SYRINGE IV PRN (13:44)
--- NOTE | 2024-03-08 14:29 | Anesthesiology Progress Note ---
Date of Service March 08, 2024 Anesthesia Post Procedure Vital Signs Vital Signs: Temp Pulse Pulse Pulse Resp BP BP 03/08/24 14:00 79 14 114/57 L 03/08/24 13:50 83 12 97/56 L 03/08/24 13:40 88 16 125/66 03/08/24 13:30 72 12 109/51 L 03/08/24 13:20 72 12 113/46 L 03/08/24 13:10 63 14 111/53 L 03/08/24 13:00 36.5 C 66 14 110/49 L 03/08/24 12:50 60 16 99/47 L 03/08/24 12:40 36.3 C L 60 12 101/50 L 03/08/24 08:58 105/57 L 03/08/24 08:13 03/08/24 07:36 36.7 C 61 16 90/50 L 03/08/24 06:34 36.8 C 62 16 90/49 L 03/08/24 00:27 61 98/61 L 03/07/24 23:09 87/67 L 03/07/24 21:02 36.7 C 61 12 85/50 L 03/07/24 20:37 03/07/24 20:37 03/07/24 17:36 36.6 C 69 18 101/57 L 03/07/24 17:30 36.6 C 69 16 101/57 L 03/07/24 16:45 60 15 130/41 L 03/07/24 16:12 67 19 03/07/24 16:01 108/75 03/07/24 16:01 108/75 03/07/24 16:00 65 16 03/07/24 15:33 61 20 03/07/24 15:31 114/87 03/07/24 15:27 63 18 03/07/24 15:06 62 16 90/56 L 03/07/24 14:45 60 21 84/43 L 03/07/24 14:27 63 18 104/53 L Pulse Ox Pulse Ox O2 Del Method O2 Del Method O2 Flow Rate O2 Flow Rate 03/08/24 14:00 97 Nasal Cannula 2 03/08/24 13:50 99 Nasal Cannula 2 03/08/24 13:40 95 Nasal Cannula 2 03/08/24 13:30 95 Nasal Cannula 2 03/08/24 13:20 95 Room Air 03/08/24 13:10 100 Room Air 03/08/24 13:00 95 Room Air 03/08/24 12:50 100 Oxymask 4 03/08/24 12:40 93 Oxymask 6 03/08/24 08:58 03/08/24 08:13 Nasal Cannula 03/08/24 07:36 99 Nasal Cannula 2 03/08/24 06:34 100 Nasal Cannula 2 03/08/24 00:27 100 Nasal Cannula 2 03/07/24 23:09 03/07/24 21:02 99 Nasal Cannula 2 03/07/24 20:37 Nasal Cannula 2 03/07/24 20:37 99 Nasal Cannula 2 03/07/24 17:36 97 Nasal Cannula 2 03/07/24 17:30 97 Nasal Cannula 2 03/07/24 16:45 100 03/07/24 16:12 90 03/07/24 16:01 03/07/24 16:01 03/07/24 16:00 100 03/07/24 15:33 100 03/07/24 15:31 03/07/24 15:27 94 03/07/24 15:06 98 03/07/24 14:45 100 03/07/24 14:27 Pain Intensity Right Arm: Pain Intensity: 1 Right Hip: Pain Intensity: 4 Transfer of Care Handoff Completed per policy Notes Mental Status: alert / awake / arousable and participated in evaluation Patient Amnestic to Procedure: Yes Nausea / Vomiting: adequately controlled Pain: adequately controlled Airway Patency, RR, SpO2: stable & adequate BP & HR: stable & adequate Hydration State: stable & adequate Anesthetic Complications: no major complications apparent and Pt Satisfied with anesthetic care
[2024-03-08] MEDS: SODIUM CHLORIDE 0.9% 1,000 ML IV SCH (15:18)
[2024-03-08] MEDS: ERGOCALCIFEROL 1250 MCG (50,000 UNITS) CAP PO SCH (15:46)
[2024-03-08] MEDS: ASPIRIN 81 MG ECTAB PO SCH (20:30)
[2024-03-08] MEDS: LEVOTHYROXINE SODIUM 100 MCG TABLET PO SCH (20:30)
[2024-03-08] MEDS: LORazepam 0.5 MG TAB PO STA (22:31)
[2024-03-09] MEDS: hydrOXYzine HCl 25 MG TAB PO STA (05:13)
[2024-03-09 05:46] LABS: Basophils # (auto) 0.03 K/uL (0.00-0.20); Basophils % (auto) 0.2 %; Eosinophils # (auto) 0.04 K/uL (0.00-0.50); Eosinophils % (auto) 0.2 %; Hematocrit (blood only) 22.6 % (37.0-47.0); Hemoglobin 7.2 g/dl (12.0-16.0); Immature Granulocytes # (auto) 0.13 K/uL (0.01-0.20); Immature Granulocytes % (auto) 0.8 %; Lymphocytes % (auto) 7.6 %; Mean Corpuscular Hemoglobin 31.3 pg (25.0-34.0); Mean Corpuscular Hgb Conc 31.9 g/dL (32.0-36.0); Mean Corpuscular Volume 98.3 fL (80.0-100.0); Monocytes # (auto) 2.03 K/uL (0.11-0.59); Monocytes % (auto) 11.9 %; Neutrophils # (auto) 13.57 K/uL (1.40-6.50); Neutrophils % (auto) 79.3 %; Platelet Count 186 K/uL (130-400); RDW Coefficient of Variation 14.2 % (11.5-14.5); RDW Standard Deviation 50.9 fL (36.4-46.3)
[2024-03-09 05:59] LABS: Albumin Globulin Ratio 1.4 (0.9-2); BUN Creatinine Ratio 20.4 (10-20); Bilirubin,Total 0.3 mg/dl (0.2-1.0); Calcium 8.7 mg/dl (8.6-10.3); Creatinine Clr Calc Pharmacy 25.3 ml/min; Est GFR (Non-African American) 30.2 ml/min; Globulin 2.2 gm/dl (2.5-4.0); Magnesium 2.1 mg/dl (1.7-2.4); Potassium 4.5 mmol/L (3.5-5.1); Total Protein 5.2 gm/dl (6.0-8.3)
[2024-03-09 06:06] LABS: Polychromasia 1+
[2024-03-09 06:09] LABS: Prothrombin Time 10.6 Seconds (9.0-12.0)
[2024-03-09] MEDS: MULTIVITAMIN TAB PO SCH (08:10)
[2024-03-09] MEDS ORDERED: SODIUM CHLORIDE 0.9% 250 ML IV PRN (09:37)
--- NOTE | 2024-03-09 13:07 | Orthopedic Progress Note ---
Date of Service March 09, 2024 Assessment & Plan (1) History of hip surgery: (2) Closed fracture of right proximal humerus: (3) Intertrochanteric fracture of right femur: Plan POD #1 status post right trochanteric fixation nail for displaced peritrochanteric femur fracture. Hospital day #2 proximal humerus fracture -No change in plan for the proximal humerus fracture. She should be nonweightbearing to the right upper extremity use a sling for comfort. Instructed to expect improvement in pain in 3-4 weeks. -For the right hip, she is weightbearing and range of motion as tolerated on that leg. I reassured her that PT will see which she can do cannot force her to walk. -Pain management per the primary team -Agree with transfusion considerations given the drop preoperatively and expected postoperative acute blood loss. Probably no benefit for TXA at this point. -VTE PPx: Per primary team. Aspirin is likely adequate. Disposition: In need of PT and OT evals for potential placement. The concomitant proximal humerus fracture will certainly inhibit her ability to a mbulate with assistive devices. Expect rehab needs. From an orthopedic perspective, we will continue to follow. Dressing should remain through at least tomorrow. Please [place] text myself or Flavia Cuevas PA-C for any orthopedic related questions. Subjective Reports continued, but expected pain. She was concerned that physical therapy would push her to get out of bed and walk today. I reiterated the process of weightbearing as tolerated. I reassured her. was at the bedside. We reviewed the techniques and implants. They were generally agreeable to the process and looking forward to neck steps. Review of Systems All systems reviewed & are unremarkable except as noted in HPI & below. Physical Exam RLE: The dressings are clean and dry and intact. There is no knee effusion. Positive DF/PF/EHL. Sensation grossly intact to light touch. 2+ DP/PT pulses Constitutional WD/WN, vitals as above no acute distress and not intoxicated appearing Respiratory normal respiratory effort; no labored breathing Cardiovascular Extremities: normal capillary refill Results & Data Results & Data Laboratory Results Laboratory Tests 03/07/24 03/08/24 03/09/24 Unknown : 05:24 WBC 11.14 H D 17.10 H Hct 37.3 27.2 L 03/09/24 05:24 WBC Hct 22.6 L Diagnostic Findings Postop x-rays showed no implant complications and acceptable alignment and implant placement. PG Care Time/CCT Total # of Minutes Spent Total Time Spent with Patient: Total time spent is greater than 50% in coordination of care (as documented) at patient's floor/unit and/or counseling patient: Coding Level of Care Code 23937 Post Operative Follow-Up Diagnoses History of hip surgery Z98.890 Closed fracture of right proximal humerus S42.201A Intertrochanteric fracture of right femur S72.141A
--- NOTE | 2024-03-09 15:19 | Hospitalist Progress Note ---
Date of Service March 09, 2024 Assessment & Plan (1) Intertrochanteric fracture of right femur: Plan: Postoperative day #1 after open reduction internal fixation with nailing of the right femur fracture. Appreciate orthopedic consultation and recommendations. Weightbearing as tolerated. Continue OT and PT while hospitalized. (2) Pathologic fracture: Plan: Right femur and right humerus due to underlying osteoporosis. Supportive care. Pain control measures. Vitamin D and calcium supplementation (3) Acute blood loss anemia: Plan: Blood transfusion todayMarch 09. Monitor serial H&H. (4) Closed fracture of right proximal humerus: Plan: Nonoperative at this time. Sling in place. Orthopedic consultation and recommendations appreciated. Pain control measures (5) Fall: Plan: Mechanical. OT and PT. She will need rehab placement at discharge (6) Bipolar disorder in full remission: Plan: Stable. Continue current medical management (7) Hypothyroidism: Plan: Stable. Continue levothyroxine replacement therapy Plan SNF or IPR at discharge. Blood transfusion today, March 09. Admission and Anticipated Discharge Date Admission Date: March 07, 2024 Subjective Alert and oriented. She looks pale. Hemoglobin is down to 7.2 consistent with acute blood loss anemia. 2 units packed red blood cells ordered. Creatinine is creeping up to 1.5. Will monitor intake and output and follow. Appreciate orthopedic note. Postoperative day #1 after open reduction internal fixation with nailing of the right femur fracture. Right humerus fracture is being treated with sling and nonweightbearing status. Review of Systems 2 Review of Systems: Constitutionalno fever or chills. Pallor noted ENTno blurred vision, no double vision, no epistaxis, no sore throat Respiratoryno cough, no wheezing, no shortness of breath Cardiacno palpitations, no chest pain, no syncope Luisa nausea, vomiting, diarrhea, melena, hematochezia GUno urinary retention, no urinary incontinence, no dysuria, no hematuria Musculoskeletalpostoperative right upper leg discomfort and right proximal arm discomfort Skinno bruising, no rashes, no pruritus Neurono isolated weakness, no paresthesia Psychno depression, no anxiety Physical Exam 2 Physical Exam: General-alert and oriented x3, no fever, no chills. Pallor noted HEENT-head atraumatic and normocephalic, pupils equal and reactive to light, extraocular muscles intact Neck-no lymphadenopathy or thyromegaly, trachea midline Chest-clear to auscultation. No rales, wheezing or rhonchi Cardiac-regular rate and rhythm, normal S1 and S2 Abdomen-normal bowel sounds, no hepatosplenomegaly Extremities-right hip surgical site is unremarkable. No peripheral edema Neuro-cranial nerves II through XII intact, motor and sensory function within normal limits, strength symmetrical, no focal deficits Psych-normal affect, normal mood Results & Data Results & Data Vital Signs (Past 12 Hours) Vital Signs Temp Pulse Pulse Resp BP BP Pulse Ox 03/09/24 15:03 37.0 C 68 16 95/53 L 03/09/24 14:05 37.0 C 63 16 108/43 L 95 03/09/24 13:36 36.7 C 61 16 94/51 L 97 03/09/24 13:05 36.6 C 67 16 113/50 L 03/09/24 12:53 37.0 C 75 16 111/46 L 95 03/09/24 12:35 36.8 C 51 L 16 123/71 98 03/09/24 12:20 36.6 C 75 16 103/58 L 03/09/24 12:03 36.6 C 78 16 109/62 99 03/09/24 08:50 03/09/24 07:38 36.9 C 82 18 150/66 H 98 03/09/24 04:31 83 38 H 134/65 97 O2 Del Method 03/09/24 15:03 03/09/24 14:05 03/09/24 13:36 03/09/24 13:05 03/09/24 12:53 03/09/24 12:35 03/09/24 12:20 03/09/24 12:03 03/09/24 08:50 Room Air 03/09/24 07:38 Room Air 03/09/24 04:31 Room Air Laboratory Results 03/09/24 05:24 03/09/24 05:24 PG Care Time/CCT Total # of Minutes Spent Total Time Spent with Patient: Total time spent is greater than 50% in coordination of care (as documented) at patient's floor/unit and/or counseling patient: Coding Level of Care Code 02101 SUB INP/OBS CARE 3/50MIN Diagnoses Intertrochanteric fracture of right femur S72.141A Pathologic fracture M84.40XA Acute blood loss anemia D62 Closed fracture of right proximal humerus S42.201A Fall, subsequent encounter W19.XXXD Encounter type: subsequent encounter Bipolar disorder in full remission, most recent episode unspecified type F31.70 Most recent bipolar episode type: unspecified type Hypothyroidism E03.9 (5) Fall Encounter type: subsequent encounter Qualified Code(s): W19.XXXD - Unspecified fall, subsequent encounter (6) Bipolar disorder in full remission Most recent bipolar episode type: unspecified type Qualified Code(s): F31.70 - Bipolar disorder, currently in remission, most recent episode unspecified
[2024-03-09] MEDS: oxyCODONE HCL IR 5 MG TAB (IMMEDIATE RELEASE) PO STA (15:26)
[2024-03-09] MEDS: ACETAMINOPHEN 500 MG TAB PO SCH (16:26)
[2024-03-09 21:31] LABS: Hemoglobin 9.6 g/dl (12.0-16.0)
--- NOTE | 2024-03-10 00:08 | Ultrasound Report ---
Exam(s): US VENOUS LEFT UPPER EXTREMITY EXAM: US Duplex Left Upper Extremity Veins CLINICAL HISTORY: Reason for exam: edema. TECHNIQUE: Real-time duplex ultrasound scan of the left upper extremity veins integrating B-mode two-dimensional vascular structure, Doppler spectral analysis, color flow Doppler imaging and compression. COMPARISON: None FINDINGS: Deep veins: Unremarkable. No DVT in the internal jugular, subclavian, axillary, or brachial veins. The veins demonstrate normal color flow, are normally compressible, with normal phasic flow and/or augmentation response. Superficial veins: Unremarkable. No thrombus in the visualized basilic and cephalic veins. Soft tissues: No acute findings. Tubes, lines and devices: Probable pacer wires seen in the left subclavian vein. IMPRESSION: No venous thrombosis in the left upper extremity. Electronically signed by: Andres Jean Baptiste M.D. 03/10/24 00:08 AM
[2024-03-10] MEDS: oxyCODONE HCL IR 5 MG TAB (IMMEDIATE RELEASE) PO PRN (04:08)
[2024-03-10 07:01] LABS: Basophils # (auto) 0.03 K/uL (0.00-0.20); Basophils % (auto) 0.2 %; Eosinophils # (auto) 0.26 K/uL (0.00-0.50); Eosinophils % (auto) 1.8 %; Hematocrit (blood only) 27.7 % (37.0-47.0); Hemoglobin 9.2 g/dl (12.0-16.0); Immature Granulocytes # (auto) 0.24 K/uL (0.01-0.20); Immature Granulocytes % (auto) 1.7 %; Lymphocytes # (auto) 1.02 K/uL (1.20-3.40); Mean Corpuscular Hemoglobin 30.6 pg (25.0-34.0); Mean Corpuscular Hgb Conc 33.2 g/dL (32.0-36.0); Mean Platelet Volume 9.7 fL (9.4-12.4); Monocytes # (auto) 1.61 K/uL (0.11-0.59); Monocytes % (auto) 11.1 %; Neutrophils # (auto) 11.37 K/uL (1.40-6.50); Neutrophils % (auto) 78.2 %; Platelet Count 151 K/uL (130-400); RDW Coefficient of Variation 14.7 % (11.5-14.5); RDW Standard Deviation 49.2 fL (36.4-46.3); Red Blood Count 3.01 M/uL (4.20-5.40); White Blood Count 14.53 K/ul (4.8-10.8)
[2024-03-10 07:19] LABS: BUN Creatinine Ratio 28.3 (10-20); Calcium 8.9 mg/dl (8.6-10.3); Creatinine Clr Calc Pharmacy 40.2 ml/min; Est GFR (African American) 61.1 ml/min; Est GFR (Non-African American) 52.7 ml/min; Potassium 4.2 mmol/L (3.5-5.1)
--- NOTE | 2024-03-10 16:04 | Hospitalist Progress Note ---
Date of Service March 10, 2024 Assessment & Plan (1) Intertrochanteric fracture of right femur: Plan: Postoperative day #2 after open reduction internal fixation with nailing of the right femur fracture. Appreciate orthopedic consultation and recommendations. Weightbearing as tolerated. Continue OT and PT while hospitalized. (2) Pathologic fracture: Plan: Right femur and right humerus due to underlying osteoporosis. Supportive care. Pain control measures. Vitamin D and calcium supplementation (3) Acute blood loss anemia: Plan: Blood transfusion completed on March 09. Hemoglobin is much improved and the patient feels much better. Monitor serial H&H. (4) Closed fracture of right proximal humerus: Plan: Nonoperative at this time. Sling in place. Orthopedic consultation and recommendations appreciated. Pain control measures (5) Fall: Plan: Mechanical. Continue OT and PT. She will need rehab placement at discharge (6) Bipolar disorder in full remission: Plan: Stable. Continue current medical management (7) Hypothyroidism: Plan: Stable. Continue levothyroxine replacement therapy Plan Hopeful discharge to [facility] tomMarch 11 Admission and Anticipated Discharge Date Admission Date: March 07, 2024 Subjective Alert and oriented. Much improved overall after blood transfusion. Hemoglobin is now 9.2. Creatinine is now normalized down to 0.9 after transfusion. Postoperative day #2 after open reduction internal fixation with nailing of the right femur fracture. Right arm is in a sling and will not need surgical intervention at this point. She is medically stable and can go to [facility] tomMarch 11, if arrangements are finalized. Venous Doppler evaluation left upper extremity negative for DVT. She has some bruising of the dorsal aspect of the left hand and had some associated swelling probably from venous bleeding. Swelling has resolved and bruising will eventually dissipate Review of Systems 2 Review of Systems: Constitutionalno fever or chills. Pallor noted ENTno blurred vision, no double vision, no epistaxis, no sore throat Respiratoryno cough, no wheezing, no shortness of breath Cardiacno palpitations, no chest pain, no syncope Luisa nausea, vomiting, diarrhea, melena, hematochezia GUno urinary retention, no urinary incontinence, no dysuria, no hematuria Musculoskeletalpostoperative right upper leg discomfort and right proximal arm discomfort Skinright femur surgical site is unremarkable. Neurono isolated weakness, no paresthesia Psychno depression, no anxiety Physical Exam 2 Physical Exam: General-alert and oriented x3, no fever, no chills. Pallor noted HEENT-head atraumatic and normocephalic, pupils equal and reactive to light, extraocular muscles intact Neck-no lymphadenopathy or thyromegaly, trachea midline Chest-clear to auscultation. No rales, wheezing or rhonchi Cardiac-regular rate and rhythm, normal S1 and S2 Abdomen-normal bowel sounds, no hepatosplenomegaly Extremities-right femur surgical site is unremarkable. No peripheral edema Neuro-cranial nerves II through XII intact, motor and sensory function within normal limits, strength symmetrical, no focal deficits Psych-normal affect, normal mood Results & Data Results & Data Vital Signs (Past 12 Hours) Vital Signs Temp Pulse Resp BP Pulse Ox O2 Del Method 03/10/24 13:31 35 C L 64 18 146/79 H 96 Room Air 03/10/24 08:45 Room Air 03/10/24 07:55 36.8 C 68 16 126/55 L 96 Room Air Laboratory Results 03/10/24 06:38 03/10/24 06:38 PG Care Time/CCT Total # of Minutes Spent Total Time Spent with Patient: Total time spent is greater than 50% in coordination of care (as documented) at patient's floor/unit and/or counseling patient: Coding Level of Care Code 08050 SUB INP/OBS CARE 2/35MIN Diagnoses Intertrochanteric fracture of right femur S72.141A Pathologic fracture M84.40XA Acute blood loss anemia D62 Closed fracture of right proximal humerus S42.201A Fall, subsequent encounter W19.XXXD Encounter type: subsequent encounter Bipolar disorder in full remission, most recent episode unspecified type F31.70 Most recent bipolar episode type: unspecified type Hypothyroidism E03.9 (5) Fall Encounter type: subsequent encounter Qualified Code(s): W19.XXXD - Unspecified fall, subsequent encounter (6) Bipolar disorder in full remission Most recent bipolar episode type: unspecified type Qualified Code(s): F31.70 - Bipolar disorder, currently in remission, most recent episode unspecified
[2024-03-11] MEDS: LORazepam 2 MG/1 ML VIAL IV STA (03:58)
[2024-03-11 07:38] LABS: Basophils # (auto) 0.03 K/uL (0.00-0.20); Basophils % (auto) 0.2 %; Eosinophils # (auto) 0.39 K/uL (0.00-0.50); Eosinophils % (auto) 2.8 %; Hematocrit (blood only) 28.7 % (37.0-47.0); Hemoglobin 9.3 g/dl (12.0-16.0); Immature Granulocytes # (auto) 0.15 K/uL (0.01-0.20); Immature Granulocytes % (auto) 1.1 %; Lymphocytes # (auto) 0.72 K/uL (1.20-3.40); Lymphocytes % (auto) 5.2 %; Mean Corpuscular Hemoglobin 30.7 pg (25.0-34.0); Mean Corpuscular Hgb Conc 32.4 g/dL (32.0-36.0); Mean Corpuscular Volume 94.7 fL (80.0-100.0); Monocytes # (auto) 1.25 K/uL (0.11-0.59); Neutrophils # (auto) 11.41 K/uL (1.40-6.50); Neutrophils % (auto) 81.7 %; Platelet Count 192 K/uL (130-400); RDW Coefficient of Variation 14.9 % (11.5-14.5); RDW Standard Deviation 51.2 fL (36.4-46.3); Red Blood Count 3.03 M/uL (4.20-5.40); White Blood Count 13.95 K/ul (4.8-10.8)
[2024-03-11 07:53] LABS: BUN Creatinine Ratio 30.2 (10-20); Calcium 9.3 mg/dl (8.6-10.3); Creatinine Clr Calc Pharmacy 48.2 ml/min; Est GFR (African American) 72.4 ml/min; Est GFR (Non-African American) 62.5 ml/min; Potassium 4.1 mmol/L (3.5-5.1)
--- NOTE | 2024-03-11 15:40 | Hospitalist Progress Note ---
Date of Service March 11, 2024 Assessment & Plan (1) Intertrochanteric fracture of right femur: Plan: Postoperative day #3 after open reduction internal fixation with nailing of the right femur fracture. Appreciate orthopedic consultation and recommendations. Weightbearing as tolerated. Continue OT and PT while hospitalized. (2) Closed fracture of right proximal humerus: Plan: Nonoperative management at this time. Sling in place. Orthopedic consultation and recommendations appreciated. Pain control measures (3) Pathologic fracture: Plan: Right femur and right humerus due to underlying osteoporosis. Right femur fracture repaired by orthopedics. Right arm is in a sling with nonoperative management. Supportive care. Pain control measures. Vitamin D and calcium supplementation (4) Acute blood loss anemia: Plan: Blood transfusion completed on March 09. Hemoglobin is much improved and the patient feels much better. Monitor serial H&H. Hemoglobin is now stable (5) Fall: Plan: Mechanical. Continue OT and PT. She will need rehab placement at discharge (6) Bipolar disorder in full remission: Plan: Stable. Continue current medical management (7) Hypothyroidism: Plan: Stable. Continue levothyroxine replacement therapy Plan Anticipate discharge to [facility] when bed is available Admission and Anticipated Discharge Date Admission Date: March 07, 2024 Subjective Alert and pleasant. She states she is not sleeping well. Melatonin has been added at bedtime. Awaiting eventual discharge to [facility] when a bed is available. Review of Systems 2 Review of Systems: Constitutionalno fever or chills. Pallor noted ENTno blurred vision, no double vision, no epistaxis, no sore throat Respiratoryno cough, no wheezing, no shortness of breath Cardiacno palpitations, no chest pain, no syncope Luisa nausea, vomiting, diarrhea, melena, hematochezia GUno urinary retention, no urinary incontinence, no dysuria, no hematuria Musculoskeletalpostoperative right upper leg discomfort and right proximal arm discomfort Skinright femur surgical site is unremarkable. Neurono isolated weakness, no paresthesia Psychno depression, no anxiety Physical Exam 2 Physical Exam: General-alert and oriented x3, no fever, no chills HEENT-head atraumatic and normocephalic, pupils equal and reactive to light, extraocular muscles intact Neck-no lymphadenopathy or thyromegaly, trachea midline Chest-clear to auscultation. No rales, wheezing or rhonchi Cardiac-regular rate and rhythm, normal S1 and S2 Abdomen-normal bowel sounds, no hepatosplenomegaly Extremities-right femur surgical site unremarkable. Right arm is in a sling Neuro-cranial nerves II through XII intact, motor and sensory function within normal limits, strength symmetrical, no focal deficits Psych-normal affect, normal mood Results & Data Results & Data Vital Signs (Past 12 Hours) Vital Signs Temp Pulse Resp BP Pulse Ox O2 Del Method 03/11/24 15:33 36.4 C L 64 91 H 128/78 91 Room Air 03/11/24 07:00 36.8 C 73 18 137/73 94 Room Air Laboratory Results 03/11/24 06:52 03/11/24 06:52 PG Care Time/CCT Total # of Minutes Spent Total Time Spent with Patient: Total time spent is greater than 50% in coordination of care (as documented) at patient's floor/unit and/or counseling patient: Coding Level of Care Code 66232 SUB INP/OBS CARE 2/35MIN Diagnoses Intertrochanteric fracture of right femur S72.141A Closed fracture of right proximal humerus S42.201A Pathologic fracture M84.40XA Acute blood loss anemia D62 Fall, subsequent encounter W19.XXXD Encounter type: subsequent encounter Bipolar disorder in full remission, most recent episode unspecified type F31.70 Most recent bipolar episode type: unspecified type Hypothyroidism E03.9 (5) Fall Encounter type: subsequent encounter Qualified Code(s): W19.XXXD - Unspecified fall, subsequent encounter (6) Bipolar disorder in full remission Most recent bipolar episode type: unspecified type Qualified Code(s): F31.70 - Bipolar disorder, currently in remission, most recent episode unspecified
[2024-03-11] MEDS: MELATONIN 3 MG TAB PO SCH (20:37)
[2024-03-12 07:09] LABS: Basophils # (auto) 0.02 K/uL (0.00-0.20); Basophils % (auto) 0.2 %; Eosinophils # (auto) 0.35 K/uL (0.00-0.50); Hematocrit (blood only) 28.5 % (37.0-47.0); Hemoglobin 9.1 g/dl (12.0-16.0); Immature Granulocytes # (auto) 0.05 K/uL (0.01-0.20); Immature Granulocytes % (auto) 0.4 %; Lymphocytes # (auto) 0.57 K/uL (1.20-3.40); Lymphocytes % (auto) 4.8 %; Mean Corpuscular Hemoglobin 30.5 pg (25.0-34.0); Mean Corpuscular Hgb Conc 31.9 g/dL (32.0-36.0); Mean Corpuscular Volume 95.6 fL (80.0-100.0); Monocytes # (auto) 1.03 K/uL (0.11-0.59); Monocytes % (auto) 8.7 %; Neutrophils # (auto) 9.81 K/uL (1.40-6.50); Neutrophils % (auto) 82.9 %; Platelet Count 209 K/uL (130-400); RDW Coefficient of Variation 14.8 % (11.5-14.5); Red Blood Count 2.98 M/uL (4.20-5.40); White Blood Count 11.83 K/ul (4.8-10.8)
[2024-03-12 07:27] LABS: BUN Creatinine Ratio 35.8 (10-20); Calcium 9.6 mg/dl (8.6-10.3); Creatinine Clr Calc Pharmacy 51.2 ml/min; Potassium 4.1 mmol/L (3.5-5.1)
[2024-03-12 07:58] VITALS: RESP 16; O2SAT 97
--- NOTE | 2024-03-12 11:44 | Orthopedic Progress Note ---
Date of Service March 12, 2024 Assessment & Plan (1) History of hip surgery: (2) Closed fracture of right proximal humerus: (3) Intertrochanteric fracture of right femur: Plan POD #4 status post right trochanteric fixation nail for displaced peritrochanteric femur fracture. Also with right proximal humerus fracture treated with sling immobilization. -No change in plan of care. -Right upper extremity nonweightbearing for 6 weeks. Will continue management as an outpatient. Sling for comfort. She can remove for hygiene and in bed when comfortable. -For the right hip, she can be weightbearing and range of motion as tolerated and continue PT/OT -Significant improvement overall with transfusion and now has a stable hematocrit -VTE PPx: Per primary team. Aspirin is likely adequate. Disposition: Orthopedically stable for transition to next level of care when medically ready. Contact me or Flavia Cuevas PA-C via [employer] text with any additional questions. Subjective Reports improving pain today than the previous postoperative days. Still having trouble with getting up and walking without max assist. She is understanding she will need acute rehab. Review of Systems All systems reviewed & are unremarkable except as noted in HPI & below. Physical Exam Right lower extremity: The dressings are clean and dry and intact. The appear to be the surgical dressings. Will have them change today. The thigh is soft and compressible. Neurovascular intact distally. Results & Data Results & Data Laboratory Results Laboratory Tests 03/09/24 03/09/24 03/09/24 05:24 05:24 05:24 WBC Hgb 7.2 L Hct 22.6 L Creatinine 1.57 H Total Protein Albumin 03/09/24 03/09/24 03/10/24 05:24 21:04 06:38 WBC Hgb 9.2 L Hct 29.0 L Creatinine Total Protein 5.2 L Albumin 3.0 L 03/10/24 03/11/24 03/12/24 06:38 06:52 06:27 WBC 11.83 H Hgb Hct 27.7 L 28.7 L 28.5 L Creatinine 0.99 D Total Protein Albumin 03/12/24 06:27 WBC Hgb Hct Creatinine 0.81 Total Protein Albumin Diagnostic Findings . PG Care Time/CCT Total # of Minutes Spent Total Time Spent with Patient: Total time spent is greater than 50% in coordination of care (as documented) at patient's floor/unit and/or counseling patient: Coding Level of Care Code 43637 Post Operative Follow-Up Diagnoses History of hip surgery Z98.890 Closed fracture of right proximal humerus S42.201A Intertrochanteric fracture of right femur S72.141A
--- NOTE | 2024-03-12 12:20 | Discharge Summary ---
Discharge Summary Date of Service March 12, 2024 Principal Dx & Hospital Course #1 = Principal Diagnosis (1) Intertrochanteric fracture of right femur: Postoperative day #4 after open reduction internal fixation with nailing of the right femur fracture. Appreciate orthopedic consultation and recommendations. Weightbearing as tolerated. Continue OT and PT while hospitalized. (2) Closed fracture of right proximal humerus: Nonoperative management at this time. Sling in place. Orthopedic consultation and recommendations appreciated. Pain control measures (3) Pathologic fracture: Right femur and right humerus due to underlying osteoporosis. Right femur fracture repaired by orthopedics. Right arm is in a sling with nonoperative management. Supportive care. Pain control measures. Vitamin D and calcium supplementation (4) Acute blood loss anemia: Blood transfusion completed on March 09. Hemoglobin is much improved and the patient feels much better. Monitor serial H&H. Hemoglobin is now stable (5) Fall: Mechanical. Continue OT and PT. She will need rehab placement at discharge (6) Bipolar disorder in full remission: Stable. Continue current medical management (7) Hypothyroidism: Stable. Continue levothyroxine replacement therapy Plan [facility]charge to [facility] todayMarch 12 Admission HPI Per Admitting Provider Sonai is an 84-year-old female with a past medical history significant for bipolar disorder (on lithium), hypothyroidism, sinus node dysfunction status post cardiac pacemaker placement, stage III CKD who presented [facility] ED on 03/07/2024 via ALS after sustaining a fall while walking on a wooden bridge at [facility] this morning. Patient reportedly slipped and fell on her right side with resultant right shoulder and hip pain. Remained stable in the ED. Labs were significant for a leukocytosis of 21 with neutrophil predominance of 17, and UA with 1+ ketones, trace blood, 6-10 RBC, 3 5 hyaline cast, but otherwise unremarkable. Chest x-ray was read as cardiomegaly and cardiac pacemaker without radiographic evidence of congestive failure. No airspace consolidation or large pleural effusion is identified. Right humeral head/neck fracture as above. X-ray of the right shoulder noted an impacted and comminuted right humeral head/neck fracture. X-ray of the right hip/pelvis noted an intertrochanteric fracture of the right proximal femur which was noted to be impacted and comminuted. The ED spoke with orthopedics who confirmed the patient could remain at facility and will likely undergo surgical repair of the tomorrow. Recommended sling placement of the right upper arm for her right humeral neck fracture. Prior to admission the patient was given 1 g IV Tylenol, 2 doses of 0.5 mg IV Dilaudid. Patient is lying in bed in mild distress due to right hip pain at the time of exam with her and daughter bedside, history is obtained from all. The patient and her confirmed that they were walking in [facility] this morning, the patient had been in her normal state of health when she woke this morning. Her explains that they were walking on the wooden bridge at [facility] on a decline when he slipped due to the wooden bridge being slick along with having wet leaves on top. He excellently grabbed the while falling causing her to fall as well, they confirmed that she landed on her right shoulder/hip. She denies hitting her head or losing consciousness. Since the fall she has been experiencing severe right hip and right shoulder pain. Denies head, neck, thoracic/lumbar back pain, left upper or lower extremity pain. No new paresthesias, changes in vision, hearing, taste, smell, chest pain, shortness of breath, abdominal pain, nausea/vomiting, dysuria/hematuria, diarrhea, lower extremity swelling. Understands that she will require surgical repair of the right hip but will likely only require a sling for the right hu meral neck fracture. Confirms she had her a.m. doses of medications and is not on anticoagulation. She is a full code and want her and daughter to make medical decisions for her if she cannot make them herself. Please refer to Dr. Yi's attestation for any changes to the treatment plan Discharge Exam General-alert and oriented x3, no fever, no chills HEENT-head atraumatic and normocephalic, pupils equal and reactive to light, extraocular muscles intact Neck-no lymphadenopathy or thyromegaly, trachea midline Chest-clear to auscultation. No rales, wheezing or rhonchi Cardiac-regular rate and rhythm, normal S1 and S2 Abdomen-normal bowel sounds, no hepatosplenomegaly Extremities-right femur surgical site unremarkable. Right arm is in a sling Neuro-cranial nerves II through XII intact, motor and sensory function within normal limits, strength symmetrical, no focal deficits Psych-normal affect, normal mood Discharge Plan Discharge Items Patient Disposition: Transfer Inpatient Rehab Fac Reason For Visit: FALL, RIGHT HIP AND RIGHT SHOULDER FRACTURES Discharge Diagnosis: Mechanical fall, right femur fracture, right humerus fracture. Status post open reduction internal fixation with long nail of right femur Activity: Per Instructions section Non-emergency contact: Primary Care Provider and Surgeon Call non-emergency contact if: you have any medication questions and your symptoms worsen Follow-up/Referrals: Marcin Noel MD [Primary Care Provider] - Diet: Regular and Heart Healthy Addtl Attending Provider Instructions: Wear right arm in a sling until further notice. Nonweightbearing right arm. Weightbearing as tolerated right leg. Pending Studies at Discharge: No Stand-Alone Forms: [facility] Skilled Items Patient informed of condition?: Yes DNR: No Discharge Level of Care: Acute rehab Communicable Disease: No Discharge Prognosis: Improving Lines: None Urinary Catheter: No Medications and DC Order Prescriptions: New calcium carb, citrate-vit D3 600 mg-12.5 mcg (500 unit) tablet extended release 1 tab PO BID Qty: 1 0RF aspirin 81 mg Tablet,Delayed Release (Dr/Ec) 81 mg PO BID Qty: 0 0RF oxycodone 5 mg Tablet 5 mg PO Q4H PRNQty: 0 0RF melatonin 3 mg Tablet 6 mg PO HS Qty: 0 0RF Continued ipratropium bromide 21 mcg (0.03 %) spray,non-aerosol 2 spray intranasal TID PRN (Reason: runny nose) Qty: 30 11RF Rx Instructions: administer into each nostril multivitamin [Multi-Vitamin] Tablet 1 tab PO DAILY Nasal [place] 1 spray intranasal DIRECTED Rx Instructions: Per pt, she uses two nasal sprays but doesn't know the name. Only ipratropium spray has a fill history available lithium carbonate 150 mg capsule 150 mg PO HS levothyroxine 100 mcg tablet 100 mcg PO UD Rx Instructions: recently changed from daily to 6 times a week. Takes at night. lithium carbonate 300 mg capsule 300 mg PO HS gabapentin 100 mg capsule 200 mg PO UD Rx Instructions: per pt, she takes once or twice a week at night ergocalciferol (vitamin D2) [Vitamin D2] 1,250 mcg (50,000 unit) capsule 1,250 mcg PO UD Rx Instructions: per pt, she isnt good about taking the medication like she should Discharge Orders: Discharge Order (Routine); Ordered 03/12/24 Ordered By: Jose C Sheriff Admission Data Admit Date/Time: 03/07/24 12:52 Attending Provider: Jose C Sheriff Admit Provider: Noah Russo Primary Care Provider: Marcin Noel Other Providers: Harleen Meza; Neisha Lawson; Verna Abdul; Jerri Ayala; Enrique Hua; Low Contreras; Javier Sanchez; Kris Schaefer; Danielle Schaefer; Gregory Silver; Rosa Isela Phillips; Reji Padron; Will Galvin; Aston Lynn; Jose Angel Caraballo; Annabelle Thakkar; Hal Ochoa; Ct Ochoa; Kenn Escobar; Flavia Olivo; Zachary Bauman; Melissa Calvillo; Randi Mixon; Travis Willson; Sonia Fernandez; Soledad Jones; Nely Abdul; Winsome Bone; Mo Bone V; Cruz Zamorano; Neisha Mcclellan; Paul Desouza; Dede Adan; Mo Lorenzana; Brayden Thakkar; Eduard Flores; Jaylin Reilly; Mo Quesada; Albino Nelson; Melba Hidalgo; Julien Hernández; Ally Welch; Bhumi Lawrence; Diony Gardner; Piter Caraballo; Sylvia Segovia; Elan Perkins; Selvin Smalls; Steven Hampton; Enrique Ohara Jr; Lula Zavala; Elsy Chatman AErnie; Catina Dolan; Travis Christensen; Kris Spencer; Lillie Velásquez; Elsy Lara AErnie; Chi Garcia; Pranav Wright; Marcin Ceja; Guillermo Carver; Ayse Garrett; Leda Foster; Tiff Moore; Geno Hendrix; Cinthya Ahuja; Elli Monet; Trever Camacho Jr; Maci Avendano; Rashid Wiseman; Noah Russo; [facility] Hospital Stay Data Consultations 03/07/24 12:52 Consult Anesthesiology Routine 03/07/24 12:53 Consult Orthopedic Surgery Routine 03/07/24 12:57 ED Decision to Admit Stat Procedures Performed Operation Date: 03/08/24 09:30 Actual Procedures p Right Long Troch Nail(Right) - Rashid Wiseman MD Diagnostic Imagining Performed 03/08/24 FL hip RT 2-3V Routine 03/09/24 17:41 US arm [US venous doppler UE LT] Urgent Pending Results Patient Have Any Pending Studies at Discharge: No Discharge Instructions Given to Patient (Per Discharging Provider) Wear right arm in a sling until further notice. Nonweightbearing right arm. Weightbearing as tolerated right leg. Total Time Total Time Spent Total Time Spent (In Minutes): 45 minutes Coding Level of Care Code 62909 INP/OBS DISCH >30 MIN Diagnoses Intertrochanteric fracture of right femur S72.141A Closed fracture of right proximal humerus S42.201A Pathologic fracture M84.40XA Acute blood loss anemia D62 Fall, subsequent encounter W19.XXXD Encounter type: subsequent encounter Bipolar disorder in full remission, most recent episode unspecified type F31.70 Most recent bipolar episode type: unspecified type Hypothyroidism E03.9
[2024-03-12 14:57] VITALS: BP 135/60; PULSE 69; TEMP 98.4
== END 2024-03-12 17:00 | DRG 481 ==
LOC: ED 11:01 → 3N 12:52 → SUATTDRO 12:52 → 3N 16:51

== ENCOUNTER 2024-07-02 10:26 | Inpatient (IN) ==
--- NOTE | 2024-07-02 10:53 | Emergency Department Note ---
Impression & Plan Hypercalcemia ADMIT ED Provider Note HPI: History obtained from patient and patient's at the bedside The patient is a 84-year-old female who presents the emergency department with concern for recent elevated calcium level on her outpatient lab work. Patient has been home for the past several months after a prolonged stay at an inpatient rehab facility for lower extremity fracture. Patient's at the bedside states that she has not been eating very much, she has been losing weight, her recent outpatient lab work showed "a critically high calcium" and therefore they were sent to the ER for further evaluation. On arrival here to the ED the patient is frail-appearing, her mucous membranes are dry, she is otherwise hemodynamically stable. She is saturating well on room air on arrival, blood pressure stable on arrival. ROS: - Per HPI Differential Diagnosis: Hypercalcemia of malignancy, hyperparathyroidism, acute dehydration/acute kidney injury, arrhythmia, amongst other potential pathologies. *Outpatient medications and allergy history reviewed. 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 Lab work shows no leukocytosis, hemoglobin is stable at 11.2, platelet count is normal, CMP does not show any evidence of any critical findings, creatinine is mildly elevated at 1.72, BUN is 34, calcium is noted to be elevated at 12.1. Patient was given IV fluids here in the ED, chest x-ray does not show any obvious pathology per my interpretation. Patient will require admission for further investigation of her new onset hypercalcemia. Case was discussed with the on-call hospitalist, Dr. Alejandro, the patient was placed for admission in stable condition, patient and her were in agreement to this plan. Consultants/Discussions held with other healthcare providers: -Hospitalist, Dr. Alejandro Disposition discussion held by myself with: -Patient and at bedside Diagnosis: 1. Hypercalcemia, acute 2. Recent unintentional weight loss, acute 3. Elevated creatinine/acute kidney injury 4. Elevated BUN, acute Disposition: Admission Hal Brian DO Emergency Medicine Past Med/Surg History Problem List (Updated 07/02/24 @ 15:04 by Hal Brian DO) Hypercalcemia (Acute) GUY (acute kidney injury) Hypercalcemia Anemia Anxiety Malnutrition Acute blood loss anemia Pathologic fracture (03/07/24) from a fall Fracture of humeral head (Acute 03/07/24) Impacted and comminuted right humeral head/neck fracture from a fall Closed fracture of right proximal humerus (03/07/24) Impacted and comminuted right humeral head/neck fracture from a fall Intertrochanteric fracture of right femur (03/07/24) from a fall Dehydration Vasomotor rhinitis Chronic kidney disease (CKD) stage G3a/A1, moderately decreased glomerular filtration rate (GFR) between 45-59 mL/min/1.73 square meter and albuminuria creatinine ratio less than 30 mg/g COVID Hand pain, right Abnormality of gait due to impairment of balance Wrist pain, right Rhinorrhea Chronic rhinitis Carpal tunnel syndrome of right wrist Post herpetic neuralgia Osteoporosis Fall Open fracture of right radius (Acute 10/05/20) distal right radial fracture from a fall Fracture of distal end of right ulna (Acute 10/05/20) Displaced fracture of the right ulnar styloid from a fall Cardiac pacemaker Sinus node dysfunction Medical History Bipolar I disorder, single manic episode Arthritis Internal hemorrhoids Diverticulosis Surgical History History of breast lump removal H/O wrist surgery R wrist Family History Mother Breast cancer Denies family history of Ovarian cancer Prostate cancer Diabetes Myocardial infarction Colorectal cancer Social History Smoking Status: Never smoker Second Hand Exposure: No; Do You Dip or Chew Tobacco: No; Hx Alcohol Use: No Hx Substance Use: No Preferred Language: Upper Sorbian Communication Ability: Effective Visual Impairment: Limited Hearing Ability: Normal Tappet Adjuster Required: No Beliefs That Will Affect Care: None marital status: Current Living Situation: Spouse 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 Verified 07/02/24 09:30 Home Meds Home Medications Medication Instructions Recorded Confirmed ergocalciferol (vitamin D2) 1,250 1,250 mcg PO UD 03/07/24 07/02/24 mcg (50,000 unit) capsule (Vitamin D2) multivitamin 1 tab PO DAILY 03/07/24 07/02/24 acetaminophen 500 mg tablet 1,000 mg PO HS PRN Pain 04/30/24 07/02/24 lithium carbonate 150 mg capsule 150 mg PO DAILY 07/02/24 07/02/24 Previous Rx's Medication Instructions Recorded aspirin 81 mg tablet,delayed 81 mg PO BID #0 tabs 03/12/24 release calcium ER 600 mg (as carb,cit)-D3 1 tab PO BID #1 tab 03/12/24 12.5 mcg (500 unit) tablet, ext.rel levothyroxine 100 mcg tablet 100 mcg PO UD #90 tabs 04/06/24 lithium carbonate 300 mg capsule 300 mg PO HS #90 caps 04/06/24 mirtazapine 7.5 mg tablet 7.5 mg PO DAILY #30 tabs 06/29/24 Results & Data (ED) Vital Signs Vital Signs - 24 hr 07/02/24 10:30 07/02/24 11:00 07/02/24 11:38 Temperature 36.4 C L Temperature Source Temporal Artery Scan Pulse Rate 99 H 65 Pulse Rate [Apical] 65 Pulse Rhythm Regular Pulse Strength Normal Respiratory Rate 20 22 Respiratory Effort / Characteristics Non-Labored Respiratory Depth Normal Normal Respiratory Pattern Regular Blood Pressure 207/174 H Blood Pressure [Left Arm] 143/66 H Blood Pressure Mean 185 Blood Pressure Mean [Left Arm] 91 Blood Pressure Position Sitting Pulse Oximetry 96 98 Oxygen Delivery Method Room Air Room Air Sepsis Recent Fever Within 48 Hours No Sepsis New/Unexplained Change in Mental Status N/A Sepsis Action Taken by Nursing No Action Required 07/02/24 12:48 Temperature Temperature Source Pulse Rate Pulse Rate [Apical] 61 Pulse Rhythm Pulse Strength Respiratory Rate 21 Respiratory Effort / Characteristics Respiratory Depth Normal Respiratory Pattern Blood Pressure Blood Pressure [Left Arm] 140/69 Blood Pressure Mean Blood Pressure Mean [Left Arm] 92 Blood Pressure Position Pulse Oximetry 100 Oxygen Delivery Method Room Air Sepsis Recent Fever Within 48 Hours Sepsis New/Unexplained Change in Mental Status Sepsis Action Taken by Nursing Laboratory Data 07/02/24 11:01 07/02/24 11:01 Lab Results 07/02/24 07/02/24 07/02/24 Range/Units 11:01 11:27 12:53 WBC 9.45 (4.8-10.8) K/ul RBC 3.60 L (4.20-5.40) M/uL Hgb 11.2 L (12.0-16.0) g/dl Hct 35.7 L (37.0-47.0) % MCV 99.2 (80.0-100.0) fL MCH 31.1 (25.0-34.0) pg MCHC 31.4 L (32.0-36.0) g/dL RDW Std Deviation 46.5 H (36.4-46.3) fL RDW Coeff of Aly 12.7 (11.5-14.5) % Plt Count 280 (130-400) K/uL MPV 10.3 (9.4-12.4) fL Immature Gran % (Auto) 0.3 % Neut % (Auto) 78.7 % Lymph % (Auto) 9.2 % [place] % (Auto) 6.7 % Eos % (Auto) 4.6 % Baso % (Auto) 0.5 % Neut # (Auto) 7.44 H (1.40-6.50) K/uL Lymph # (Auto) 0.87 L (1.20-3.40) K/uL [place] # (Auto) 0.63 H (0.11-0.59) K/uL Eos # (Auto) 0.43 (0.00-0.50) K/uL Baso # (Auto) 0.05 (0.00-0.20) K/uL Immature Gran # (Auto) 0.03 (0.01-0.20) K/uL PT 10.0 (9.0-12.0) Seconds INR 0.9 (0.9-1.1) Sodium 137 (136-145) mmol/L Potassium 4.5 (3.5-5.1) mmol/L Chloride 107 (98-107) mmol/L Carbon Dioxide 26 (21-32) mmol/L Anion Gap 4 (3-11) BUN 34 H (6-23) mg/dl Creatinine 1.72 H (0.6-1.2) mg/dl Est Cr Clr Drug Dosing 18.1 ml/min eGFR 29.16 BUN/Creatinine Ratio 19.8 (10-20) Glucose 87 (70-99(Fasting)) mg/dl Calcium 12.1 H* (8.6-10.3) mg/dl Ionized Calcium 1.55 H (1.12-1.32) mmol/L Phosphorus 3.2 (2.5-4.9) mg/dl Magnesium 2.3 (1.7-2.4) mg/dl Total Bilirubin 0.5 (0.2-1.0) mg/dl AST 11 L (13-39) U/L ALT 8 (7-52) U/L Alkaline Phosphatase 58 (34-104) U/L Troponin I High Sens < 2.3 (0-14) pg/ml Total Protein 6.9 (6.0-8.3) gm/dl Albumin 4.4 (3.4-5.0) gm/dl Globulin 2.5 (2.5-4.0) gm/dl Albumin/Globulin Ratio 1.8 (0.9-2) Lipase 39 (11-82) U/L 25-OH Vitamin D Total > 120.0 H (30-100) ng/ml TSH 0.395 (0.300-4.500) uIu/ml PTH Intact 52.3 (12.0-88.0) pg/ml PTH Related Protein Cancelled Urine Color Yellow Urine Appearance Cloudy A (Clear) Urine pH 7.5 (4.5-7.5) Ur Specific [place] 1.013 (1.000-1.030) Urine Protein Negative (Negative) Urine Glucose (UA) Negative (Negative) Urine Ketones Negative (Negative) Urine Blood Negative (Negative) Urine Nitrite Negative (Negative) Urine Bilirubin Negative (Negative) Urine Urobilinogen Negative (Negative) Ur Leukocyte Esterase Negative (Negative) Urine WBC (Auto) 0-5 (0-5) /hpf Urine RBC (Auto) 0-2 (0-2) /hpf U Hyaline Cast (Auto) 0-2 (0-2) /lpf U Epithel Cells (Auto) 0-2 (0-2) /hpf Urine Bacteria (Auto) None Seen (None Seen) [place] 2.0 H* (0.6-1.2) mmol/L Administered Medications Discontinued Medications Sodium Chloride (Nss) 1,000 mls @ 999 mls/hr IV .Q1H1M ONE Stop: 07/02/24 11:39 Last Infusion: 07/02/24 12:33 Dose: Infused Documented By: BRWily Admin: 07/02/24 10:59 Dose: 999 mls/hr Documented By: CHE Sodium Chloride (Nss) 1,000 mls @ 999 mls/hr IV .Q1H1M ONE Stop: 07/02/24 13:02 Last Infusion: 07/02/24 13:51 Dose: Infused Documented By: Admin: 07/02/24 12:44 Dose: 999 mls/hr Documented By: CHE Imaging Data Radiologist's Impression: Chest X-Ray 07/02/24 12:00 XR chest 1V portable CLINICAL HISTORY: Hypercalcemia TECHNIQUE: Single frontal radiograph of the chest was obtained. Comparison: Comparison is made to chest radiograph 03/07/2024 FINDINGS: An implanted pacemaker is seen. Calcified aortic knob is seen. The lungs are clear. No evidence of pleural effusion or pneumothorax. Interval healing of right humeral neck. IMPRESSION: No acute chest disease. ACT 112: Negative or not required by law. Electronically signed by: Eduard Beckett M.D. 07/02/2024 1:04 PM Renal Ultrasound 07/02/24 12:48 RENAL ULTRASOUND HISTORY: GUY COMPARISON: None FINDINGS: There is a 2.4 cm cyst upper pole right kidney. Right kidney measures 10 x 5 cm. There is no hydronephrosis. There is normal Doppler flow. Left kidney measures 10 x 5 cm. There is no hydronephrosis. There is Doppler flow. No renal calculi seen bilaterally. Renal cortical thickness is normal. Visualized urinary bladder is grossly unremarkable. IMPRESSION: No hydronephrosis. ACT 112: Negative or not required by law. Electronically signed by: Travis Razo M.D. 07/02/2024 2:48 PM Discharge Plan Visit Data Chief Complaint: Abnormal Labs/Diagnostic Testing Stated Complaint: REF BY DOC, LIFE THREATENING LEVELS OF CALCIUM ED Provider: Hal Brian Discharge Problem: Hypercalcemia Discharge Instructions Interventions: ED Discharge Assessment Last Done: 07/02/24 14:40
[2024-07-02] MEDS: SODIUM CHLORIDE 0.9% 1,000 ML IV ONE ×2 (10:59→12:44)
[2024-07-02 11:39] LABS: Basophils # (auto) 0.05 K/uL (0.00-0.20); Basophils % (auto) 0.5 %; Eosinophils # (auto) 0.43 K/uL (0.00-0.50); Eosinophils % (auto) 4.6 %; Hematocrit (blood only) 35.7 % (37.0-47.0); Hemoglobin 11.2 g/dl (12.0-16.0); Immature Granulocytes # (auto) 0.03 K/uL (0.01-0.20); Immature Granulocytes % (auto) 0.3 %; Lymphocytes # (auto) 0.87 K/uL (1.20-3.40); Lymphocytes % (auto) 9.2 %; Mean Corpuscular Hemoglobin 31.1 pg (25.0-34.0); Mean Corpuscular Hgb Conc 31.4 g/dL (32.0-36.0); Mean Corpuscular Volume 99.2 fL (80.0-100.0); Mean Platelet Volume 10.3 fL (9.4-12.4); Monocytes # (auto) 0.63 K/uL (0.11-0.59); Monocytes % (auto) 6.7 %; Neutrophils # (auto) 7.44 K/uL (1.40-6.50); Neutrophils % (auto) 78.7 %; Platelet Count 280 K/uL (130-400); RDW Coefficient of Variation 12.7 % (11.5-14.5); RDW Standard Deviation 46.5 fL (36.4-46.3); White Blood Count 9.45 K/ul (4.8-10.8)
[2024-07-02 11:43] LABS: Appearance Urine Cloudy (Clear); Bacteria Urine Automated None Seen (None Seen); Bilirubin Urine Negative (Negative); Blood Urine Negative (Negative); Cast Urine Automated 0-2 /lpf (0-2); Color Urine Yellow; Epithelial Cell Urine Auto 0-2 /hpf (0-2); Glucose Urine UA Negative (Negative); Ketones Urine Negative (Negative); Leukocyte Esterase Urine Negative (Negative); Nitrite Urine Negative (Negative); Protein Urine Negative (Negative); RBC Urine Automated 0-2 /hpf (0-2); Specific Gravity Urine 1.013 (1.000-1.030); Urobilinogen Urine Negative (Negative); WBC Urine Automated 0-5 /hpf (0-5); pH Urine 7.5 (4.5-7.5)
[2024-07-02 11:52] LABS: INR 0.9 (0.9-1.1)
[2024-07-02 11:57] LABS: Alanine Aminotransferase 8 U/L (7-52); Albumin Globulin Ratio 1.8 (0.9-2); Albumin Level 4.4 gm/dl (3.4-5.0); Alkaline Phosphatase 58 U/L (34-104); Anion Gap 4 (3-11); Aspartate Aminotransferase 11 U/L (13-39); BUN Creatinine Ratio 19.8 (10-20); Bilirubin,Total 0.5 mg/dl (0.2-1.0); Blood Urea Nitrogen 34 mg/dl (6-23); Calcium 12.1 mg/dl (8.6-10.3); Carbon Dioxide 26 mmol/L (21-32); Chloride 107 mmol/L (98-107); Creatinine Clr Calc Pharmacy 18.1 ml/min; Globulin 2.5 gm/dl (2.5-4.0); Glucose 87 mg/dl (70-99(Fasting)); Lipase 39 U/L (11-82); Magnesium 2.3 mg/dl (1.7-2.4); Potassium 4.5 mmol/L (3.5-5.1); Sodium 137 mmol/L (136-145); Total Protein 6.9 gm/dl (6.0-8.3); Troponin I High Sensitivity < 2.3 pg/ml (0-14)
--- NOTE | 2024-07-02 12:16 | History & Physical Report ---
Date of Service July 02, 2024 Assessment & Plan (1) Hypercalcemia: Plan: PTH previously inappropriately normal. Will repeat. Given this primary or tertiary hyperparathyroidism is unlikely. Dennis causes hyperparathyroidism therefore less likely however will get level irregardless Patient on vitamin D and calcium therefore this along with some dehydration is the most likely cause Add Vitamin D 25 and 1,25, phosphorus, ionized calcium and TSH level Given weight loss will get CXR, PTHrP and myeloma workup NSS @ 150ml/hr overnight and repeat calcium and ionized calcium levels in AM to assess need for calcitonin/bisphosphonate therapy (2) GUY (acute kidney injury): Plan: US renal to assess for obstructive cause Rehydrate overnight with NSS and repeat Cr in AM (3) Anxiety: Plan: Continue mirtazapine (4) Osteoporosis: Plan Bipolar - lithium level pending VTE Prophylaxis - heparin 5000 units SQ BID Diet - regular Disposition - admit to med/surg Admission and Anticipated Discharge Date Admission Date: July 02, 2024 History of Present Illness Chief Complaint: Hypercalcemia Primary Care Provider: Marcin Noel MD Sonia Carey is an 84 year old female who presents to the ER on advice of her PCP due to hypercalcemia. Unable to get much history from the patient due to confusion. She reports feeling more confused than normally and generally weak but finds it difficult to give me timelines for her symptoms. She does note paresthesias in her finger tips. On discussion with her over the phone he reports she has not been doing well following her right proximal humerus and right femur fracture. Her right arm has been hindering her ability to use the walker to help her mobility. However she was progressing up until the last couple of weeks when she has suddenly become much worse and going downhill. Her weight has dropped from 125lb to 95lb. She is not eating well. Reduced strength and less ability to ambulate with more shuffling. Generally she appears more confused. He denies she is having any issues with constipation. He is concerned she is having PTSD from her fall and having increased difficulty sleeping and eating - he notes her PCP just started mirtazapine which she has taken for the last 2 days. No difficulty swallowing. She is under rheumatology for osteoporosis on Reclast yearly infusions - her reports her last infusion was in the summer 2023. Allergies Allergy/AdvReac Type Severity Reaction Status Date / Time No Known Drug Allergies Allergy Unknown . Verified 07/02/24 09:30 Home Medications Medication Instructions Recorded Confirmed Type ergocalciferol (vitamin D2) 1,250 1,250 mcg PO UD 03/07/24 07/02/24 History mcg (50,000 unit) capsule (Vitamin D2) multivitamin 1 tab PO DAILY 03/07/24 07/02/24 History aspirin 81 mg tablet,delayed 81 mg PO BID #0 tabs 03/12/24 07/02/24 Rx release calcium ER 600 mg (as carb,cit)-D3 1 tab PO BID #1 tab 03/12/24 07/02/24 Rx 12.5 mcg (500 unit) tablet, ext.rel levothyroxine 100 mcg tablet 100 mcg PO UD #90 tabs 04/06/24 07/02/24 Rx lithium carbonate 300 mg capsule 300 mg PO HS #90 caps 04/06/24 07/02/24 Rx acetaminophen 500 mg tablet 1,000 mg PO HS PRN Pain 04/30/24 07/02/24 History mirtazapine 7.5 mg tablet 7.5 mg PO DAILY #30 tabs 06/29/24 07/02/24 Rx lithium carbonate 150 mg capsule 150 mg PO DAILY 07/02/24 07/02/24 History Past Med/Surg History Problem List (Updated 07/02/24 @ 23:46 by Kavon Alejandro MD) Hypercalcemia (Acute) GUY (acute kidney injury) Hypercalcemia Anemia Anxiety Malnutrition Acute blood loss anemia Pathologic fracture (03/07/24) from a fall Fracture of humeral head (Acute 03/07/24) Impacted and comminuted right humeral head/neck fracture from a fall Closed fracture of right proximal humerus (03/07/24) Impacted and comminuted right humeral head/neck fracture from a fall Intertrochanteric fracture of right femur (03/07/24) from a fall Dehydration Vasomotor rhinitis Chronic kidney disease (CKD) stage G3a/A1, moderately decreased glomerular filtration rate (GFR) between 45-59 mL/min/1.73 square meter and albuminuria creatinine ratio less than 30 mg/g Hand pain, right Abnormality of gait due to impairment of balance Wrist pain, right Rhinorrhea Chronic rhinitis Carpal tunnel syndrome of right wrist Post herpetic neuralgia Osteoporosis Fall Open fracture of right radius (Acute 10/05/20) distal right radial fracture from a fall Fracture of distal end of right ulna (Acute 10/05/20) Displaced fracture of the right ulnar styloid from a fall Cardiac pacemaker Sinus node dysfunction Medical History Bipolar I disorder, single manic episode Arthritis Internal hemorrhoids Diverticulosis Surgical History History of breast lump removal H/O wrist surgery R wrist Family History Mother Breast cancer Denies family history of Ovarian cancer Prostate cancer Diabetes Myocardial infarction Colorectal cancer Social History Smoking Status: Never smoker Second Hand Exposure: No; Do You Dip or Chew Tobacco: No; Hx Alcohol Use: No Hx Substance Use: No Preferred Language: Bulgarian Communication Ability: Effective Visual Impairment: Limited Hearing Ability: Normal Oven Dauber Required: No Beliefs That Will Affect Care: None marital status: Current Living Situation: Spouse 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 occupational status: 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 How many Children do You have: 1 How many Children do You have Comment: adopted child Feels Safe at Home: Yes Safety Concerns: Feels Safe At This Time Childhood Exposure to Second-Hand Smoke: No Diet: regular Diet Comment: very little meat caffeine: Yes during the past year weight has: remained stable Dental Care, Regularly: Yes Physical Activity Frequency: 3-4 Times per Week Physical Activity Frequency Comment: walking Seatbelt Use: always Sunscreen Use: Yes Assistive Devices: None Review of Systems Review of Systems: All systems reviewed & are unremarkable except as noted in HPI & below Physical Exam Constitutional: + cachectic and + frail appearing; no ac annette distress ENMT: Mouth: + dry oral mucous membranes Respiratory: normal respiratory effort, lungs clear to auscultation Cardiovascular: RRR, no murmur, no edema Gastrointestinal (Abdomen): normal bowel sounds, soft, nontender, no hepatosplenomegaly Neurologic: moves all extremities, awake and + confused Psychiatric: Orientation: alert, oriented to person and oriented to place; + not oriented to time Results & Data Results & Data Vital Signs (Past 12 Hours) Vital Signs Temp Pulse Pulse Resp BP BP Pulse Ox 07/02/24 11:38 65 22 143/66 H 98 07/02/24 11:00 65 07/02/24 10:30 36.4 C L 99 H 20 207/174 H 96 O2 Del Method 07/02/24 11:38 Room Air 07/02/24 11:00 07/02/24 10:30 Room Air Laboratory Results Abnormal lab results 07/02/24 07/02/24 Range/Units 11:01 11:27 RBC 3.60 L (4.20-5.40) M/uL Hgb 11.2 L (12.0-16.0) g/dl Hct 35.7 L (37.0-47.0) % MCHC 31.4 L (32.0-36.0) g/dL RDW Std Deviation 46.5 H (36.4-46.3) fL Neut # (Auto) 7.44 H (1.40-6.50) K/uL Lymph # (Auto) 0.87 L (1.20-3.40) K/uL [place] # (Auto) 0.63 H (0.11-0.59) K/uL BUN 34 H (6-23) mg/dl Creatinine 1.72 H (0.6-1.2) mg/dl Calcium 12.1 H* (8.6-10.3) mg/dl AST 11 L (13-39) U/L Urine Appearance Cloudy A (Clear) Diagnostic Findings XR chest 1V portable CLINICAL HISTORY: Hypercalcemia TECHNIQUE: Single frontal radiograph of the chest was obtained. Comparison: Comparison is made to chest radiograph 03/07/2024 FINDINGS: An implanted pacemaker is seen. Calcified aortic knob is seen. The lungs are clear. No evidence of pleural effusion or pneumothorax. Interval healing of right humeral neck. IMPRESSION: No acute chest disease. Medications Administered ER Medications Given: Normal saline 1L bolus Normal saline 1L bolus ECG Rate (beats per minute): 71 Rhythm: other (atrial paced with prolonged AV conduction) Findings: + nonspecific-ST abn Comparison ECG Date: from (March 07, 2024) Change: no significant change Code Status & VTE Plan Code Status Full VTE Prophylaxis Plan VTE Prophylaxis will be ordered: Yes PG Care Time/CCT Total # of Minutes Spent Total Time Spent with Patient: Total time spent is greater than 50% in coordination of care (as documented) at patient's floor/unit and/or counseling patient: Coding Level of Care Code 99857 INT INP/OBS CARE MIN Diagnoses Hypercalcemia E83.52 GUY (acute kidney injury) N17.9 Anxiety F41.9 Osteoporosis M81.0
[2024-07-02 12:56] LABS: Phosphorus 3.2 mg/dl (2.5-4.9)
--- NOTE | 2024-07-02 13:06 | XRay Report ---
XR chest 1V portable CLINICAL HISTORY: Hypercalcemia TECHNIQUE: Single frontal radiograph of the chest was obtained. Comparison: Comparison is made to chest radiograph 03/07/2024 FINDINGS: An implanted pacemaker is seen. Calcified aortic knob is seen. The lungs are clear. No evidence of pl eural effusion or pneumothorax. Interval healing of right humeral neck. IMPRESSION: No acute chest disease. ACT 112: Negative or not required by law. Electronically signed by: Eduard Beckett M.D. 07/02/2024 1:04 PM
[2024-07-02 13:14] LABS: Thyroid Stimulating Hormone 0.395 uIu/ml (0.300-4.500)
--- NOTE | 2024-07-02 13:50 | Electrocardiogram Report ---
Test Reason : Blood Pressure : */* mmHG Vent. Rate : 71 BPM Atrial Rate : 71 BPM P-R Int : 224 ms QRS Dur : 84 ms QT Int : 358 ms P-R-T Axes : 61 36 88 degrees QTcB Int : 389 ms Atrial-paced rhythm with prolonged AV conduction Nonspecific ST abnormality Abnormal ECG When compared with ECG of 07-Mar-2024 11:51, No significant change was found Confirmed by Steven Menjivar ([id number]) on 07/02/2024 1:49:28 PM Referred By: Marcin Noel Confirmed By: Steven Menjivar
[2024-07-02] MEDS ORDERED: ONDANSETRON INJ 2 MG/ML 2 ML VIAL IV PRN (14:40)
--- NOTE | 2024-07-02 14:49 | Ultrasound Report ---
RENAL ULTRASOUND HISTORY: GUY COMPARISON: None FINDINGS: There is a 2.4 cm cyst upper pole right kidney. Right kidney measures 10 x 5 cm. There is n o hydronephrosis. There is normal Doppler flow. Left kidney measures 10 x 5 cm. There is no hydronephrosis. There is Doppler flow. No renal calculi seen bilaterally. Renal cortical thickness is normal. Visualized urinary bladder is grossly unremarkable. IMPRESSION: No hydronephrosis. ACT 112: Negative or not required by law. Electronically signed by: Travis Razo M.D. 07/02/2024 2:48 PM
[2024-07-02] MEDS: SODIUM CHLORIDE 0.9% 1,000 ML IV SCH (16:05)
[2024-07-02] MEDS: MIRTAZAPINE TAB 15 MG TAB PO SCH (21:13)
[2024-07-02] MEDS: LEVOTHYROXINE SODIUM 100 MCG TABLET PO SCH (21:13)
[2024-07-02] MEDS: HEPARIN SOD 5,000 UNIT/0.5 ML VIAL SQ SCH (21:16)
[2024-07-03] MEDS: SODIUM CHLORIDE 0.9% 1,000 ML IV SCH (08:11)
[2024-07-03 09:17] LABS: BUN Creatinine Ratio 18.8 (10-20); Calcium 10.1 mg/dl (8.6-10.3); Creatinine Clr Calc Pharmacy 23.4 ml/min; Potassium 4.6 mmol/L (3.5-5.1)
[2024-07-03 09:45] LABS: Basophils # (auto) 0.04 K/uL (0.00-0.20); Basophils % (auto) 0.5 %; Hematocrit (blood only) 28.6 % (37.0-47.0); Hemoglobin 8.7 g/dl (12.0-16.0); Immature Granulocytes # (auto) 0.03 K/uL (0.01-0.20); Immature Granulocytes % (auto) 0.4 %; Lymphocytes # (auto) 1.01 K/uL (1.20-3.40); Lymphocytes % (auto) 12.7 %; Mean Corpuscular Hemoglobin 30.2 pg (25.0-34.0); Mean Corpuscular Hgb Conc 30.4 g/dL (32.0-36.0); Mean Corpuscular Volume 99.3 fL (80.0-100.0); Mean Platelet Volume 10.2 fL (9.4-12.4); Monocytes # (auto) 0.61 K/uL (0.11-0.59); Monocytes % (auto) 7.6 %; Neutrophils # (auto) 5.89 K/uL (1.40-6.50); Neutrophils % (auto) 73.8 %; Platelet Count 209 K/uL (130-400); RDW Coefficient of Variation 12.7 % (11.5-14.5); Red Blood Count 2.88 M/uL (4.20-5.40); White Blood Count 7.98 K/ul (4.8-10.8)
[2024-07-03] MEDS: MEGESTROL ACETATE SUSP 400 MG/10 ML UDC PO SCH (12:27)
--- NOTE | 2024-07-03 12:52 | Hospitalist Progress Note ---
Date of Service July 03, 2024 Assessment & Plan (1) Toxic encephalopathy: Plan: Due to recent addition of mirtazapine in my opinion. This has been discontinued. Supportive care. IV fluids (2) Hypercalcemia: Plan: Mild on admission. Now resolved. Continue IV fluids. Vitamin D and calcium supplements are on hold (3) [place] toxicity: Plan: Mildly elevated lithium level on admission. Serial labs. [place] is on hold (4) GUY (acute kidney injury): Plan: Creatinine improved with IV fluids. Renal ultrasound negative for obstruction or hydronephrosis. Continue IV fluids. Serial labs (5) Osteoporosis: (6) Anorexia: Plan: Anorexia and significant weight loss producing severe proteincalorie malnutrition. Megace has been started. Plan To be determined Admission and Anticipated Discharge Date Admission Date: July 02, 2024 Subjective The patient appears to have developed toxic encephalopathy after recent addition of mirtazapine. Mild hypercalcemia on admission has resolved. Vitamin D and calcium have been placed on hold on admission. No evidence of UTI. [place] level was elevated on admission and has been placed on hold. Serum osmolarity is 298. Continue IV fluids for now. Megace started for anorexia and weight loss. Review of Systems 2 Review of Systems: The patient is awake but disoriented and unable to accurately answer any questions regarding review of systems at this time Physical Exam 2 Physical Exam: General-alert but disoriented. No fever HEENT - head atraumatic and normocephalic, pupils equal and reactive to light, extraocular muscles intact Neck-no lymphadenopathy or thyromegaly, trachea midline Chest-clear to auscultation. No rales, wheezing or rhonchi Cardiac-regular rate and rhythm, normal S1 and S2 Abdomen-normal bowel sounds, no hepatosplenomegaly Extremities-no cyanosis, clubbing, or edema Neuro-cranial nerves II through XII intact, motor and sensory function within normal limits, strength symmetrical, no focal deficits Psych-confused and mildly agitated Results & Data Results & Data Vital Signs (Past 12 Hours) Vital Signs Temp Pulse Resp BP Pulse Ox O2 Del Method 07/03/24 07:34 36.4 C L 101 H 18 121/69 91 Room Air Laboratory Results 07/03/24 08:51 07/03/24 08:11 PG Care Time/CCT Total # of Minutes Spent Total Time Spent with Patient: Total time spent is greater than 50% in coordination of care (as documented) at patient's floor/unit and/or counseling patient: Coding Level of Care Code 54130 SUB INP/OBS CARE 350MIN Diagnoses Toxic encephalopathy G92.9 Hypercalcemia E83.52 [place] toxicity T56.891A GUY (acute kidney injury) N17.9 Osteoporosis M81.0 Anorexia R63.0
[2024-07-04 06:14] LABS: Basophils # (auto) 0.04 K/uL (0.00-0.20); Basophils % (auto) 0.4 %; Eosinophils # (auto) 0.35 K/uL (0.00-0.50); Eosinophils % (auto) 3.8 %; Hemoglobin 8.4 g/dl (12.0-16.0); Immature Granulocytes # (auto) 0.03 K/uL (0.01-0.20); Immature Granulocytes % (auto) 0.3 %; Mean Corpuscular Hemoglobin 30.7 pg (25.0-34.0); Mean Corpuscular Hgb Conc 31.1 g/dL (32.0-36.0); Mean Corpuscular Volume 98.5 fL (80.0-100.0); Mean Platelet Volume 10.1 fL (9.4-12.4); Monocytes # (auto) 0.88 K/uL (0.11-0.59); Monocytes % (auto) 9.5 %; Neutrophils # (auto) 6.67 K/uL (1.40-6.50); Platelet Count 208 K/uL (130-400); RDW Coefficient of Variation 12.7 % (11.5-14.5); RDW Standard Deviation 45.4 fL (36.4-46.3); Red Blood Count 2.74 M/uL (4.20-5.40); White Blood Count 9.27 K/ul (4.8-10.8)
[2024-07-04 06:26] LABS: BUN Creatinine Ratio 16.5 (10-20); Calcium 9.7 mg/dl (8.6-10.3); Creatinine Clr Calc Pharmacy 28.6 ml/min; Potassium 4.1 mmol/L (3.5-5.1)
[2024-07-04 07:06] VITALS: BP 135/69; RESP 18; TEMP 97.5; O2SAT 99
[2024-07-04] MEDS: LITHIUM CARBONATE 300 MG TAB PO SCH (11:13)
--- NOTE | 2024-07-04 11:16 | Discharge Summary ---
Discharge Summary Date of Service July 04, 2024 Principal Dx & Hospital Course #1 = Principal Diagnosis (1) Toxic encephalopathy: Due to recent addition of mirtazapine in my opinion. This has been discontinued. Supportive care. Treated while hospitalized with IV fluids. Now resolved (2) Hypercalcemia: Mild on admission. Now resolved. Treated while hospitalized with IV fluids. Vitamin D and calcium supplements held while hospitalized. (3) [place] toxicity: Mildly elevated lithium level on admission. Now normalized. [place] has been restarted. (4) GUY (acute kidney injury): Creatinine improved with IV fluids. Renal ultrasound negative for obstruction or hydronephrosis. Serial labs (5) Osteoporosis: Treated with calcium supplements and vitamin D (6) Anorexia: Anorexia and significant weight loss producing severe proteincalorie malnutrition. Megace has been started. Plan Home today, July 04. Continue Megace suspension daily to see if it helps with anorexia. Stop mirtazapine. All other medications remain the same. Admission HPI Per Admitting Provider Sonia Carey is an 84 year old female who presents to the ER on advice of her PCP due to hypercalcemia. Unable to get much history from the patient due to confusion. She reports feeling more confused than normally and generally weak but finds it difficult to give me timelines for her symptoms. She does note paresthesias in her finger tips. On discussion with her over the phone he reports she has not been doing well following her right proximal humerus and right femur fracture. Her right arm has been hindering her ability to use the walker to help her mobility. However she was progressing up until the last couple of weeks when she has suddenly become much worse and going downhill. Her weight has dropped from 125lb to 95lb. She is not eating well. Reduced strength and less ability to ambulate with more shuffling. Generally she appears more confused. He denies she is having any issues with constipation. He is concerned she is having PTSD from her fall and having increased difficulty sleeping and eating - he notes her PCP just started mirtazapine which she has taken for the last 2 days. No difficulty swallowing. She is under rheumatology for osteoporosis on Reclast yearly infusions - her reports her last infusion was in the summer 2023. Discharge Exam General-alert but disoriented. No fever HEENT - head atraumatic and normocephalic, pupils equal and reactive to light, extraocular muscles intact Neck-no lymphadenopathy or thyromegaly, trachea midline Chest-clear to auscultation. No rales, wheezing or rhonchi Cardiac-regular rate and rhythm, normal S1 and S2 Abdomen-normal bowel sounds, no hepatosplenomegaly Extremities-no cyanosis, clubbing, or edema Neuro-cranial nerves II through XII intact, motor and sensory function within normal limits, strength symmetrical, no focal deficits Psych-mental status has returned to baseline Discharge Plan Discharge Items Patient Disposition: Home - Self-Care Reason For Visit: HYPERCALCEMIA Discharge Diagnosis: Suspected toxic encephalopathy from mirtazapine, mild hypercalcemia, mild lithium toxicity, acute kidney injury, anorexia and weight loss Activity: Resume your previous activity Non-emergency contact: Primary Care Provider Call non-emergency contact if: you have any medication questions and your symptoms worsen Follow-up/Referrals: Marcin Noel MD [Primary Care Provider] - Diet: Regular Addtl Attending Provider Instructions: Take megestrol suspension once a day as an appetite stimulant. Stop mirtazapine Pending Studies at Discharge: No Stand-Alone Forms: My [facility] Sling, Smoking Cessation Medications and DC Order Prescriptions: New megestrol 400 mg/10 mL (40 mg/mL) Suspension 400 mg PO QAM Qty: 240 0RF Continued lithium carbonate 300 mg capsule 300 mg PO HS Qty: 90 3RF levothyroxine 100 mcg tablet 100 mcg PO UD Qty: 90 3RF Rx Instructions: recently changed from daily to 6 times a week. Takes at night. acetaminophen 500 mg tablet 1,000 mg PO HS PRN (Reason: Pain) Rx Instructions: Unable to verify OTC meds at this date/time. mirtazapine 7.5 mg tablet 7.5 mg PO DAILY Qty: 30 2RF multivitamin Tablet 1 tab PO DAILY Rx Instructions: Unable to verify OTC meds at this date/time. ergocalciferol (vitamin D2) [Vitamin D2] 1,250 mcg (50,000 unit) capsule 1,250 mcg PO UD Rx Instructions: Last filled 02/2024 x90 day supply. Original Directions: 1250mcg by mouth twice weekly aspirin 81 mg Tablet,Delayed Release (Dr/Ec) 81 mg PO BID Qty: 0 0RF Rx Instructions: Unable to verify OTC meds at this date/time. calcium carb, citrate-vit D3 600 mg-12.5 mcg (500 unit) tablet extended release 1 tab PO BID Qty: 1 0RF Rx Instructions: Unable to verify OTC meds at this date/time. lithium carbonate 150 mg capsule 150 mg PO DAILY Rx Instructions: Unable to verify if pt takes this w/ 300mg capsule or alone, pharmacy did not have detailed directions but show pt has been getting them together consistently. Discharge Orders: Discharge Order (Routine); Ordered 07/04/24 Ordered By: Jose C Sheriff Admission Data Admit Date/Time: 07/02/24 13:15 Attending Provider: Jose C Sheriff Admit Provider: Kavon Alejandro Primary Care Provider: Marcin Noel Other Providers: Kavon Alejandro; [facility] Hospital Stay Data Consultations 07/02/24 12:03 ED Decision to Admit Stat 07/02/24 12:08 ED Decision to Admit Stat Diagnostic Imagining Performed 07/02/24 12:48 US Renal Bladder [US renal/blad retro comp] Routine Pending Results Patient Have Any Pending Studies at Discharge: No Discharge Instructions Given to Patient (Per Discharging Provider) Take megestrol suspension once a day as an appetite stimulant. Stop mirtazapine Total Time Total Time Spent Total Time Spent (In Minutes): 45 minutes Coding Level of Care Code 08851 INP/OBS DISCH >30 MIN Diagnoses Toxic encephalopathy G92.9 Hypercalcemia E83.52 [place] toxicity T56.891A GUY (acute kidney injury) N17.9 Osteoporosis M81.0 Anorexia R63.0
[2024-07-04 11:37] VITALS: PULSE 68
[2024-07-04] MEDS ORDERED: LITHIUM CARBONATE 300 MG TAB PO SCH (21:00)
== END 2024-07-04 13:02 | disposition home or self-care (01) | DRG 640 ==
LOC: ED 10:26 → EDINP 13:15 → SUATTDRO 13:15 → 3N 14:40